=== PATIENT | female | born 1950 | race Caucasian/White ===

== ENCOUNTER 2019-06-10 20:40 | Observation (INO) | payer MEDICARE, OTHER, SELFPAY ==
[2019-06-10 20:42] VITALS: BP 157/86; PULSE 87; RESP 18; TEMP 36.2; O2SAT 100; BMI 25.0
--- NOTE | 2019-06-10 20:50 | EKG12_ITS ---
Test Reason : CP Blood Pressure : / mmHG Vent. Rate : 081 BPM Atrial Rate : 081 BPM P-R Int : 106 ms QRS Dur : 086 ms QT Int : 394 ms P-R-T Axes : -06 017 035 degrees QTc Int : 457 ms Sinus rhythm with short TN Otherwise normal ECG Confirmed by JOHNATHAN WILLIS, FARHANA ([id number]), it risk and assurance manager RYNE BLAS ([id number]) on 06/12/2019 11:45:28 AM Referred By: SHAINA Confirmed By:DERIK MANN MD
--- NOTE | 2019-06-10 21:45 | RAD_ITS ---
STUDY: X-RAY CHEST REASON FOR EXAM: Female, 68 years old. Chest pain TECHNIQUE: Portable chest COMPARISON: None. FINDINGS: There is scattered mild pulmonary scarring. There are scattered bulla.. There is no demonstrated pleural abnormality. Normal size heart. Normal mediastinum and ryan. Normal visualized pulmonary arteries. Normal visualized aortic arch and descending thoracic aorta. Normal visualized thoracic spine. Normal visualized ribs, clavicles, and shoulders. There is no demonstrated abnormality of the visualized soft tissue structures of the upper abdomen. RAD/Chest 1 View (Portable) IMPRESSION: Likely COPD changes Scattered pulmonary scarring. Electronically Signed: Hayden Moser, at 5:46 EDT Tel , Service support ,
[2019-06-10 21:59] VITALS: PULSE 76; RESP 18; O2SAT 96; O2SAT 97
[2019-06-10 22:25] LABS: Absolute Lymphocyte Count 1.09 X10^3/uL (0.83-4.51); Absolute Neutrophil Count 2.9 X10^3/uL (2.0-7.7); Basophil# 0.04 X10^3/uL; Basophil% 0.9 % (0-1); Eosinophils% 2.3 % (0-5); Hemoglobin 10.5 g/dL (12.0-15.0); Lymphocyte # 1.09 X10^3/ul (4.0); Lymphocyte % 24.5 % (19-41); Mean Corp Hgb Conc 32.8 g/dL (32-36); Mean Corpuscular Hgb 29.3 pg (27.0-32.0); Mean Corpuscular Volume 89.4 fL (81-99); Mean Platelet Vol. 10.1 fl (6.2-12.0); Monocyte# 0.31 X10^3/uL; NRBC Flagged by Analyzer 0 % (0-5); Neutrophil # 2.89 X10^3/uL (2.7-7.7); Neutrophil % 65.1 % (47-70); POSITIVE MORPHOLOGY YES; Platelet Count 205 K/mm3 (150-450); RBC Distribution Width SD 39.1 fl (35.1-43.9); Red Blood Count 3.58 M/mm3 (4.2-5.4); White Blood Count 4.4 K/mm3 (4.4-11.0)
[2019-06-10 22:29] LABS: Differential Indicated SCAN CRITERIA MET
[2019-06-10 22:36] LABS: International Normalized Ratio 1.1; Prothrombin Time (Protime)PT. 13.7 SECONDS (11.7-14.9)
[2019-06-10 22:38] LABS: Anion Gap 8 (5-15); BUN 22 mg/dL (7-18); BUN/Creat Ratio 23.8 RATIO (10-20); Calcium,Total 8.5 mg/dL (8.5-10.1); Chloride 108 mmol/L (98-107); Creatinine, Serum 0.92 mg/dL (0.55-1.02); EST Glomerular Filtration Rate 64 mL/min (>60); Est Glom Filt Rate - Afr Amer 78 mL/min (>60); Estimated Creatinine Clearance 52.66 ml/min; Glucose 112 mg/dL (74-106); Potassium 3.5 mmol/L (3.5-5.1); Sodium Level 144 mmol/L (136-145)
[2019-06-10 22:51] LABS: Differential Comment SCANNED; Platelet Estimate ADEQUATE (ADEQ); Red Cell Morphology NORM C+C NORMAL (NORM C&C)
[2019-06-10 23:00] VITALS: BP 129/65; PULSE 75; RESP 16; O2SAT 96
--- NOTE | 2019-06-10 23:48 | ED.VISSUMM ---
- ER Visit Summary Date of Service: 06/10/19 Chief Complaint: Chest pain History of Present Illness: The patient is a 68 F with chest pain for weeks. It feels like a burning pain. It starts in her mid chest and radiates down her arms. Worse with exertion and eating. No history of coronary disease. She thought it might be related to acid reflux and has been taking both a PPI and an H2 shaye with no improvement. Physical Examination: Afebrile and vital signs unremarkable. Alert and oriented. No acute distress. Heart regular. Lungs clear. Skin appears normal. Extremities unremarkable. Test Results: EKG shows sinus rhythm at a rate of 81 with no sign of acute ischemia or infarction pattern. Chest x-ray is pending official read, but there appears to be chronic changes but nothing acute. Hemoglobin 10.5. Metabolic panel unremarkable. Troponin indeterminate at 0.082. Emergency Department Course and Treatment: Patient treated with aspirin and placed on a monitor. Troponin was indeterminate. Patient has no risk factors for PE besides age. No risk factors for aortic disease. No physical exam findings noted consistent with PE or aortic disease. Hospitalist was contacted for observation. Treatment Plan: As above Disposition: Admission Impression: 1. Chest pain This note was generated with [employer] dictation software. It may contain incorrect words, spelling, and punctuation that were not noted in review of the chart prior to signing ED Disposition - Plan for ED Patient: Referrals: Clement Rivas MD [Primary Care Provider] -
--- NOTE | 2019-06-10 23:49 | PCM.HP.STD ---
Problem List (1) Chest pain Status: Acute Qualifiers: Chest pain type: unspecified Qualified Code(s): R07.9 - Chest pain, unspecified (2) Chronic anemia Status: Chronic (3) Sjogren's disease Status: Chronic Qualifiers: Sjogren's organ involvement: unspecified organ involvement Qualified Code(s): M35.00 - Sicca syndrome, unspecified (4) Anxiety and depression Status: Chronic (5) GERD (gastroesophageal reflux disease) Status: Chronic Qualifiers: Esophagitis presence: esophagitis presence not specified Qualified Code(s): K21.9 - Gastro-esophageal reflux disease without esophagitis (6) Hypothyroidism Status: Chronic Qualifiers: Hypothyroidism type: unspecified Qualified Code(s): E03.9 - Hypothyroidism, unspecified History of Present Illness Date of Admission: 06/10/19 Chief Complaint: Chest pain The patient is a 68 y/o F w/ PMHx: Anxiety and Depression, Hypothyroidism, Sjogren's disease, GERD, Chronic anemia who presents to the [facility] ED on 06/10/19 with history of atypical ongoing several month history of L chest, specifically beneath the breast discomfort, described as a burning sensation, previously more mild, 2-3 in severity/10, onset with activity; however, over the last 2 weeks she notes it has been more intense, rated 6-7/10 in severity with now associated BL UE pain when occurring with no specific dyspnea, nausea, emesis or diaphoresis associated; however, she concurrently notes that the same burning discomfort can also be elicited with certain movements and with increased respiratory effort. Upon ED presentation evaluation, she notes no current chest discomfort. Patient has been following with her primary care physician for the symptoms and being treated for reflux without market improvement on H2B and PPI. Work-up in the ED included T 97.2, heart rate 87, BP 157/86 with repeat 129/65, respiratory rate 18, 100% on room air, CBC with WC 4.4, hemoglobin 10.5, platelet 205 without shift, unremarkable coags, BMP with chloride 108, BUN/creatinine 22/0.92, glucose 112, chest x-ray with no acute cardiopulmonary findings, EKG with sinus rhythm with no acute evidence of ischemia, troponin 0.082. In the ED patient ministered aspirin therapy. Past Medical History Past Medical History (Chronic Problems): Chronic Problems Chronic anemia (Chronic) Sjogren's disease (Chronic) Anxiety and depression (Chronic) GERD (gastroesophageal reflux disease) (Chronic) Hypothyroidism (Chronic) Allergies doxycycline Adverse Reaction (Verified 06/10/19 20:44) Other Home Medications: Ambulatory Orders Medication Instructions Recorded Cholecalciferol (Vitamin D3) 1,000 unit PO DAILY 12/17/13 [Vitamin D3] Hydroxychloroquine [Plaquenil] 200 mg PO BIDCM 12/17/13 Meloxicam [Mobic] 15 mg PO DAILY 12/17/13 Sertraline HCl [Zoloft] 25 mg PO DAILY 12/17/13 Levothyroxine Sodium [Synthroid] 25 mcg PO 06/10/19 Omeprazole 20 mg PO DAILY 06/10/19 Ranitidine HCl [Zantac] 150 mg PO 06/10/19 Surgical History: - - Bilateral tubal ligation. 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 Paternal History Items: - - Patient notes a paternal family history of heart disease, CHF. Review of Systems Constitutional: Reports: Fatigue. Denies: Chills, Fever, Weight Change HEENT: Denies: Head Aches, Sinus Congestion, Sinus Drainage Cardiovascular: Reports: Chest Pain. Denies: Palpitations Respiratory: Denies: Cough, Shortness of Breath, Shortness of breath at rest, Shortness of breath upon exertion, Sputum production Gastrointestinal: Denies: Abdominal Pain, Nausea, Vomiting Genitourinary: Denies: Dysuria Musculoskeletal: Reports: Arm Pain, Joint Pain. Denies: Joint Tenderness Skin: Denies: Rash, Wounds Neurological: Denies: Numbness, Tingling, Focal weakness Psychiatric: Reports: Anxiety, Depression. Denies: Homicidal Ideations, Suicidal Ideations Hematologic/ Lymphatic: Reports: Anemia. Denies: Easy Bruising, Easy Bleeding VTE Information - Inpt Only VTE Present on Admission: No VTE Mechan Device Prophylaxis: SCD's VTE Pharm Prophylaxis ordered?: Yes Patient Problems: Active and Suspected Problems Chest pain (Acute) Subjective: Patient seated upright in ED bed, mildly fatigued, no current chest discomfort. Objective: Physical Examination: General: awake, alert, oriented x 3 and cooperative, seated upright in ED bed in no apparent distress. Skin: normal color, turgor, no icterus, cyanosis. HEENT: AT/NC, EOMI, PERRLA, MMM, no carotid bruits or JVD noted. Lungs: CTA bilaterally, moderate effort, mild decrease BL bases, no rales, ronchi or wheezing. Heart: Regular rate and rhythm; no gallop, rub audible, no reproducible discomfort with palpation but with movement in the bed does note onset. Abdomen: soft, NTTP, ND, normal BS, no HSM. Extremities: no cyanosis, clubbing, or edema. Neurological: patient awake, alert, oriented x 3; cognitive function intact; pupils equally reactive to light and accomodation; cranial nerves II-XII grossly normal, moving all 4 extremities, no focal deficits, strength mildly global decrease secondary to acute presentation. Psychiatric: affect appears normal, no acute evidence of depressive or anxiety feelings. - Physical Exam Vital Signs Temp Pulse Resp BP Pulse Ox 97.2 F L 75 16 129/65 H 96 06/10/19 20:42 06/10/19 23:00 06/10/19 23:00 06/10/19 23:00 06/10/19 23:00 Oxygen Delivery Method Room Air Weight: 150 lb Body Mass Index (BMI) 25.0 Laboratory Tests Past 24 Hrs 06/10/19 06/10/19 06/10/19 22:09 22:09 22:09 WBC 4.4 RBC 3.58 L Hgb 10.5 L Hct 32.0 L MCV 89.4 MCH 29.3 MCHC 32.8 RDW Std Deviation 39.1 RDW Coeff of Joseph 12.0 Plt Count 205 MPV 10.1 Immature Gran % (Auto) 0.200 Neut % (Auto) 65.1 Lymph % (Auto) 24.5 [place] % (Auto) 7.0 Eos % (Auto) 2.3 Baso % (Auto) 0.9 Absolute Neuts (auto) 2.9 Absolute Lymphs (auto) 1.09 Nucleated RBC % 0 Differential Comment SCANNED Platelet Estimate ADEQUATE RBC Morphology NORM C+C PT 13.7 INR 1.1 Sodium 144 Potassium 3.5 Chloride 108 H Carbon Dioxide 28.0 Anion Gap 8 BUN 22 H Creatinine 0.92 Estim Creat Clear Calc 52.66 Est GFR (MDRD) Af Amer 78 Est GFR (MDRD) Non-Af 64 BUN/Creatinine Ratio 23.8 H Glucose 112 H Calcium 8.5 Troponin I 0.082 H Assessment/Plan All Active Problems Chest pain (Acute) The patient is a 68 y/o F w/ PMHx: Anxiety and Depression, Hypothyroidism, Sjogren's disease, GERD, Chronic anemia who presents to the [facility] ED on 06/10/19 with history of atypical ongoing several month history of L chest, specifically beneath the breast discomfort, described as a burning sensation, previously more mild, 2-3 in severity/10, onset with activity; however, over the last 2 weeks she notes it has been more intense, rated 6-7/10 in severity with now associated BL UE pain. 1. Atypical Chest Pain with indeterminate cardiac enzyme: Do suspect some component of musculoskeletal but atypical. EKG in ED sinus rhythm with no acute evidence of ischemia, CXR w/ no acute cardiopulmonary findings, initial trop mildly elevated 0.082. Will admit to the PCU, place on a monitored bed to assure no acute myocardial infarction with serial cardiac enzymes and EKGs. If cardiac enzymes remain similar, EKG with no changes will pursue cardiac stress testing in a.m. ASA, NG, morphine. FLP in AM, mag pending. 2. Sjogren's disease: We will continue home Plaquenil regimen. Holding Mobic regimen given acute presentation #1 pending evaluation. 3. Hypothyroidism: Continue home synthroid regimen. 4. Anxiety and depression: We will continue home sertraline regimen 5. Chronic normocytic anemia, unclear specific etiology: Admission hemoglobin 10.5, similar prior, iron panel, ferritin, vitamin B12 and folic acid pending. 6. GERD: Continue home PPI. 7. DVT prophylaxis: SCDs, Lovenox. Code Visit OBSV E&M: 07661 Initial observation care L3
[2019-06-11] VITALS (21 sets, daily range): BP systolic 124–162; BP diastolic 66–83; PULSE 71–86; RESP 16–18; TEMP 36.6–36.8; O2SAT 94–100; BMI 25.2; BMI 25.3
[2019-06-11] MEDS: Aspirin 81 MG TAB.CHEW 324 MG PO (00:08)
--- NOTE | 2019-06-11 00:54 | EKG12_ITS ---
Test Reason : CP ADMIT Blood Pressure : / mmHG Vent. Rate : 077 BPM Atrial Rate : 077 BPM P-R Int : 128 ms QRS Dur : 086 ms QT Int : 406 ms P-R-T Axes : 059 019 044 degrees QTc Int : 459 ms Normal sinus rhythm Normal ECG When compared with ECG of 17-DEC-2013 15:07, No significant change was found Confirmed by JOHNATHAN WILLIS, FARHANA ([id number]), manager editorial RICARDO VIVAS ([id number]) on 06/15/2019 4:08:42 PM Referred By: DR LOPEZ Confirmed By:DERIK MANN MD
[2019-06-11] MEDS: 0.9% Normal Saline 1,000 ML 100 ML IV ×2 (01:13→15:08)
[2019-06-11 04:48] LABS: Absolute Lymphocyte Count 1.14 X10^3/uL (0.83-4.51); Absolute Neutrophil Count 2.4 X10^3/uL (2.0-7.7); Basophil# 0.04 X10^3/uL; Eosinophil# 0.09 X10^3/uL; Eosinophils% 2.3 % (0-5); Hematocrit 31.3 % (37-47); Hemoglobin 10.2 g/dL (12.0-15.0); Lymphocyte # 1.14 X10^3/ul (4.0); Lymphocyte % 29.1 % (19-41); Mean Corp Hgb Conc 32.6 g/dL (32-36); Mean Corpuscular Hgb 28.9 pg (27.0-32.0); Mean Corpuscular Volume 88.7 fL (81-99); Mean Platelet Vol. 9.8 fl (6.2-12.0); Monocyte# 0.24 X10^3/uL; Monocyte% 6.1 % (0-10); NRBC Flagged by Analyzer 0 % (0-5); Neutrophil % 61.2 % (47-70); POSITIVE MORPHOLOGY YES; Platelet Count 203 K/mm3 (150-450); RBC Distribution Width CV 12.1 % (11.6-14.6); RBC Distribution Width SD 39.2 fl (35.1-43.9); Red Blood Count 3.53 M/mm3 (4.2-5.4); White Blood Count 3.9 K/mm3 (4.4-11.0)
[2019-06-11 04:49] LABS: Differential Indicated SCAN CRITERIA MET
[2019-06-11 04:54] LABS: International Normalized Ratio 1.1; Partial Thromboplast Time 31.5 Seconds (24.1-36.2)
[2019-06-11 05:16] LABS: Anion Gap 5 (5-15); BUN 17 mg/dL (7-18); BUN/Creat Ratio 21.2 RATIO (10-20); Calcium,Total 8.4 mg/dL (8.5-10.1); Chloride 111 mmol/L (98-107); Cholesterol 128 mg/dL (200); EST Glomerular Filtration Rate 75 mL/min (>60); Est Glom Filt Rate - Afr Amer 91 mL/min (>60); Estimated Creatinine Clearance 60.56 ml/min; Ferritin 152 ng/mL (8-252); Glucose 95 mg/dL (74-106); High Density Lipoprotein 44 mg/dL; Iron 90 ug/dL (50-170); Iron Binding Capacity,Total 187 ug/dL (250-450); PERCENT IRON SATURATION 48.1 % (15.0-55.0); Potassium 3.6 mmol/L (3.5-5.1); Sodium Level 144 mmol/L (136-145); Triglycerides 57 mg/dL; Very Low Density Lipoprotein 11 mg/dL (5-40)
[2019-06-11] MEDS: Aspirin E.C. 81 MG Tablet PO (05:19)
[2019-06-11] MEDS: Levothyroxine 25 MCG TABLET PO (05:19)
[2019-06-11 05:21] LABS: Vitamin B12 238 pg/mL (211-911)
[2019-06-11 05:28] LABS: Differential Comment SCANNED; Platelet Estimate ADEQUATE (ADEQ); Platelet Morphology LARGE; Reactive Lymphocyte RARE
[2019-06-11] MEDS: Acetaminophen 325 MG Tablet 650 MG PO (08:42)
--- NOTE | 2019-06-11 12:12 | CON.PCM_ITS ---
Problem List (1) Chest pain Status: Acute Qualifiers: Chest pain type: unspecified Qualified Code(s): R07.9 - Chest pain, unspecified Reason for Consult Date of Consultation: 06/11/19 History of Present Illness: The patient is a 68 y/o F w/ PMHx: Anxiety and Depression, Hypothyroidism, Sjogren's disease, GERD, Chronic anemia who presents to the [facility] ED on 06/10/19 with history of atypical ongoing several month history of L chest, specifically beneath the breast discomfort, described as a burning sensation, previously more mild, 2-3 in severity/10, onset with activity; however, over the last 2 weeks sh ana notes it has been more intense, rated 6-7/10 in severity with now associated BL UE pain when occurring with no specific dyspnea, nausea, emesis or diaphoresis associated; however, she concurrently notes that the same burning discomfort can also be elicited with certain movements and with increased respiratory effort. Upon ED presentation evaluation, she notes no current chest discomfort. Patient has been following with her primary care physician for the symptoms and being treated for reflux without market improvement on H2B and PPI. Work-up in the ED included T 97.2, heart rate 87, BP 157/86 with repeat 129/65, respiratory rate 18, 100% on room air, CBC with WC 4.4, hemoglobin 10.5, platelet 205 without shift, unremarkable coags, BMP with chloride 108, BUN/creatinine 22/0.92, glucose 112, chest x-ray with no acute cardiopulmonary findings, EKG with sinus rhythm with no acute evidence of ischemia, troponin 0.082. In the ED patient ministered aspirin therapy. Initially the plan was to get a stress echo. On the resting images there was minimal inferolateral hypokinesis. Due to this finding and also because of borderline troponin that does not have a clear alternate explanation and the somewhat concerning nature of the chest pain due to exertional onset I discussed treatment options including coronary angiography with the patient. Review of systems: All systems reviewed. All else is negative except that in the HPI [] Past Medical History Allergies/Adverse Reactions: Allergies doxycycline Adverse Reaction (Verified 06/11/19 00:40) Other Home Medications: Ambulatory Orders Medication Instructions Recorded Cholecalciferol (Vitamin D3) 1,000 unit PO DAILY 12/17/13 [Vitamin D3] Hydroxychloroquine [Plaquenil] 200 mg PO BIDCM 12/17/13 Meloxicam [Mobic] 15 mg PO DAILY 12/17/13 Sertraline HCl [Zoloft] 25 mg PO DAILY 12/17/13 Levothyroxine Sodium [Synthroid] 25 mcg PO DAILY 06/10/19 Omeprazole 20 mg PO DAILY 06/10/19 Ranitidine HCl [Zantac] 150 mg PO BID 06/10/19 Past Medical History (Chronic Problems): Chronic Problems Chronic anemia (Chronic) Sjogren's disease (Chronic) Anxiety and depression (Chronic) GERD (gastroesophageal reflux disease) (Chronic) Hypothyroidism (Chronic) Surgical History: - - Bilateral tubal ligation. 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 Paternal History Items: - - Patient notes a paternal family history of heart disease, CHF. Lives: Spouse/ Significant Other Smoking Status: Never smoker Tobacco Use: Non-smoker Alcohol: None Drugs: None Objective: Vital Signs Temp Pulse Resp BP Pulse Ox 98.2 F 75 17 124/68 H 100 06/11/19 05:13 06/11/19 06:46 06/11/19 05:13 06/11/19 05:13 06/11/19 05:13 Oxygen Delivery Method Room Air Weight: 151 lb 14.376 oz Body Mass Index (BMI) 25.2 Intake and Output for Last 24 Hours 06/09/19 06/10/19 06/11/19 23:59 23:59 23:59 Intake Total 841.67 / 841.67 Balance 841.67 / 841.67 General: Awake, Alert, Oriented x 3 HEENT: Atraumatic Oral: Moist Mucosa Neck: Supple Lungs: Clear to auscultation Cardiovascular: Normal S1, Normal S2 Abdomen: Soft Extremities: No edema Skin: No Rashes Psych/Mental Status: Appropriate 06/10/19 22:09: WBC 4.4, RBC 3.58 L, Hgb 10.5 L, Hct 32.0 L, MCV 89.4, MCH 29.3, MCHC 32.8, Plt Count 205, MPV 10.1, Immature Gran % (Auto) 0.200, Neut % (Auto) 65.1, Lymph % (Auto) 24.5, [place] % (Auto) 7.0, Eos % (Auto) 2.3, Baso % (Auto) 0.9, Absolute Neuts (auto) 2.9, Nucleated RBC % 0 06/10/19 22:09: PT 13.7, INR 1.1 06/10/19 22:09: Sodium 144, Potassium 3.5, Chloride 108 H, Carbon Dioxide 28.0, Anion Gap 8, BUN 22 H, Creatinine 0.92, Est GFR (MDRD) Af Amer 78, Est GFR (MDRD) Non-Af 64, BUN/Creatinine Ratio 23.8 H, Glucose 112 H, Calcium 8.5, Troponin I 0.082 H 06/11/19 01:18: Magnesium 2.0 06/11/19 01:18: Troponin I 0.084 H 06/11/19 04:36: WBC 3.9 L, RBC 3.53 L, Hgb 10.2 L, Hct 31.3 L, MCV 88.7, MCH 28.9, MCHC 32.6, Plt Count 203, MPV 9.8, Immature Gran % (Auto) 0.300, Neut % (Auto) 61.2, Lymph % (Auto) 29.1, [place] % (Auto) 6.1, Eos % (Auto) 2.3, Baso % (Auto) 1.0, Absolute Neuts (auto) 2.4, Nucleated RBC % 0 06/11/19 04:36: PT 14.0, INR 1.1, APTT 31.5 06/11/19 04:36: Sodium 144, Potassium 3.6, Chloride 111 H, Carbon Dioxide 28.0, Anion Gap 5, BUN 17, Creatinine 0.80, Est GFR (MDRD) Af Amer 91, Est GFR (MDRD) Non-Af 75, BUN/Creatinine Ratio 21.2 H, Glucose 95, Calcium 8.4 L, Iron 90, TIBC 187 L, Iron Saturation 48.1, Ferritin 152, Troponin I 0.070 H, Triglycerides 57, Cholesterol 128, LDL Cholesterol 73, VLDL Cholesterol 11, HDL Cholesterol 44 Rhythm: EKG: ECHO: Stress Test: Cardiac Cath: PCI: CT Surgery: Holter monitor: EPS: PPM: CXR: Chest CT Scan: Assessment/Plan Chest pain: Patient's troponin is borderline abnormal. Echo shows possible mild inferolateral hypokinesis. Discussed treatment options with the patient in detail. We will proceed with coronary angiography. Risks and benefits and alternate approaches discussed. Patient is willing to proceed. Rest of the management will be based on angiographic findings.
[2019-06-11] MEDS: Sertraline 50 MG Tablet 25 MG PO (13:18)
[2019-06-11] MEDS: Hydroxychloroquine 200 MG Tablet PO ×2 (13:19→18:20)
[2019-06-11] MEDS: Pantoprazole Sodium 20 MG Tablet PO (13:19)
--- NOTE | 2019-06-11 14:04 | PN_ITS ---
<Lisa Granados - Last Filed: 06/11/19 14:19> Subjective: Patient seen and examined. Patient had abnormal stress echo followed by cardiac catheterization in which surgical evaluation for coronary revascularization was recommended. Patient would like transferred to [facility]. Transfer initiated per cardiology. She denies current chest pain. - Physical Exam General: Alert, Oriented x3, Cooperative HEENT: Atraumatic, PERRLA, EOMI, Normocephalic Neck: Supple, No JVD, Negative Carotid Bruits Lungs: Clear to auscultation, Normal air movement Cardiovascular: Regular rate, Regular Rhythm, Normal S1, Normal S2, No murmurs Abdomen: Bowel Sounds Present, Soft, Non Tender, Non-Distended Extremities: No clubbing, No cyanosis, No edema, Capillary Refill Less than 3 Seconds Skin: No rashes, No breakdown Musculoskeletal: No Tenderness to Palpation of Joints or Extremities Neurological: Cranial nerves II-XII grossly intact, Neuro grossly intact Psych/Mental Status: Normal Affect, Appropriate Vital Signs Temp Pulse Resp BP Pulse Ox 98.1 F 71 16 150/77 H 98 06/11/19 14:00 06/11/19 14:00 06/11/19 14:00 06/11/19 14:00 06/11/19 14:00 Oxygen Delivery Method Room Air Weight: 151 lb 14.376 oz Body Mass Index (BMI) 25.2 Intake and Output for Last 24 Hours 06/09/19 06/10/19 06/11/19 23:59 23:59 23:59 Intake Total 841.67 / 841.67 Balance 841.67 / 841.67 Laboratory Tests Past 24 Hrs 06/10/19 06/10/19 06/10/19 22:09 22:09 22:09 WBC 4.4 RBC 3.58 L Hgb 10.5 L Hct 32.0 L MCV 89.4 MCH 29.3 MCHC 32.8 RDW Std Deviation 39.1 RDW Coeff of Joseph 12.0 Plt Count 205 MPV 10.1 Immature Gran % (Auto) 0.200 Neut % (Auto) 65.1 Lymph % (Auto) 24.5 [place] % (Auto) 7.0 Eos % (Auto) 2.3 Baso % (Auto) 0.9 Absolute Neuts (auto) 2.9 Absolute Lymphs (auto) 1.09 Nucleated RBC % 0 Differential Comment SCANNED Reactive Lymphocytes Platelet Estimate ADEQUATE Plt Morphology Comment RBC Morphology NORM C+C PT 13.7 INR 1.1 APTT Sodium 144 Potassium 3.5 Chloride 108 H Carbon Dioxide 28.0 Anion Gap 8 BUN 22 H Creatinine 0.92 Estim Creat Clear Calc 52.66 Est GFR (MDRD) Af Amer 78 Est GFR (MDRD) Non-Af 64 BUN/Creatinine Ratio 23.8 H Glucose 112 H Calcium 8.5 Magnesium Iron TIBC Iron Saturation Ferritin Troponin I 0.082 H Triglycerides Cholesterol LDL Cholesterol VLDL Cholesterol HDL Cholesterol Vitamin B12 Folate 06/11/19 06/11/19 06/11/19 01:18 01:18 04:36 WBC RBC Hgb Hct MCV MCH MCHC RDW Std Deviation RDW Coeff of Joseph Plt Count MPV Immature Gran % (Auto) Neut % (Auto) Lymph % (Auto) [place] % (Auto) Eos % (Auto) Baso % (Auto) Absolute Neuts (auto) Absolute Lymphs (auto) Nucleated RBC % Differential Comment Reactive Lymphocytes Platelet Estimate Plt Morphology Comment RBC Morphology PT INR APTT Sodium Potassium Chloride Carbon Dioxide Anion Gap BUN Creatinine Estim Creat Clear Calc Est GFR (MDRD) Af Amer Est GFR (MDRD) Non-Af BUN/Creatinine Ratio Glucose Calcium Magnesium 2.0 Iron TIBC Iron Saturation Ferritin Troponin I 0.084 H Triglycerides Cholesterol LDL Cholesterol VLDL Cholesterol HDL Cholesterol Vitamin B12 238 Folate 06/11/19 06/11/19 06/11/19 04:36 04:36 04:36 WBC 3.9 L RBC 3.53 L Hgb 10.2 L Hct 31.3 L MCV 88.7 MCH 28.9 MCHC 32.6 RDW Std Deviation 39.2 RDW Coeff of Joseph 12.1 Plt Count 203 MPV 9.8 Immature Gran % (Auto) 0.300 Neut % (Auto) 61.2 Lymph % (Auto) 29.1 [place] % (Auto) 6.1 Eos % (Auto) 2.3 Baso % (Auto) 1.0 Absolute Neuts (auto) 2.4 Absolute Lymphs (auto) 1.14 Nucleated RBC % 0 Differential Comment SCANNED Reactive Lymphocytes RARE Platelet Estimate ADEQUATE Plt Morphology Comment LARGE RBC Morphology PT 14.0 INR 1.1 APTT 31.5 Sodium 144 Potassium 3.6 Chloride 111 H Carbon Dioxide 28.0 Anion Gap 5 BUN 17 Creatinine 0.80 Estim Creat Clear Calc 60.56 Est GFR (MDRD) Af Amer 91 Est GFR (MDRD) Non-Af 75 BUN/Creatinine Ratio 21.2 H Glucose 95 Calcium 8.4 L Magnesium Iron 90 TIBC 187 L Iron Saturation 48.1 Ferritin 152 Troponin I 0.070 H Triglycerides 57 Cholesterol 128 LDL Cholesterol 73 VLDL Cholesterol 11 HDL Cholesterol 44 Vitamin B12 Folate 18.80 Medical Necessity - Tobacco Use Smoking Status: Never smoker Tobacco Use: Non-smoker Assessment/Plan All Active Problems Chest pain (Acute) 1. Chest pain/abnormal troponin/CAD-transfer to [facility] for coronary revascularization. Abnormal stress echo. Patient underwent cardiac catheterization 06/11/2019 where patient was shown to have multivessel CAD and cardiology recommended transfer to tertiary facility for coronary revascularization. 2. Sjogren's disease-continue home Plaquenil regimen. Mobic on hold. 3. Hypothyroidism-continue Synthroid regimen. 4. Anxiety/depression-continue home sertraline regimen. 5. Chronic normocytic anemia-stable, trend CBC. 6. GERD-continue PPI. DVT prophylaxis-Lovenox Discharge planning: Transfer pending to [facility]. This patient was seen by QUINTIN Cardona under the supervision of Dr. Vallejo. <Jay Vallejo - Last Filed: 06/11/19 15:35> Subjective: Patient is admitted with chest pain mainly burning pain over left inframammary region exacerbated by exertion walking climbing relief with chest pain for about 1 to 2 months. Initially she ignored it thinking of GERD/heartburn. Stress echo was done and reported abnormal. Patient went for heart cath. - Physical Exam General: Alert, Oriented x3, Cooperative HEENT: Atraumatic, PERRLA, EOMI, Normocephalic Neck: Supple, No JVD, Negative Carotid Bruits Lungs: Clear to auscultation, Normal air movement, No rhonchi, No wheeze, No rales Cardiovascular: Regular rate, Regular Rhythm, Normal S1, Normal S2, No murmurs Abdomen: Bowel Sounds Present, Soft, Non Tender, Non-Distended Extremities: No edema, Capillary Refill Less than 3 Seconds Skin: No rashes, No breakdown Musculoskeletal: No Tenderness to Palpation of Joints or Extremities, Arthritic Changes Neurological: Cranial nerves II-XII grossly intact, Deep Tendon Reflexes 2+/4 and Symmetrical, Neuro grossly intact Psych/Mental Status: Normal Affect, Appropriate Vital Signs Temp Pulse Resp BP Pulse Ox 98.1 F 78 16 155/79 H 99 06/11/19 15:00 06/11/19 15:00 06/11/19 15:00 06/11/19 15:00 06/11/19 15:00 Oxygen Delivery Method Room Air Weight: 151 lb 14.376 oz Body Mass Index (BMI) 25.2 Intake and Output for Last 24 Hours 06/09/19 06/10/19 06/11/19 23:59 23:59 23:59 Intake Total 1030.00 / 1030.00 Balance 1030.00 / 1030.00 Laboratory Tests Past 24 Hrs 06/10/19 06/10/19 06/10/19 22:09 22:09 22:09 WBC 4.4 RBC 3.58 L Hgb 10.5 L Hct 32.0 L MCV 89.4 MCH 29.3 MCHC 32.8 RDW Std Deviation 39.1 RDW Coeff of Joseph 12.0 Plt Count 205 MPV 10.1 Immature Gran % (Auto) 0.200 Neut % (Auto) 65.1 Lymph % (Auto) 24.5 Hardeman % (Auto) 7.0 Eos % (Auto) 2.3 Baso % (Auto) 0.9 Absolute Neuts (auto) 2.9 Absolute Lymphs (auto) 1.09 Nucleated RBC % 0 Differential Comment SCANNED Reactive Lymphocytes Platelet Estimate ADEQUATE Plt Morphology Comment RBC Morphology NORM C+C PT 13.7 INR 1.1 APTT Sodium 144 Potassium 3.5 Chloride 108 H Carbon Dioxide 28.0 Anion Gap 8 BUN 22 H Creatinine 0.92 Estim Creat Clear Calc 52.66 Est GFR (MDRD) Af Amer 78 Est GFR (MDRD) Non-Af 64 BUN/Creatinine Ratio 23.8 H Glucose 112 H Calcium 8.5 Magnesium Iron TIBC Iron Saturation Ferritin Troponin I 0.082 H Triglycerides Cholesterol LDL Cholesterol VLDL Cholesterol HDL Cholesterol Vitamin B12 Folate 06/11/19 06/11/19 06/11/19 01:18 01:18 04:36 WBC RBC Hgb Hct MCV MCH MCHC RDW Std Deviation RDW Coeff of Joseph Plt Count MPV Immature Gran % (Auto) Neut % (Auto) Lymph % (Auto) Hardeman % (Auto) Eos % (Auto) Baso % (Auto) Absolute Neuts (auto) Absolute Lymphs (auto) Nucleated RBC % Differential Comment Reactive Lymphocytes Platelet Estimate Plt Morphology Comment RBC Morphology PT INR APTT Sodium Potassium Chloride Carbon Dioxide Anion Gap BUN Creatinine Estim Creat Clear Calc Est GFR (MDRD) Af Amer Est GFR (MDRD) Non-Af BUN/Creatinine Ratio Glucose Calcium Magnesium 2.0 Iron TIBC Iron Saturation Ferritin Troponin I 0.084 H Triglycerides Cholesterol LDL Cholesterol VLDL Cholesterol HDL Cholesterol Vitamin B12 238 Folate 06/11/19 06/11/19 06/11/19 04:36 04:36 04:36 WBC 3.9 L RBC 3.53 L Hgb 10.2 L Hct 31.3 L MCV 88.7 MCH 28.9 MCHC 32.6 RDW Std Deviation 39.2 RDW Coeff of Joseph 12.1 Plt Count 203 MPV 9.8 Immature Gran % (Auto) 0.300 Neut % (Auto) 61.2 Lymph % (Auto) 29.1 Hardeman % (Auto) 6.1 Eos % (Auto) 2.3 Baso % (Auto) 1.0 Absolute Neuts (auto) 2.4 Absolute Lymphs (auto) 1.14 Nucleated RBC % 0 Differential Comment SCANNED Reactive Lymphocytes RARE Platelet Estimate ADEQUATE Plt Morphology Comment LARGE RBC Morphology PT 14.0 INR 1.1 APTT 31.5 Sodium 144 Potassium 3.6 Chloride 111 H Carbon Dioxide 28.0 Anion Gap 5 BUN 17 Creatinine 0.80 Estim Creat Clear Calc 60.56 Est GFR (MDRD) Af Amer 91 Est GFR (MDRD) Non-Af 75 BUN/Creatinine Ratio 21.2 H Glucose 95 Calcium 8.4 L Magnesium Iron 90 TIBC 187 L Iron Saturation 48.1 Ferritin 152 Troponin I 0.070 H Triglycerides 57 Cholesterol 128 LDL Cholesterol 73 VLDL Cholesterol 11 HDL Cholesterol 44 Vitamin B12 Folate 18.80 Assessment/Plan This 60-year-old female with no prior history of coronary artery/[place] came to ER with chest pain, burning type left inframammary region for about 1 to 2 months. EKG shows normal sinus rhythm with no dynamic ST-T changes. Chest x- ray no acute cardiopulmonary finding. Patient was admitted in PCU. Serial troponins were done and shows mildly elevated 0.082 [id number]. Patient was further taken for stress echo which was read as abnormal with minimal inferolateral hypokinesis. Patient was taken for heart cath, [facility] for borderline elevated troponin and abnormal stress echo. Cardiac cath shows 3 vessel coronary artery disease, 100% RCA, 100% OM1, and 100% circumflex. 60 to 70% LAD. Patient is recommended transferred to acute care for CABG. Dr. Blanton from [facility] accepted the patient. Transfer is being arranged. I discussed with the patient and updated about the plan. I think she is good operative candidate with good functional capacity. Fasting lipid profile triglyceride 57, LDL 73, HDL 44. Other comorbidities as mentioned above are stable. The patient is being transferred to [facility] for coronary revascularization.
--- NOTE | 2019-06-11 14:27 | PCM.DC.SUM ---
<Lisa Granados - Last Filed: 06/11/19 14:31> Discharge Date and Diagnosis Date of Admission: 06/10/19 Date of Discharge: 06/11/19 - Primary Discharge Diagnosis Active and Suspected Problems 1. Chest pain/abnormal troponin/CAD-transfer to [facility] for coronary revascularization. 2. Sjogren's disease 3. Hypothyroidism 4. Anxiety/depression 5. Chronic normocytic anemia 6. GERD - Secondary Discharge Diagnosis Chronic Problems Chronic anemia (Chronic) Sjogren's disease (Chronic) Anxiety and depression (Chronic) GERD (gastroesophageal reflux disease) (Chronic) Hypothyroidism (Chronic) Hospital Course and Treatment Imaging Results: Diagnostic Data Chest X-Ray 06/10/19 21:45 IMPRESSION: Likely COPD changes Scattered pulmonary scarring. Electronically Signed: Hayden Moser, at 5:46 EDT Tel , Service support , Dr. Baez- Cardiology Operations: None Procedures: Cardiac catheterization, Stress test Summary of Care Provided: The patient is a 68 year old F admitted 06/10/2019 due to chest pain. 1. Chest pain/abnormal troponin/CAD-transfer to [facility] for coronary revascularization. Abnormal stress echo. Patient underwent cardiac catheterization 06/11/2019 where patient was shown to have multivessel CAD and cardiology recommended transfer to tertiary facility for coronary revascularization. 2. Sjogren's disease-continue home Plaquenil regimen. Mobic on hold. 3. Hypothyroidism-continue Synthroid regimen. 4. Anxiety/depression-continue home sertraline regimen. 5. Chronic normocytic anemia-stable, trend CBC. 6. GERD-continue PPI. General: Alert, Oriented x3, Cooperative HEENT: Atraumatic, PERRLA, EOMI, Normocephalic Neck: Supple, No JVD, Negative Carotid Bruits Lungs: Clear to auscultation, Normal air movement Cardiovascular: Regular rate, Regular Rhythm, Normal S1, Normal S2, No murmurs Abdomen: Bowel Sounds Present, Soft, Non Tender, Non-Distended Extremities: No clubbing, No cyanosis, No edema, Capillary Refill Less than 3 Seconds Skin: No rashes, No breakdown Musculoskeletal: No Tenderness to Palpation of Joints or Extremities Neurological: Cranial nerves II-XII grossly intact, Neuro grossly intact Psych/Mental Status: Normal Affect, Appropriate Patient seen and examined prior to discharge. Physical assessment as noted above. Stable at time of transfer to [facility]. This patient was seen by QUINTIN Cardona under the supervision of Dr. Vallejo. - Physical Exam Vital Signs Temp Pulse Resp BP Pulse Ox 98.1 F 71 16 150/77 H 98 06/11/19 14:00 06/11/19 14:00 06/11/19 14:00 06/11/19 14:00 06/11/19 14:00 Oxygen Delivery Method Room Air Weight: 151 lb 14.376 oz Body Mass Index (BMI) 25.2 Intake and Output for Last 24 Hours 06/09/19 06/10/19 06/11/19 23:59 23:59 23:59 Intake Total 841.67 / 841.67 Balance 841.67 / 841.67 Laboratory Tests Past 24 Hrs 06/10/19 06/10/19 06/10/19 22:09 22:09 22:09 WBC 4.4 RBC 3.58 L Hgb 10.5 L Hct 32.0 L MCV 89.4 MCH 29.3 MCHC 32.8 RDW Std Deviation 39.1 RDW Coeff of Joseph 12.0 Plt Count 205 MPV 10.1 Immature Gran % (Auto) 0.200 Neut % (Auto) 65.1 Lymph % (Auto) 24.5 [place] % (Auto) 7.0 Eos % (Auto) 2.3 Baso % (Auto) 0.9 Absolute Neuts (auto) 2.9 Absolute Lymphs (auto) 1.09 Nucleated RBC % 0 Differential Comment SCANNED Reactive Lymphocytes Platelet Estimate ADEQUATE Plt Morphology Comment RBC Morphology NORM C+C PT 13.7 INR 1.1 APTT Sodium 144 Potassium 3.5 Chloride 108 H Carbon Dioxide 28.0 Anion Gap 8 BUN 22 H Creatinine 0.92 Estim Creat Clear Calc 52.66 Est GFR (MDRD) Af Amer 78 Est GFR (MDRD) Non-Af 64 BUN/Creatinine Ratio 23.8 H Glucose 112 H Calcium 8.5 Magnesium Iron TIBC Iron Saturation Ferritin Troponin I 0.082 H Triglycerides Cholesterol LDL Cholesterol VLDL Cholesterol HDL Cholesterol Vitamin B12 Folate 06/11/19 06/11/19 06/11/19 01:18 01:18 04:36 WBC RBC Hgb Hct MCV MCH MCHC RDW Std Deviation RDW Coeff of Joseph Plt Count MPV Immature Gran % (Auto) Neut % (Auto) Lymph % (Auto) [place] % (Auto) Eos % (Auto) Baso % (Auto) Absolute Neuts (auto) Absolute Lymphs (auto) Nucleated RBC % Differential Comment Reactive Lymphocytes Platelet Estimate Plt Morphology Comment RBC Morphology PT INR APTT Sodium Potassium Chloride Carbon Dioxide Anion Gap BUN Creatinine Estim Creat Clear Calc Est GFR (MDRD) Af Amer Est GFR (MDRD) Non-Af BUN/Creatinine Ratio Glucose Calcium Magnesium 2.0 Iron TIBC Iron Saturation Ferritin Troponin I 0.084 H Triglycerides Cholesterol LDL Cholesterol VLDL Cholesterol HDL Cholesterol Vitamin B12 238 Folate 06/11/19 06/11/19 06/11/19 04:36 04:36 04:36 WBC 3.9 L RBC 3.53 L Hgb 10.2 L Hct 31.3 L MCV 88.7 MCH 28.9 MCHC 32.6 RDW Std Deviation 39.2 RDW Coeff of Joseph 12.1 Plt Count 203 MPV 9.8 Immature Gran % (Auto) 0.300 Neut % (Auto) 61.2 Lymph % (Auto) 29.1 [place] % (Auto) 6.1 Eos % (Auto) 2.3 Baso % (Auto) 1.0 Absolute Neuts (auto) 2.4 Absolute Lymphs (auto) 1.14 Nucleated RBC % 0 Differential Comment SCANNED Reactive Lymphocytes RARE Platelet Estimate ADEQUATE Plt Morphology Comment LARGE RBC Morphology PT 14.0 INR 1.1 APTT 31.5 Sodium 144 Potassium 3.6 Chloride 111 H Carbon Dioxide 28.0 Anion Gap 5 BUN 17 Creatinine 0.80 Estim Creat Clear Calc 60.56 Est GFR (MDRD) Af Amer 91 Est GFR (MDRD) Non-Af 75 BUN/Creatinine Ratio 21.2 H Glucose 95 Calcium 8.4 L Magnesium Iron 90 TIBC 187 L Iron Saturation 48.1 Ferritin 152 Troponin I 0.070 H Triglycerides 57 Cholesterol 128 LDL Cholesterol 73 VLDL Cholesterol 11 HDL Cholesterol 44 Vitamin B12 Folate 18.80 Home Medications: Medications to take at Discharge Cholecalciferol (Vitamin D3) [Vitamin D3] 1,000 unit PO DAILY 12/17/13 Hydroxychloroquine [Plaquenil] 200 mg PO BIDCM 12/17/13 Meloxicam [Mobic] 15 mg PO DAILY 12/17/13 Sertraline HCl [Zoloft] 25 mg PO DAILY 12/17/13 Levothyroxine Sodium [Synthroid] 25 mcg PO DAILY 06/10/19 Omeprazole 20 mg PO DAILY 06/10/19 Ranitidine HCl [Zantac] 150 mg PO BID 06/10/19 Primary Care Physician: Clement Rivas MD [Primary Care Provider] - Disposition: Acute care Hospital Minutes spent on discharge:: 35 Patient Condition:: Stable Medical Necessity - Tobacco Use Smoking Status: Never smoker Tobacco Use: Non-smoker Meaningful Use Info Meaningful Use Diagnoses (Choose all that apply): None applicable <Jay Vallejo - Last Filed: 06/11/19 15:36> Discharge Date and Diagnosis - Secondary Discharge Diagnosis Chronic Problems Chronic anemia (Chronic) Sjogren's disease (Chronic) Anxiety and depression (Chronic) GERD (gastroesophageal reflux disease) (Chronic) Hypothyroidism (Chronic) Hospital Course and Treatment Summary of Care Provided: [] This 68-year-old female with no prior history of coronary artery/[place] came to ER with chest pain, burning type left inframammary region for about 1 to 2 months. EKG shows normal sinus rhythm with no dynamic ST-T changes. Chest x-ray no acute cardiopulmonary finding. Patient was admitted in PCU. Serial troponins were done and shows mildly elevated 0.082 [id number]. Patient was further taken for stress echo which was read as abnormal with minimal inferolateral hypokinesis. Patient was taken for heart cath, [facility] for borderline elevated troponin and abnormal stress echo. Cardiac cath shows 3 vessel coronary artery disease, 100% RCA, 100% OM1, and 100% circumflex. 60 to 70% LAD. Patient is recommended transferred to acute care for CABG. Dr. Blanton from [facility] accepted the patient. Transfer is being arranged. I discussed with the patient and updated about the plan. I think she is good operative candidate with good functional capacity. Fasting lipid profile triglyceride 57, LDL 73, HDL 44. Other comorbidities as mentioned above are stable. The patient is being transferred to [facility] for coronary revascularization. Total time spent, exact 35 minutes on discharge meds reconciliation, examination, review of imaging and blood test and discussion with the patient on follow-up instructions. Subjective: Please see progress note of today. No change change in physical exam since morning. - Physical Exam Vital Signs Temp Pulse Resp BP Pulse Ox 98.1 F 78 16 155/79 H 99 06/11/19 15:00 06/11/19 15:00 06/11/19 15:00 06/11/19 15:00 06/11/19 15:00 Oxygen Delivery Method Room Air Weight: 151 lb 14.376 oz Body Mass Index (BMI) 25.2 Intake and Output for Last 24 Hours 06/09/19 06/10/19 06/11/19 23:59 23:59 23:59 Intake Total 1030.00 / 1030.00 Balance 1030.00 / 1030.00 Laboratory Tests Past 24 Hrs 06/10/19 06/10/19 06/10/19 22:09 22:09 22:09 WBC 4.4 RBC 3.58 L Hgb 10.5 L Hct 32.0 L MCV 89.4 MCH 29.3 MCHC 32.8 RDW Std Deviation 39.1 RDW Coeff of Joseph 12.0 Plt Count 205 MPV 10.1 Immature Gran % (Auto) 0.200 Neut % (Auto) 65.1 Lymph % (Auto) 24.5 [place] % (Auto) 7.0 Eos % (Auto) 2.3 Baso % (Auto) 0.9 Absolute Neuts (auto) 2.9 Absolute Lymphs (auto) 1.09 Nucleated RBC % 0 Differential Comment SCANNED Reactive Lymphocytes Platelet Estimate ADEQUATE Plt Morphology Comment RBC Morphology NORM C+C PT 13.7 INR 1.1 APTT Sodium 144 Potassium 3.5 Chloride 108 H Carbon Dioxide 28.0 Anion Gap 8 BUN 22 H Creatinine 0.92 Estim Creat Clear Calc 52.66 Est GFR (MDRD) Af Amer 78 Est GFR (MDRD) Non-Af 64 BUN/Creatinine Ratio 23.8 H Glucose 112 H Calcium 8.5 Magnesium Iron TIBC Iron Saturation Ferritin Troponin I 0.082 H Triglycerides Cholesterol LDL Cholesterol VLDL Cholesterol HDL Cholesterol Vitamin B12 Folate 06/11/19 06/11/19 06/11/19 01:18 01:18 04:36 WBC RBC Hgb Hct MCV MCH MCHC RDW Std Deviation RDW Coeff of Joseph Plt Count MPV Immature Gran % (Auto) Neut % (Auto) Lymph % (Auto) [place] % (Auto) Eos % (Auto) Baso % (Auto) Absolute Neuts (auto) Absolute Lymphs (auto) Nucleated RBC % Differential Comment Reactive Lymphocytes Platelet Estimate Plt Morphology Comment RBC Morphology PT INR APTT Sodium Potassium Chloride Carbon Dioxide Anion Gap BUN Creatinine Estim Creat Clear Calc Est GFR (MDRD) Af Amer Est GFR (MDRD) Non-Af BUN/Creatinine Ratio Glucose Calcium Magnesium 2.0 Iron TIBC Iron Saturation Ferritin Troponin I 0.084 H Triglycerides Cholesterol LDL Cholesterol VLDL Cholesterol HDL Cholesterol Vitamin B12 238 Folate 06/11/19 06/11/19 06/11/19 04:36 04:36 04:36 WBC 3.9 L RBC 3.53 L Hgb 10.2 L Hct 31.3 L MCV 88.7 MCH 28.9 MCHC 32.6 RDW Std Deviation 39.2 RDW Coeff of Joseph 12.1 Plt Count 203 MPV 9.8 Immature Gran % (Auto) 0.300 Neut % (Auto) 61.2 Lymph % (Auto) 29.1 [place] % (Auto) 6.1 Eos % (Auto) 2.3 Baso % (Auto) 1.0 Absolute Neuts (auto) 2.4 Absolute Lymphs (auto) 1.14 Nucleated RBC % 0 Differential Comment SCANNED Reactive Lymphocytes RARE Platelet Estimate ADEQUATE Plt Morphology Comment LARGE RBC Morphology PT 14.0 INR 1.1 APTT 31.5 Sodium 144 Potassium 3.6 Chloride 111 H Carbon Dioxide 28.0 Anion Gap 5 BUN 17 Creatinine 0.80 Estim Creat Clear Calc 60.56 Est GFR (MDRD) Af Amer 91 Est GFR (MDRD) Non-Af 75 BUN/Creatinine Ratio 21.2 H Glucose 95 Calcium 8.4 L Magnesium Iron 90 TIBC 187 L Iron Saturation 48.1 Ferritin 152 Troponin I 0.070 H Triglycerides 57 Cholesterol 128 LDL Cholesterol 73 VLDL Cholesterol 11 HDL Cholesterol 44 Vitamin B12 Folate 18.80
--- NOTE | 2019-06-11 16:09 | CHAPLAIN ---
Type of Pastoral Visit _x__ Initial Visit ___ Follow-up Visit ___ On-call Visit ___ General Patient Visit ___ Spiritual Assessment ___ Family Conference ___ Bereavement ___ Rapid Response ___ Code Blue ___ Other (describe below) Pastoral Care Referral From _x__ Patient ___ Family ___ Nurse ___ Physician ___ Display Mechanic ___ Straightedge Man ___ Other (describe below) Sacrament/Intervention _x__ Active listening ___ Anointing ___ Anabaptist ___ Bereavement ___ Communion _x__ Sharon exploration ___ ___ Life review _x__ Prayer ___ Reconciliation ___ Sacrament of Sick _x__ Supportive presence ___ Wedding ___ Other (describe below) Pastoral Comments patient just learned that she needs heart surgery and will be transferred out; pt seeks support spiritually and emotionally; pt states that she is a believer but not formally connected to a episcopal
--- NOTE | 2019-06-11 16:59 | CL.D_ITS ---
Patient Name: YANNI BURROUGHS Study Date: 06/11/2019 Performing: Hattie Baez MD Ht: 65 inches 165 cm : 1950 Wt: 152.3 lbs 69 kg Age: 68 Gender: female BSA: 1.76 PROCEDURE(S) PERFORMED SY40-XGM/COR/LV CLINICAL PROFILE AND INDICATIONS Indications: ACS <= 24 hrs Heart Failure: None Stress/Imaging Stress/Image Study Performed: No CAD Presentations: Unstable angina. CONCLUSIONS Multivessel CAD as decribed. Preserved EF. No significant or MR RECOMMENDATIONS Surgery consult for coronary revascularization DESCRIPTION OF PROCEDURE The patient arrived to the procedure lab. The risks and benefits of the procedure as well as a full d escription of our services here and current unavailability of surgical backup were fully explained to the patient and/or their significant other prior to the catheterization. The Timeout was completed, verifying the correct patient and procedure. The patient's procedural site was prepped and draped in the usual fashion. Local anesthetic was given subcutaneously to right radial region with Lidocaine 2% . Using a modified Seldinger technique, arterial access was obtained via the right radial artery, a 6 Fr sheath was inserted. Left Coronary Artery selective angiography was performed in multiple views u sing a 5 Fr. JL3.5 catheter. Left Ventriculography was performed in HARVEY projection using a 5 Fr. JR 4 . LV to AO pullback pressures were then recorded. Right Coronary Artery selective angiography was the n performed in multiple views using a 5 Fr. JR 4 catheter.The arterial sheath was pulled and a TR Band was applied for hemostasis w/ 16ml air CORONARY ANGIOGRAPHY DOMINANCE: Right Dominant LEFT HEART ASSESSMENT Left Ventricular Ejection Fraction: by LV Gram 60 % Inferior Basal Hypokinesis - Moderate LEFT MAIN: Mild luminal irregularities LEFT ANTERIOR DESCENDING ARTERY: MID LAD: 60-70 % Stenosis, 60 % Stenosis CIRCUMFLEX ARTERY: PROX CIRC: is occluded. There is collateral filling of a medium sized OM1 and AV groove Circ. RIGHT CORONARY ARTERY: is occluded. L to R collaterals fill the RPL system. VALVE FINDINGS: No Aortic Valve Stenosis No Mitral Insufficency COMPLICATIONS No Complications PROCEDURE MEDICATIONS Versed 1 mg IV Fentanyl 50 mcg IV Oxygen: 2 L/min via nasal cannula Heparin given IA 06/11/2019 12:23:07 Verapamil 2.5mg, Ntg 100mcgs, 3000 units of Heparin given IA 06/11/2019 12:23:07 SUMMARY OF HEMODYNAMIC DATA Time AIR REST ECG 10:46:05 AO 167/78 (114) SA 12:24:35 LV 182/0, 23 12:32:46 LV 180/-3, 21 12:32:52 LV 176/3, 22 12:34:20 LVp 166/11, 23 12:34:28 AOp 188/87 (129) 12:34:33 Signed By Hattie Baez MD On 06/11/2019 4:58:47 PM Hattie Baez MD
--- NOTE | 2019-06-11 19:03 | NURSING ---
This RN called report to EVER Latham at [facility].
== END 2019-06-11 19:48 | disposition short-term general hospital (02) ==
LOC: ED 21:40 → PCU 06-11
PROVIDERS: Admitting Provider Family Medicine; Emergency Provider Emergency Medicine; Family Provider Family Medicine; PCP Family Medicine; Visit Provider Internal Medicine
DX: R07.89 Other chest pain (principal); M35.00 Sjogren syndrome, unspecified; F41.9 Anxiety disorder, unspecified; F32.9 Major depressive disorder, single episode, unspecified; K21.9 Gastro-esophageal reflux disease without esophagitis; E03.9 Hypothyroidism, unspecified; D64.9 Anemia, unspecified; Z79.899 Other long term (current) drug therapy
CPT/HCPCS: 36415; 71045; 80048; 80061; 82607; 82728; 82746; 83540; 83550; 83735; 84484; 85025; 85610; 85730; 93005; 93458; 96360; 96361; 99152; 99153; 99218; 99285; J7030; J7040; Q9967; C1769; C1894; G0378

== ENCOUNTER → 2019-08-04 08:52 | Outpatient (CLI) | payer MEDICARE, OTHER, SELFPAY ==
[2019-07-27 14:42] VITALS: BMI 23.9
--- NOTE | 2019-08-04 09:12 | PCM.CR.HP2 ---
CR - History & Physical - General Arrival date:: 08/04/19 Arrival time:: 08:45 Date of Referral:: 06/15/19 Date of CR Evaluation:: 08/04/19 Referring Physician: DR. BAEZ Primary Diagnosis: S/P CABG - History of Present Cardiac Event Onset Date: Enter Onset Date of cardiac illnesses in Comment field below Current stable Angina Pectoris:: No Acute Myocardial Infarction within 12 months:: No Coronary Artery Bypass Graft:: Yes Heart valve replacement or repair:: No PTCA or coronary stenting:: No Heart or Heart-Lung Transplant:: No Heart Failure EF <35%:: No Type of Symptoms:: INDIGESTION, ARM PAIN BOTH ARMS Were there any complications?: NONE - Medications Home Medications: Ambulatory Orders Medication Instructions Recorded Cholecalciferol (Vitamin D3) 1,000 unit PO DAILY 12/17/13 [Vitamin D3] Hydroxychloroquine [Plaquenil] 200 mg PO BIDCM 12/17/13 Sertraline HCl [Zoloft] 25 mg PO DAILY 12/17/13 Levothyroxine Sodium [Synthroid] 25 mcg PO DAILY 06/10/19 acetaminophen 325 mg tablet 650 mg PO Q6H PRN tab 07/21/19 aspirin 81 mg chewable tablet 81 mg PO DAILY 07/21/19 omeprazole 40 mg capsule,delayed 40 mg PO DAILY 07/21/19 release ascorbate calcium (vitamin C) 500 500 mg PO DAILY #30 tab 07/27/19 mg tablet atorvastatin 40 mg tablet 40 mg PO QHS #30 tab 07/27/19 metoprolol tartrate 25 mg tablet 25 mg PO BID #60 tab 07/27/19 multivit,tx with iron 27 1 tab PO DAILY #30 tab 07/27/19 fo-[id number]-blvrm acid 0.4 mg-minerals tablet - Allergies Allergies/Adverse Reactions: Allergies doxycycline Adverse Reaction (Verified 07/27/19 14:43) Other - Sleep Disorder Evaluation Hx of Sleep Apnea: No Do you snore loudly (louder than talking or can be heard through closed doors)?: No Do you often feel tired/ fatigued/ sleepy during daytime?: No Has anyone observed you stop breathing during sleep?: No History of Hypertension (for STOP score): No STOP Results: Negative Advanced Directives - Advanced Directives Power of Cans Vacuum Tester: No - PT ENCOURAGED TO OBTAIN ADV DIRECTIVE PAPERS FROM MEDICAL RECORDS. 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 GERD (gastroesophageal reflux disease) K21.9 Hypothyroidism E03.9 IBS (irritable bowel syndrome) K58.9 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 Left click = Reports (Cochran) Review of Present Symptoms: Reports: Operative Discomfort - PT STATES HER INCISION IS STILL SOMEWHAT SORE, Wound Healing - EDGES WELL APPROXIMATED WITHOUT REDNESS OR EDEMA, Fatigue - IM DOING BETTER WITH FATIGUE, I USE TO TAKE A NAP EVERY DAY BUT NOT ANYMORE, Appetite - Normal, Appetite - Special Diet - CARDIAC, Sleep - Normal. Denies: Shortness of Breath at Rest, Shortness of Breath with Exertion, PVD, Angina, Dizziness/Lightheadedness, Heart Arrhythmia/Irregularities - Pain Is Patient Pain Free?: Yes Risk Factor Assessment - Chief Complaint Chief Complaint: CURRENT S/P CABG PATIENT WHO PRESENTS TODAY FOR CR EVALUATION - Vital Signs Temperature: 98.6 F Respiratory Rate: 12 Pulse Ox: 98 Blood Pressure: 110/60 Nailbeds:: PINK - Pulse Pulse Rate: 88 Pulse Rhythm: Regular - Stress Stress: Recent, Long-standing - PT STATES TWO ADULT CHILDREN RECENTLY LIVED WITH HER AND NO LONGER AT HOME. PT/ OWN FAMILY BUSINESS, Home/Family - Blood Cholesterol/Lipids Total Cholesterol (mg/dL) Goal = less than 200 mg/dL: 128 HDL Cholesterol (mg/dL) Goal = less than 40 mg/dL: 44 LDL Cholesterol (mg/dL) Goal = less than 70 mg/dL: 73 Triglycerides (mg/dL) Goal = less than 150 mg/dL: 57 - Diabetes Nutrition Referral for Diabetes: No - Obesity Height: 5 ft 5 in Weight:: 144 lb Weight in Pounds: 144.0 lbs Weight Source: Stated by Patient Body Mass Index (BMI): 23.9 Nutritional Referral for Obesity: No - Physical Inactivity Physical Inactivity: Recreational activity - Risk Stratification Risk Guidelines: Lowest Risk: Risk Factor for Smoking - NEVER SMOKED, Risk Factor for Dyslipidemia, Risk Factor for Diabetes, Risk Factor for Obesity - BMI 23.9, Risk Factor for Hypertension - NO HTN HX, Risk Factor for Sedentary Lifestyle - PT WALKS EVERY DAY, Risk Factor for Depression - PT DENIES DEPRESSION - For Smoking Smoking Risk Guidelines: Smoking Low Risk: None or quit greater than 6 months ago. Smoking Moderate Risk: Smoker or quit 6 months or less ago. Smoking High Risk: Smoker - For Dyslipidemia Dyslipidemia Risk Guidelines: Low Risk: Moderate Risk: High Risk: 15-25% fat 25.1-29% fat >/= 30% fat. <7% sat fat 7-9% sat fat >9% sat fat. <150 mg chol 150-299 mg chol >/= 300 mg chol. LDL <100 LDL 100-129 LDL >/= 130. Chol/HDL ratio <5.0 Chol/HDL ratio 5.0-6.0 Chol/HDL ratio >6.0. Triglycerides <100 Triglycerides 100-149 Triglycerides >/= 150 - For Diabetes Mellitus Diabetes Risk Guidelines: Diabetes Low Risk: HgA1c <6.5% and/or FBG <120. Diabetes Moderate Risk: HgA1c 6.6-7.9% and/or FBG 120-180. Diabetes High Risk: HgA1c >/= 8% and/or FBG >180 - For Obesity/Overweight Obesity/Overweight Risk Guidelines: Obesity Low Risk: BMI <25.0. Obesity Moderate Risk: BMI 25-29.9. Obesity High Risk: BMI >/= 30.0 - For Hypertension Hypertension Risk Guidelines: Hypertension Low Risk: Systolic <120 and Diastolic <80. Hypertension Moderate Risk: Systolic 120-139 and Diastolic 80-89. Hypertension High Risk: Systolic >/= 140 and Diastolic >/= 90 - For Sedentary Lifestyle Sedentary Lifestyle Risk Guidelines: Sedentary Lifestyle Low Risk: >/= 1,500 kcal/week. Sedentary Lifestyle Moderate Risk: 700-1,499 kcal/week. Sedentary Lifestyle High Risk: < 700 kcal/week - For Depression Depression Risk Guidelines: Depression Low Risk: Not clinically depressed. Depression Moderate Risk: Mildly depressed. Depression High Risk: Clinically depressed - Family History Family History: Family History (Last Reviewed 07/27/19 @ 15:19 by Juan Baez MD) Mother CVA (cerebral vascular accident) Heart disease Father Diabetes CHF (congestive heart failure) Sister Sjogren's disease Hypertension Sister Breast cancer Motivation - Motivation to Participate On a scale of 1 to 10, how prepared are you to commit to attending program?: 10 What do you see as barriers to successfully being able to complete the program?: NONE What do you see as the benefits of succesfully completing the program? In other words, what do you hope to get out of participating in the program?: IMPROVED ENEGRY Are there issues you are dealing with that will interfere with completing the program?: NONE Do you have a spouse or signficant other, family or friends who will help support you to complete the program?: SPOUSE
--- NOTE | 2019-08-04 09:12 | PCM.CR.ITP ---
General Information - General Information Admitting Diagnosis: S/P CABG - Education/Goals Barriers to Learning: None Individual Counseling: Initial Assessment: Stress - FAMILY,CHILDREN, FAMILY BUSINESS, Family History of Heart Disease (under 65 years) Cardiac Rehabilitation Goals: 1. Maintain the individual as the primary focus of care. 2. To improve the patient's quality of life. 3. Identification of cardiac risk factors and provide cardiac risk factor management. 4. Enhance the psychosocial status of the patient. 5. Reconditioning enough to allow the patient to resume customary activities. 6. Control symptoms of cardiac disease Scale for measuring improvement of personal goals: Enter appropriate number in Comments. 2 = Unchanged. 3 = Slightly Better. 4 = Moderate Improvement. 5 = Met my Goal Personal Goals: Initial Assessment: Improve management of stress and emotions, Improve energy level, Participate in home exercise program, Get back to work, or to resume activities faster, Improve knowledge of cardiac disease, Improve muscle strength and endurance, Improve diet and eating habits (eat healthier) Exercise - Initial Assessment - Visit Date of Eval: 08/04/19 - Stages of Change Stages of Change:: Action - Physician Prescribed Exercise Modalities: Treadmill, Biodyne, Airdyne, NuStep, SciFit Frequency (days/week): 3x/week for 12 weeks [36 sessions] Intensity: 60-80% age predicted maximum heart rate reserve Target Heart Rate:: 99-129 - Hypertension Do any of the following apply?: No Resting Blood Pressure:: 110/60 - Intervention Home Exercise/Activity Goal:: Sitting Time <3 hrs/day - Education Goals:: Warm-up, RPE GABBI Scale, S/S, Safe Exercise, Self-Monitoring - Exercise Program Goals Exercise Program Goals: Aerobic Activity >30 min Nutrition - Initial Assessment - Program Goals Nutrition Program Goals: LDL <70. Total Cholesterol <200. HDL >45. Triglycerides <150. HgbA1C <7%. BMI <25 - Stages of Change Stages of Change:: Action - Lipids Total Cholesterol (mg/dL) Goal = less than 200 mg/dL: 128 HDL Cholesterol (mg/dL) Goal = less than 45 mg/dL: 44 LDL Cholesterol (mg/dL) Goal = less than 70 mg/dL: 73 Triglycerides (mg/dL) Goal = less than 150 mg/dL: 57 Lipid Medication: ATORVASTATIN - Diabetes Diabetes:: No - Weight Management Height: 5 ft 5 in Weight:: 144 lb - Intervention Referral to dietitian:: No Referral to Diabetic Clinic:: No Will attend diet classes:: Yes - CR CLASSES - Education Gave educational materials for:: Signs & symptoms of hypoglycemia, Signs & symptoms of hyperglycemia, Relate diabetes to coronary artery disease, Healthy eating - INFORMED OF [facility] ON-LINE EDUCATION MATERIAL Tobacco - Initial Assessment - Program Goals Tobacco Program Goals: Complete smoking cessation. Attend education classes. Improve Knowledge Test score - Stage of Change Stages of Change:: Action - Learning Barriers Learning Barriers: Ready to Learn - Family Support Do you have family support?: Yes - SPOUSE AND SISTERS - Tobacco Use Tobacco Use: Non-smoker - Intervention Smoking Cessation Referral:: No Individual Education/Counseling:: No Education Schedule Given:: Yes - INFORMED OF CR CLASSES WELL ON-LINE MATERIAL Psychosocial - Initial Assess - Target Goals Target Goals: Assess presence or absence of depression. Using a valid screening tool, maximizes coping skills. Positive support system - Stages of Change Stages of Change:: Action - Psychosocial Test Tool Used:: HANDS Depression Questionnaire - Intervention PS - Interventions: Yes Attend Stress Management Classes - CR CLASSES, Yes Uses Stress Management Skills - CR CLASSES, No Referral to Mental Health, No Referral to [facility] Case Management, No Referral to Physician - Education Gave educational materials for:: Coping techniques, Signs & symptoms of depression, Stress management, Relaxation techniques - Patient/Program Goal Preventative Medication(s):: Aspirin, Beta shaye, Statin/lipid - Assistive Devices Assistive Devices:: None Fall Risk Assessed:: No Patient Health Questionnaire Initial Assessment 1. Little interest or pleasure in doing things: Not at all 2. Feeling down, depressed, or hopeless: Not at all 3. Trouble falling or staying asleep, or sleeping too much: Not at all 4. Feeling tired or having little energy: Several days 5. Poor appetite or overeating: Several days 6. Feeling bad about yourself -- or that you are a failure or have let yourself or your family down: Not at all 7. Trouble concentrating on things, such as reading the newspaper or watching television: Not at all 8. Moving or speaking so slowly that other people could have noticed. Or the opposite - being so fidgety or restless that you have been moving around a lot more than usual: Not at all 9. Thoughts that you would be better off , or of hurting yourself in some way: Not at all How difficult have these problems made it for you to do your work, take care of things at home, or get along with other people?: Somewhat difficult Total Score: 2 KADEN-Q SV Test - Statements CAD is a disease of the arteries in the heart: False Examples of risk factors for heart disease: True Angina is chest pain or discomfort: True The benefits of resistance training include: True Eating more meat and dairy products: True Anti-platelet medications such as aspirin are important: True The only effective way to manage stress: True An exercise warm-up slowly increases heart rate: True Prepared, processed foods usually have high sodium: True Depression is common after a heart attack: True The statin medications lower cholesterol: True To control blood pressure, lower the amount of sodium: True If someone gets chest discomfort during walking: False Transfats are partially hydrogenated vegetable oils: True Sleep apnea that is not treated increases the risk: True To control cholesterol, one should become a vegetarian: False Someone knows if he/she is exercising at the right level: True Diabetes cannot be prevented with exercise & health eating: True Stress is a large risk for heart attack: True A diet that can help lower blood pressure is rich in: True - Total Score Total Correct Responses: 16 Self-Efficacy Initial Assessment We would like to know how confident you are in doing certain activities. Please select your confidence level for:: Select your confidence level for the following using the scale 1-10 where 1 is not at all confident and 10 is totally confident. Your score is the average of all 6 responses. Fatigue: How confident are you that you can keep the fatigue caused by your disease from interfering with the things you want to do? Select Number: 10 Physical Discomfort or Pain: How confident are you that you can keep the physical discomfort or pain of your disease from interfering with the things you want to do? Select Number: 10 Emotional Distress: How confident are you that you can keep the emotional distress caused by your disease from interfering with the things you want to do? Select Number: 10 Other Symptoms or Health Problems: How confident are you that you can keep other symptoms or health problems from interfering with the things you want to do? Select Number: 10 Different Tasks and Activities: How confident are you that you can do the different tasks and activities needed to manage your health condition so as to reduce your need to see a doctor? Select Number: 9 Medication: How confident are you that you can do things other than just taking medication to reduce how much your illness affects your everyday life? Select Number: 10 Total Score:: 9 Nutrition Survey - Nutrition Survey Instructions Scoring Instructions: Scoring is as follows: Yes = 1 points. No = 0 point. Patient score that is >/=12 is considered to be at potential nutritional risk and could benefit from a referral to a registered dietitian. - Nutrition Survey Initial Have you lost >10 lbs over the past 2 months without trying?: Yes Are you following a special diet at home for diabetes, low fat, or low salt?: Yes Are you interested in meeting with a dietitian for help understanding your diet?: Yes Do you eat less than 3 meals a day?: No Do you eat fatty meats (medellin, sausage, ribs, etc), fried foods, desserts, large amounts of salad dressings, margarine, butter, or cheese most days?: No Do you have food allergies? [Enter types in comment field]: No Do you eat in restaurants more than 3 times a week?: No Do you season food with salt, seasoning salt, or garlic salt?: No Do you used canned, boxed, frozen meals, or soups, seasoning packets?: Yes Total Score:: 4
[2019-08-04 09:41] VITALS: BP 110/60; PULSE 88; RESP 12; TEMP 37; O2SAT 98; BMI 23.9
[2019-08-04 10:02] VITALS: BP 110/60
== END ==
PROVIDERS: Family Provider Family Medicine; PCP Family Medicine; Referring Provider Specialist; Visit Provider Specialist
DX: I25.10 Atherosclerotic heart disease of native coronary artery without angina pectoris (principal); Z95.1 Presence of aortocoronary bypass graft

== ENCOUNTER 2019-08-26 13:00 | Outpatient (RCR) | payer MEDICARE, OTHER, SELFPAY ==
[2019-08-04 09:41] VITALS: BMI 23.9
== END 2019-08-29 23:59 ==
LOC: CR 13:00
PROVIDERS: Family Provider Family Medicine; PCP Family Medicine; Referring Provider Specialist; Visit Provider Specialist
DX: Z95.1 Presence of aortocoronary bypass graft (principal); I25.10 Atherosclerotic heart disease of native coronary artery without angina pectoris
CPT/HCPCS: 93798

== ENCOUNTER 2019-09-28 13:00 | Outpatient (RCR) | payer MEDICARE, OTHER, SELFPAY ==
[2019-08-04 09:41] VITALS: BMI 23.9
--- NOTE | 2019-09-02 06:34 | CR.ITP_ITS ---
Exercise - 30-day Assessment - Visit Date of Eval: 09/02/19 Session #:: 9 - started CR on 08/10/2019 - Stages of Change Stages of Change:: Action - Physician Prescribed Exercise Modalities: Treadmill, Airdyne, NuStep Frequency (days/week): 3 Duration (Minutes):: 30-45 Intensity: 60-80% age predicted maximum heart rate reserve METs - Progression: 0.5-1.0 MET, RPE 11-14 WEEK: 5.1 Target Heart Rate:: 99-129 w/max HR 106 - Hypertension Resting Blood Pressure:: 124/62 Peak Exercise Blood Pressure:: 128/64 Medication Changes:: No - Intervention Home Exercise/Activity Goal:: Moderate Exercise 30 min/day x 5 days/wk - Education Goals:: Warm-up, RPE GABBI Scale, S/S, Safe Exercise, Self-Monitoring - Exercise Program Goals Exercise Program Goals: Aerobic Activity >30 min Nutrition - 30-Day Assessment - Program Goals Nutrition Program Goals: LDL <70. Total Cholesterol <200. HDL >45. Triglycerides <150. HgbA1C <7%. BMI <25 - Visit Date of Eval: 09/02/19 - Stages of Change Stages of Change:: Action - Lipids Has the patient seen the dietitian?: No - Diabetes Diabetes:: No Insulin: No Non-Insulin Dependent?: No - Weight Management Weight:: 145 lb - stable +/- 1# - Intervention Referral to dietitian:: No Referral to Diabetic Clinic:: No Will attend diet classes:: Yes - Education Attended class for:: Healthy eating Tobacco - Initial Assessment - Program Goals Tobacco Program Goals: Complete smoking cessation. Attend education classes. Improve Knowledge Test score - Learning Barriers Learning Barriers: Ready to Learn Tobacco - 30-Day Assessment - Program Goals Tobacco Program Goals: Complete smoking cessation. Attend education classes. Improve Knowledge Test score - Stage of Change Stages of Change:: Action - Learning Barriers Learning Barriers: Participates in education - Family Support Do you have family support?: Yes - Tobacco Use Tobacco Use: Non-smoker Do you use smokeless tobacco?: No - Intervention Smoking Cessation Referral:: No Individual Education/Counseling:: No Education Schedule Given:: Yes - Education Attended class for:: Treating Heart Disease, How The Heart Works, What it means to have Heart Disease, How Coronary Artery Disease is Diagnosed Psychosocial - Initial Assess - Target Goals Target Goals: Assess presence or absence of depression. Using a valid screening tool, maximizes coping skills. Positive support system - Psychosocial Test Tool Used:: HANDS Depression Questionnaire - Assistive Devices Fall Risk Assessed:: No Psychosocial - 30-Day Assess - Target Goals Target Goals: Assess presence or absence of depression. Using a valid screening tool, maximizes coping skills. Positive support system - Stages of Change Stages of Change:: Action - Psychosocial Test Tool Used:: HANDS Depression Questionnaire - Intervention PS - Interventions: Yes Attend Stress Management Classes, No Referral to Mental Health, No Referral to [facility] Case Management, No Referral to Physician, No Uses Stress Management Skills - Education Attended classes for:: Coping techniques, Signs & symptoms of depression, Stress management, Relaxation techniques - Patient/Program Goal Preventative Medication(s):: Aspirin, TOMAS inhibitor, Clopidogrel, Beta shaye, Statin/lipid - Patient reports taking medications as prescribed. - Assistive Devices Assistive Devices:: None Fall Risk Assessed:: Yes Patient Health Questionnaire 30-Day Re-eval Assessment 1. Little interest or pleasure in doing things: Several days 2. Feeling down, depressed, or hopeless: Not at all 3. Trouble falling or staying asleep, or sleeping too much: Not at all 4. Feeling tired or having little energy: Several days 5. Poor appetite or overeating: Not at all 6. Feeling bad about yourself -- or that you are a failure or have let yourself or your family down: Not at all 7. Trouble concentrating on things, such as reading the newspaper or watching television: Not at all 8. Moving or speaking so slowly that other people could have noticed. Or the opposite - being so fidgety or restless that you have been moving around a lot more than usual: Not at all 9. Thoughts that you would be better off , or of hurting yourself in some way: Not at all Total Score: 2 Self-Efficacy 30-Day Re-eval Assessment We would like to know how confident you are in doing certain activities. Please select your confidence level for:: Select your confidence level for the following using the scale 1-10 where 1 is not at all confident and 10 is totally confident. Your score is the average of all 6 responses. Fatigue: How confident are you that you can keep the fatigue caused by your disease from interfering with the things you want to do? Select Number: 8 Physical Discomfort or Pain: How confident are you that you can keep the physical discomfort or pain of your disease from interfering with the things you want to do? Select Number: 9 Emotional Distress: How confident are you that you can keep the emotional distress caused by your disease from interfering with the things you want to do? Select Number: 9 Other Symptoms or Health Problems: How confident are you that you can keep other symptoms or health problems from interfering with the things you want to do? Select Number: 10 Different Tasks and Activities: How confident are you that you can do the different tasks and activities needed to manage your health condition so as to r educe your need to see a doctor? Select Number: 10 Medication: How confident are you that you can do things other than just taking medication to reduce how much your illness affects your everyday life? Select Number: 10 Total Score:: 9
[2019-09-02 06:38] VITALS: BP 124/62; BP 128/64
== END 2019-09-29 23:59 ==
LOC: CR 13:00
PROVIDERS: Family Provider Family Medicine; PCP Family Medicine; Referring Provider Specialist; Visit Provider Specialist
DX: I25.10 Atherosclerotic heart disease of native coronary artery without angina pectoris (principal); Z95.1 Presence of aortocoronary bypass graft
CPT/HCPCS: 93798

== ENCOUNTER 2019-10-30 13:00 | Outpatient (RCR) | payer MEDICARE, OTHER, SELFPAY ==
[2019-08-04 09:41] VITALS: BMI 23.9
[2019-09-30 00:50] VITALS: BP 124/62; BP 128/64
--- NOTE | 2019-10-02 09:03 | CR.ITP_ITS ---
General Information - General Information Admitting Diagnosis: S/P CABG - Education/Goals Barriers to Learning: None Cardiac Rehabilitation Goals: 1. Maintain the individual as the primary focus of care. 2. To improve the patient's quality of life. 3. Identification of cardiac risk factors and provide cardiac risk factor management. 4. Enhance the psychosocial status of the patient. 5. Reconditioning enough to allow the patient to resume customary activities. 6. Control symptoms of cardiac disease Scale for measuring improvement of personal goals: Enter appropriate number in Comments. 2 = Unchanged. 3 = Slightly Better. 4 = Moderate Improvement. 5 = Met my Goal Exercise - 60-Day Assessment - Visit Date of Eval: 10/02/19 Session #:: 20 - Stages of Change Stages of Change:: Action - Physician Prescribed Exercise Modalities: Treadmill, Airdyne, NuStep Frequency (days/week): 3 Duration (Minutes):: 30-45 Intensity: 60-80% age predicted maximum heart rate reserve METs - Progression: 0.5-1.0 MET, RPE 11-14 WEEK: 6.3 Target Heart Rate:: 99-129 Max HR 101 - Hypertension Resting Blood Pressure:: 120/70 Peak Exercise Blood Pressure:: 140/60 - Intervention Home Exercise/Activity Goal:: Moderate Exercise 30 min/day x 5 days/wk - Education Goals:: Warm-up, RPE GABBI Scale, S/S, Safe Exercise, Self-Monitoring - Exercise Program Goals Exercise Program Goals: Aerobic Activity >30 min, B/P <130/80 Nutrition - 60-Day Assessment - Program Goals Nutrition Program Goals: LDL <70. Total Cholesterol <200. HDL >45. Triglycerides <150. HgbA1C <7%. BMI <25 - Visit Date of Eval: 10/02/19 - Stages of Change Stages of Change:: Action - Diabetes Diabetes:: No - Weight Management Weight:: 64.41 kg - Intervention Referral to dietitian:: No Referral to Diabetic Clinic:: No Will attend diet classes:: Yes - Education Attended class for:: Signs & symptoms of hypoglycemia, Signs & symptoms of hyperglycemia, Relate diabetes to coronary artery disease, Healthy eating Tobacco - Initial Assessment - Program Goals Tobacco Program Goals: Complete smoking cessation. Attend education classes. Improve Knowledge Test score - Learning Barriers Learning Barriers: Ready to Learn Tobacco - 60-Day Assessment - Program Goals Tobacco Program Goals: Complete smoking cessation. Attend education classes. Improve Knowledge Test score - Stage of Change Stages of Change:: Action - Learning Barriers Learning Barriers: Participates in education - Family Support Do you have family support?: Yes - Tobacco Use Tobacco Use: Non-smoker Do you use smokeless tobacco?: No - Intervention Smoking Cessation Referral:: No Individual Education/Counseling:: No Education Schedule Given:: Yes - Education Attended class for:: Treating Heart Disease, How The Heart Works, What it means to have Heart Disease, How Coronary Artery Disease is Diagnosed, Heart Procedures, What Heart Medications Do, Risk Factors & Modifications, Living an Active Life, Nutrition, Emotions & Heart Disease, Stress Management & Relaxation, Sleep Disorders & Heart Disease Psychosocial - Initial Assess - Target Goals Target Goals: Assess presence or absence of depression. Using a valid screening tool, maximizes coping skills. Positive support system - Psychosocial Test Tool Used:: HANDS Depression Questionnaire - Assistive Devices Fall Risk Assessed:: No Psychosocial - 60-Day Assess - Target Goals Target Goals: Assess presence or absence of depression. Using a valid screening tool, maximizes coping skills. Positive support system - Stages of Change Stages of Change:: Action - Psychosocial Test Tool Used:: HANDS Depression Questionnaire - Intervention PS - Interventions: Yes Attend Stress Management Classes, Yes Uses Stress Management Skills, No Referral to Mental Health, No Referral to [facility] Case Management, No Referral to Physician - Education Attended classes for:: Coping techniques, Signs & symptoms of depression, Stress management, Relaxation techniques - Assistive Devices Assistive Devices:: None Fall Risk Assessed:: Yes Patient Health Questionnaire 60-Day Re-eval Assessment 1. Little interest or pleasure in doing things: Several days 2. Feeling down, depressed, or hopeless: Not at all 3. Trouble falling or staying asleep, or sleeping too much: Not at all 4. Feeling tired or having little energy: Several days 5. Poor appetite or overeating: Not at all 6. Feeling bad about yourself -- or that you are a failure or have let yourself or your family down: Not at all 7. Trouble concentrating on things, such as reading the newspaper or watching television: Not at all 8. Moving or speaking so slowly that other people could have noticed. Or the opposite - being so fidgety or restless that you have been moving around a lot more than usual: Not at all 9. Thoughts that you would be better off , or of hurting yourself in some way: Not at all How difficult have these problems made it for you to do your work, take care of things at home, or get along with other people?: Not difficult at all Total Score: 2 Self-Efficacy 60-Day Re-eval Assessment We would like to know how confident you are in doing certain activities. Please select your confidence level for:: Select your confidence level for the following using the scale 1-10 where 1 is not at all confident and 10 is totally confident. Your score is the average of all 6 responses. Fatigue: How confident are you that you can keep the fatigue caused by your disease from interfering with the things you want to do? Select Number: 8 Physical Discomfort or Pain: How confident are you that you can keep the physical discomfort or pain of your disease from interfering with the things you want to do? Select Number: 9 Emotional Distress: How confident are you that you can keep the emotional distress caused by your disease from interfering with the things you want to do? Select Number: 9 Other Symptoms or Health Problems: How confident are you that you can keep other symptoms or health problems from interfering with the things you want to do? Select Number: 10 Different Tasks and Activities: How confident are you that you can do the different tasks and activities needed to manage your health condition so as to reduce your need to see a doctor? Select Number: 10 Medication: How confident are you that you can do things other than just taking medication to reduce how much your illness affects your everyday life? Select Number: 10 Total Score:: 9
[2019-10-02 09:09] VITALS: BP 120/70; BP 140/60
== END 2019-10-30 23:59 ==
LOC: CR 13:00
PROVIDERS: Family Provider Family Medicine; PCP Family Medicine; Referring Provider Specialist; Visit Provider Specialist
DX: I25.10 Atherosclerotic heart disease of native coronary artery without angina pectoris (principal); Z95.1 Presence of aortocoronary bypass graft
CPT/HCPCS: 93798

== ENCOUNTER 2019-11-06 13:00 | Outpatient (RCR) | payer MEDICARE, OTHER, SELFPAY ==
[2019-08-04 09:41] VITALS: BMI 23.9
[2019-10-31 00:46] VITALS: BP 120/70; BP 140/60
--- NOTE | 2019-11-04 11:11 | PCM.CR.ITP ---
Diagnosis - General Information Admitting Diagnosis: S/P CABG Personal Learning Style:: Audio/Visual, Written Barriers to Learning: No Barriers Stage of change r/t lifestyle modifications:: Action Gave educational material for:: Treating Heart Disease, Emotions & Heart Disease, Stress Management & Relaxation, Sleep Disorders & Heart Disease, How The Heart Works, What it means to have Heart Disease, How Coronary Artery Disease is Diagnosed, Heart Procedures, What Heart Medications Do, Risk Factors & Modifications, Living an Active Life, Nutrition - Education/Goals Individual Counseling: Initial Assessment: Abnormal Cholesterol Levels, High Blood Pressure Cardiac Rehabilitation Goals: 1. Maintain the individual as the primary focus of care. 2. To improve the patient's quality of life. 3. Identification of cardiac risk factors and provide cardiac risk factor management. 4. Enhance the psychosocial status of the patient. 5. Reconditioning enough to allow the patient to resume customary activities. 6. Control symptoms of cardiac disease Personal Goals: Initial Assessment: Improve management of stress and emotions, Improve energy level, Participate in home exercise program, Get back to work, or to resume activities faster, Improve knowledge of cardiac disease, Improve muscle strength and endurance, Improve diet and eating habits (eat healthier), Control risk factors (learn risk factor modification) Scale for measuring improvement of personal goals: Enter appropriate number in Comments. 2 = Unchanged. 3 = Slightly Better. 4 = Moderate Improvement. 5 = Met my Goal - Diagnosis & Disease Process Outcomes/Goals: Pt IDs own risk factors & lifestyle modifications by Session 10, Verbalizes symptoms of angina & response by session 3., Pt independently manages Plan/Interventions: Assist Pt to ID & engage in lifestyle modification to reduce CVD risk, Instruct on individual risk factors, Review symptoms of angina & emergency actions, Review secondary diagnosis & identify educational needs. 30 day Reassessments:: Progressing 30 day Reassessments:: Progressing 30 day Reassessments:: Met - Safety Referral to Physical Therapy: No Referral to [facility] Case Management: No Fall Risk Assessed:: Yes Assistive Devices:: None Exercise - 90-day Assessment - Visit Date of Eval: 11/04/19 Session #:: 34 - Physician Prescribed Exercise Modalities: Treadmill, Airdyne, NuStep Frequency: 3x/week for 12 weeks [36 sessions] Intensity: 60-80% of age predicted maximum heart rate reserve Current METSs:: 6.3 Target Heart Rate:: 99-129 Current RPE:: 13-14 Maximum Excercise HR:: 102 Resting Blood Pressure: 104/52 Maximum Exercise Blood Pressure: 138/64 EKG Type: NSR WITH RARE PVCs. - Outcomes & Goals Goals:: Verbalizes understanding of THR, RPE & goal METS by session 6, Documents in home exercise log/reports 30 min aerobic 5 day/wk by DC, Demonstrates accurate pulse taking by DC - Intervention & Plan Exercise Program Goals: Instruct on personal THR & RPE, Instruct on MET level & personal MET goal, Show patient to take own pulse /validate performance until accurate, Instruct on home exercise - 30-day Reassessments 30 day Reassessments:: Met - Outcomes & Goals Outcomes/Goals: Demonstrates correct Warm-up/exercise Cool-Down (S3) if = 2.5 METs, Verbalizes symptoms of exercise intolerance by Session 3 (S3), Demonstrate safe equipment use (S3) & follows exercise prescrition (6) - Intervention & Plan Plan/Intervention: Instruct warm-up & cool-down if exercising at > 2 METs, Instruct on symptoms of exercise intolerance & actions to take, Instruct & monitor on saf, Assess intial functional capacity & safety risk - 30-day Reassessments 30 day Reassessments:: Met Nutrition - 90-Day Assessment - Program Goals Nutrition Program Goals: LDL <100 optimal. 100 - 129 Near optimal. 130 - 159 Borderline High. 160 - 189 High. Total Cholesterol <200 desirable. 200 - 239 Borderline High. >/= 240 High. HDL < 40 Low >/=60 High. Triglycerides <150 desirable. <199 optimal. VlDL 5 - 40. HgbA1C <7%. BMI <25 Patient has diagnosis of Hyperlipidemia (ICD E78)?: Yes - Visit Date of Assessment:: 11/04/19 Session #:: 34 - Cholesterol/Lipids Triglycerides (mg/dL): 57 - 06/11/2019 Total Cholesterol (mg/dL): 128 LDL Cholesterol (mg/dL): 73 HDL Cholesterol (mg/dL): 44 Determine presence & major risk factors that modify LDL goal: Hypertension or hypertensive medication, Family history of premature CHD in Male < 55 years: female <65 yearsFa, Age men > 45 years; women >/= 55 years Outcomes/Goals: Pt IDs own risk factors & lifestyle modifications by Session 10, Verbalizes symptoms of angina & response by session 3., Pt independently manages Intervention/Plan: Instruct on personal lipid levels & lipid goals/NCEP guidelines, Instruct on cholesterol Referral to dietitian:: No 30-day Reassessments:: Progressing - Diabetes (Other Core Measures) Diabetes Type: Not Applicable - Weight Mgt (Other Care) Height: 5 ft 5 in Weight:: 141 lb BMI: 23.4 Diagnosis Overweight/Obesity BMI> 30% ICD-10 E66: No Intervention/Plan: Instruct on ideal BMI & set weight loss goal w/patient, Assist pt to ID & incorporate diet changes for weight loss by S9 - Healthy Eating Habits Will attend diet classes:: Yes Outcomes/Goals:: Consume diet rich in vegs,fruits,whole grain/high fiber,fish,lean meat, Limit sat/trans fats,cholesterol & added salts & sugars Intervention/Plan:: Assess current eating habits 30-day Reassessments:: Progressing - Education Gave educational materials for:: Healthy eating Medical- 90-Day Assessment - Visit Date of Eval: 11/04/19 Session #:: 34 - Medication Compliance Preventative Medication(s):: Aspirin, TOMAS inhibitor, Statin/lipid, Beta shaye H/O mental health issues: depression, anxiety, or addiction?: No Doesn?t believe in the benefits of treatment?: No Believes medications are unnecessary or harmful?: No Has a concern about medication side effects?: No Expresses concern over the cost of medications?: No Outcomes/Goals: Verbalizes medications,desired effect & common side effects @ DC, Pt self-reports following medication regimen, Keeps card in wallet w/medications listed by DC Interventions/plans: Instruct on medication effects & side effects, Review medication list w/patient every two weeks, Instruct importance of taking meds as ordered & assist problem solving 30-day Reassessments:: Met - Tobacco Use Tobacco Use: Non-smoker - Hypertension Resting Blood Pressure:: 104/52 [place] [employer] Hypertension Guidelines: [place] [employer] Hypertension Guidelines. Normal BP Less than 120/80. Elevated BP 120/80. Hypertension Stage 1: BP 130-139/80-89. Hypertesnion Stage 2: BP 140 or higher/90 or higher. Hypertension Crisis: BP higher than 180/120 Peak Exercise Blood Pressure:: 138/64 Outcomes/Goals: Able to verbalize/achieve optimal blood pressure <130/80, Incorporates diet changes & exercise for blood pressure control by DC Interventions/plan: Instruct on optimal blood pressure, hypertension & medications, Instruct on effects of sodium, alcohol, stress, exercise &hypertension 30 day Reassessments:: Progressing - Tobacco Cessation Referral Smoking Cessation Referral:: No Individual Education/Counseling:: No Education Schedule Given:: Yes Psychosocial - 90-Day Assess - VIsit Date of Eval: 11/04/19 Session #:: 34 Not Applicable: Yes History of previous Mental disease:: No - Target Goals Target Goals: Assess presence or absence of depression. Using a valid screening tool, maximizes coping skills. Positive support system - Psychosocial Test Tool Used:: [employer] QOL Cardiac, PHQ-9 Questionnaire phq-9 Severity: Severity. 1-4 Minimal Depression. 5-9 Mild Depression. 10-14 Moderate Depression. 15-19 Moderately Sever Depression. 20-27 Severe Depression. Rule: Patient Health Questionnaire 90-Day Re-eval Assessment 1. Little interest or pleasure in doing things: Not at all 2. Feeling down, depressed, or hopeless: Not at all 3. Trouble falling or staying asleep, or sleeping too much: Not at all 4. Feeling tired or having little energy: Not at all 5. Poor appetite or overeating: Not at all 6. Feeling bad about yourself -- or that you are a failure or have let yourself or your family down: Not at all 7. Trouble concentrating on things, such as reading the newspaper or watching television: Not at all 8. Moving or speaking so slowly that other people could have noticed. Or the opposite - being so fidgety or restless that you have been moving around a lot more than usual: Not at all 9. Thoughts that you would be better off , or of hurting yourself in some way: Not at all Total Score: 0 Self-Efficacy 90-Day Re-eval Assessment We would like to know how confident you are in doing certain activities. Please select your confidence level for:: Select your confidence level for the following using the scale 1-10 where 1 is not at all confident and 10 is totally confident. Your score is the average of all 6 responses. Fatigue: How confident are you that you can keep the fatigue caused by your disease from interfering with the things you want to do? Select Number: 9 Physical Discomfort or Pain: How confident are you that you can keep the physical discomfort or pain of your disease from interfering with the things you want to do? Select Number: 10 Emotional Distress: How confident are you that you can keep the emotional distress caused by your disease from interfering with the things you want to do? Select Number: 10 Other Symptoms or Health Problems: How confident are you that you can keep other symptoms or health problems from interfering with the things you want to do? Select Number: 10 Different Tasks and Activities: How confident are you that you can do the different tasks and activities needed to manage your health condition so as to reduce your need to see a doctor? Select Number: 10 Medication: How confident are you that you can do things other than just taking medication to reduce how much your illness affects your everyday life? Select Number: 10 Total Score:: 9 Nutrition Survey - Nutrition Survey Instructions Scoring Instructions: Scoring is as follows: Yes = 1 points. No = 0 point. Patient score that is >/=12 is considered to be at potential nutritional risk and could benefit from a referral to a registered dietitian. - Nutrition Survey Discharge Have you lost >10 lbs over the past 2 months without trying?: No Are you following a special diet at home for diabetes, low fat, or low salt?: No Are you interested in meeting with a dietitian for help understanding your diet?: No Do you eat less than 3 meals a day?: No Do you eat fatty meats (medellin, sausage, ribs, etc), fried foods, desserts, large amounts of salad dressings, margarine, butter, or cheese most days?: No Do you have food allergies? [Enter types in comment field]: No Do you eat in restaurants more than 3 times a week?: No Do you season food with salt, seasoning salt, or garlic salt?: No Do you used canned, boxed, frozen meals, or soups, seasoning packets?: No Total Score:: 0
[2019-11-04 11:19] VITALS: BP 104/52; BP 138/64; BMI 23.4
== END 2019-11-28 23:59 ==
LOC: CR 13:00
PROVIDERS: Family Provider Family Medicine; PCP Family Medicine; Referring Provider Specialist; Visit Provider Specialist
DX: I25.10 Atherosclerotic heart disease of native coronary artery without angina pectoris (principal); Z95.1 Presence of aortocoronary bypass graft
CPT/HCPCS: 93798

== ENCOUNTER → 2020-07-11 08:48 | Outpatient (CLI) | payer MEDICARE, OTHER, SELFPAY ==
[2019-11-04 11:19] VITALS: BMI 23.4
[2020-02-03 09:19] VITALS: BMI 23.9
[2020-07-11 10:43] LABS: ALB/GLOB Ratio 0.9 RATIO (0.9-2.4); AST(SGOT) 26 U/L (15-37); Alanine Aminotransfer ALT/SGPT 39 U/L (13-56); Albumin, Serum 3.9 g/dL (3.2-5.0); Alkaline Phosphatase 107 U/L (45-117); Anion Gap 3 (5-15); BUN 13 mg/dL (7-18); BUN/Creat Ratio 14.8 RATIO (10-20); Calcium,Total 9.2 mg/dL (8.5-10.1); Chloride 104 mmol/L (98-107); Cholesterol 112 mg/dL (200); Creatinine, Serum 0.88 mg/dL (0.55-1.02); EST Glomerular Filtration Rate 68 mL/min (>60); Est Glom Filt Rate - Afr Amer 82 mL/min (>60); Globulin 4.3 g/dL (2.2-4.2); Glucose 83 mg/dL (74-106); High Density Lipoprotein 49 mg/dL; Potassium 4.1 mmol/L (3.5-5.1); Protein, Total 8.2 g/dL (6.4-8.2); Sodium Level 139 mmol/L (136-145); Triglycerides 57 mg/dL; Very Low Density Lipoprotein 11 mg/dL (5-40)
== END ==
PROVIDERS: PCP Family Medicine; Referring Provider Specialist; Visit Provider Specialist
DX: I25.10 Atherosclerotic heart disease of native coronary artery without angina pectoris (principal); Z95.1 Presence of aortocoronary bypass graft
CPT/HCPCS: 36415; 80053; 80061

== ENCOUNTER → 2021-09-08 08:53 | Outpatient (CLI) | payer MEDICARE, OTHER, SELFPAY ==
[2019-11-04 11:19] VITALS: BMI 23.4
[2021-09-08 10:57] LABS: AST(SGOT) 26 U/L (15-37); Alanine Aminotransfer ALT/SGPT 28 U/L (13-56); Albumin, Serum 3.6 g/dL (3.2-5.0); Alkaline Phosphatase 75 U/L (45-117); Bilirubin, Direct 0.09 mg/dL (0.00-0.30); Cholesterol 116 mg/dL (200); Globulin 3.8 g/dL (2.2-4.2); High Density Lipoprotein 54 mg/dL; Protein, Total 7.4 g/dL (6.4-8.2); Triglycerides 43 mg/dL; Very Low Density Lipoprotein 9 mg/dL (5-40)
== END ==
PROVIDERS: PCP Family Medicine; Referring Provider Physician Assistant Medical; Visit Provider Physician Assistant Medical
DX: E78.5 Hyperlipidemia, unspecified (principal); I25.10 Atherosclerotic heart disease of native coronary artery without angina pectoris
CPT/HCPCS: 36415; 80061; 80076

== ENCOUNTER 2022-01-04 08:54 | Outpatient (CLI) | payer MEDICARE, OTHER, SELFPAY ==
[2019-11-04 11:19] VITALS: BMI 23.4
--- NOTE | 2022-01-04 09:06 | CDU_ITS ---
Reason For Study: Carotid bruits Rt. Velocities/BP Lt. Velocities/BP Prox CCA 90.4/17.3 cm/sec. Prox CCA 69.5/13.5 cm/sec. Mid CCA 65.6/13.4 cm/sec. Mid CCA 64/14.6 cm/sec. Dist CCA 53.9/16 cm/sec. Dist CCA 54.1/16.8 cm/sec. Prox ICA 49.8/15.7 cm/sec. Prox ICA 54.4/15.1 cm/sec. Mid ICA 72.8/24.5 cm/sec. Mid ICA 67.9/22.5 cm/sec. Dist ICA 70.1/17.5 cm/sec. Dist ICA 74.1/21.2 cm/sec. Rt. ICA/CCA = 1.11. Lt. ICA/CCA = 1.16. Prox ECA 76/8.2 cm/sec. Prox ECA 102.3/10.2 cm/sec. Rt. Vert. 47.6/13.5 cm/sec. Lt. Vert. 33.3/6 cm/sec. Right Extracranial There is homogeneous, smooth atherosclerotic plaque noted in the right common carotid artery. There is heterogeneous, smooth atherosclerotic plaque noted in the right internal carotid artery. There is intimal thickening but no significant atherosclerotic plaque noted in the right external carotid artery. Antegrade flow is noted in the right vertebral artery. Left Extracranial There is homogeneous, smooth atherosclerotic plaque noted in the left common carotid artery. There is heterogeneous, smooth atherosclerotic plaque noted in the left internal carotid artery. There is intimal thickening but no significant atherosclerotic plaque noted in the left external carotid artery. Antegrade flow is noted in the left vertebral artery. There is heterogeneous, irregular atherosclerotic plaque noted in the left bulb. Procedure Carotid Duplex [id number]. This is a Carotid Duplex examination using B-mode, color flow and specral Doppler. Exam performed in department. VL/Carotid Duplex Ultrasound Interpretation Summary Minimal plaque at the proximal right internal carotid artery with less than 50% stenosis Less than 50% stenosis right external carotid artery Smooth heterogenous plaque at the proximal left internal carotid artery with le ss than 50% stenosis Less than 50% stenosis left external carotid artery Minimal heterogenous irregular plaque at the left carotid bulb Patent and antegrade vertebrals bilaterally Ordering Physician: Carlota Rojas Referring Physician: Eddie Rivas Performed By: Evelyn Pantoja RVT
== END 2022-01-04 23:59 | disposition home or self-care (01) ==
LOC: CVS 08:59
PROVIDERS: PCP Family Medicine; Visit Provider Physician Assistant Medical
DX: R09.89 Other specified symptoms and signs involving the circulatory and respiratory systems (principal)
CPT/HCPCS: 93880

== ENCOUNTER → 2022-04-27 | Outpatient (CLI) | payer MEDICARE, OTHER, SELFPAY ==
[2019-11-04 11:19] VITALS: BMI 23.4
[2022-04-27 09:52] LABS: AST(SGOT) 19 U/L (15-37); Alanine Aminotransfer ALT/SGPT 27 U/L (13-56); Albumin, Serum 3.8 g/dL (3.2-5.0); Alkaline Phosphatase 71 U/L (45-117); Cholesterol 140 mg/dL (200); Globulin 3.6 g/dL (2.2-4.2); High Density Lipoprotein 59 mg/dL; Protein, Total 7.4 g/dL (6.4-8.2); Triglycerides 105 mg/dL; Very Low Density Lipoprotein 21 mg/dL (5-40)
== END | disposition home or self-care (01) ==
PROVIDERS: PCP Family Medicine; Referring Provider Physician Assistant Medical; Visit Provider Physician Assistant Medical
DX: I25.10 Atherosclerotic heart disease of native coronary artery without angina pectoris (principal); E78.5 Hyperlipidemia, unspecified
CPT/HCPCS: 36415; 80061; 80076

== ENCOUNTER → 2023-12-10 | Outpatient (CLI) | payer MEDICARE, SELFPAY ==
[2019-11-04 11:19] VITALS: BMI 23.4
--- NOTE | 2023-12-10 06:49 | ECHOD_ITS ---
Reason For Study: CA/ASHD Procedure This was a 2D Doppler, Color Flow transthoracic echocardiogram. Exam performed in department. Left Ventricle Normal left ventricle. Left ventricular systolic function is normal. Stage 1 diastolic dysfunction. The left ventricular ejection fraction is 65 %. No regional wall motion abnormalities noted. Right Ventricle Normal RV size. Normal systolic function. Atria Normal left atrium. Normal right atrium. Mitral Valve Normal mitral valve. Tricuspid Valve Normal tricuspid valve. Mild tricuspid valve insufficiency. Pulmonary artery systolic pressure is 30 mmHg. Aortic Valve Trisinus/trileaflet aortic valve. Pulmonic Valve Normal pulmonic valve. Great Vessels Normal aortic root. The pulmonary artery is normal size. Normal inferior vena cava. Pericardium/Pleural No pericardial effusion. MMode/2D Measurements & Calculations LVIDd: 4.1 cm IVSd: 0.92 cm Ao root diam: 3.8 cm LVIDs: 2.4 cm LVPWd: 0.88 cm RVDd: 2.4 cm FS: 40.8 % LAV(MOD-bp): 43.7 ml LVAd ap4: 19.9 cm2 LVAd ap2: 19.3 cm2 LAV(MOD-bp) Indexed: 25.3 ml/m2 LVLd ap4: 6.7 cm LVLd ap2: 7.1 cm LAV(MOD-sp2): 42.8 ml EDV(MOD-sp4): 49.5 ml EDV(MOD-sp2): 48.1 ml LAV(MOD-sp4): 42.8 ml EDV(sp4-el): 50.0 ml EDV(sp2-el): 44.2 ml LVAs ap4: 10.3 cm2 LVAs ap2: 11.3 cm2 LVLs ap4: 5.8 cm LVLs ap2: 6.0 cm ESV(MOD-sp4): 17.2 ml ESV(MOD-sp2): 19.5 ml ESV(sp4-el): 15.6 ml ESV(sp2-el): 18.2 ml EF(MOD-sp4): 65.3 % EF(MOD-sp2): 59.5 % EF(sp4-el): 68.8 % SV(MOD-sp4): 32.3 ml SV(MOD-sp2): 28.6 ml SV(sp4-el): 34.4 ml LA dimension(2D): 3.1 cm LA A4 area: 16.0 cm2 RA A4 area: 12.5 cm2 TAPSE: 1.6 cm Time Measurements MV dec time: 0.27 sec Doppler Measurements & Calculations MV E max ric: 62.2 cm/sec Lat Peak E' Ric: 7.5 cm/sec Med Peak E' Ric: 7.2 cm/sec MV A max ric: 65.0 cm/sec E/E' lat: 8.3 E/E' med: 8.7 MV E/A: 0.96 MV V2 max: 73.5 cm/sec MV P1/2t max ric: 69.4 cm/sec Ao V2 max: 123.9 cm/sec MV max P.2 mmHg MV P1/2t: 73.9 msec Ao max P.2 mmHg MV V2 mean: 44.7 cm/sec MV dec slope: 274.8 cm/sec2 Ao V2 mean: 87.2 cm/sec MV mean P.89 mmHg Ao mean P.4 mmHg MV V2 VTI: 18.6 cm MVA(P1/2t): 3.0 cm2 Ao V2 VTI: 26.5 cm AV (velocity ratio): 0.70 LV V1 max: 92.0 cm/sec PA V2 max: 95.3 cm/sec PI dec slope: 180.9 cm/sec2 LV V1 max P.4 mmHg PA V2 mean: 74.2 cm/sec LV V1 mean P.9 mmHg LV V1 mean: 64.0 cm/sec LV V1 VTI: 18.6 cm TR max ric: 254.4 cm/sec TR max P.9 mmHg ECHO/Echo Complete Interpretation Summary Normal left ventricle. Left ventricular systolic function is normal. No regional wall motion abnormalities noted. Stage 1 diastolic dysfunction. The left ventricular ejection fraction is 65 %. Pulmonary artery systolic pressure is 30 mmHg. Ordering Physician: Parris Chao Referring Physician: Eddie Rivas Performed By: Clare Melgar RDCS, RVT
--- OUTSIDE RECORDS SUMMARY | 2023-12-10 06:55 | XMS RPT_ITS | CCD ---
Author Name Unknown Address [address] [place] [address] Organization [facility] Care Team Providers Care Pharmacy Resource Tech Name Role Phone GRACIA SANTOS Attending Unavail able RAY RIVAS Primary Care Unava Ray Haynes MD Primary Care Provider Benson Blanton MD Unavailable Most RN, Yara Unavailable Ray Rivas MD Primary Care Provider Benson Blanton MD Unavailable Most RN, Yara Unavailable Ray Rivas MD Primary Care Provider Benson Blanton MD Unavailable Most RN, Yara Unavailable Most RN, Yara Unavailable RAY RIVAS Primary Care Unavailab RAY Hernandez Referring Unavailab RAY Hernandez Referring Unavailab RAY Hernandez Primary Care Unavailab RAY Hernandez Primary Care Unavailab le PODCAROLIN AGGARWAL Attending Unavailable MICHAEL AMBROCIO Referring Unavailable RAY RIVAS Primary Care Unavailab RAY Hernandez Primary Care Unavailab le CAROLIN BLANCA Attending Unavailable ALEKSANDRA GHOTRA Attending Unavailable RAY RIVAS Primary Care Unavailab ALEKSANDRA Myers Attending Unavailable RAY RIVAS Primary Care Unavailab le RAY RIVAS Primary Care Unavailab le PODCAROLIN AGGARWAL Attending Unavailable RAY RIVAS Primary Care Unavailab le PODLOGAR, CAROLIN Referring Unavailable O'BRIAN, ROMINA Attending Unavailable RAY RIVAS Primary Care Unavailab le PODLOGAR, CAROLIN Referring Unavailable RAY RIVAS Primary Care Unavailab le PODLOGAR, CAROLIN Referring Unavailable O'BRIAN, ROMINA Attending Unavailable RAY RIVAS Primary Care Unavailab le PODLOGAR, CAROLIN Referring Unavailable O'BRIAN, ROMINA Attending Unavailable RAY RIVAS Primary Care Unavailab le PODLOGAR, CAROLIN Referring Unavailable O'BRIAN, ROMINA Attending Unavailable RAY RIVAS Primary Care Unavailab le PODLOGAR, CAROLIN Referring Unavailable O'BRIAN, ROMINA Attending Unavailable RAY RIVAS Primary Care Unavailab le PODLOGAR, CAROLIN Referring Unavailable O'BRIAN, ROMINA Attending Unavailable RAY RIVAS Primary Care Unavailab le PODLOGAR, CAROLIN Referring Unavailable Allergies Allergy Classification Reported Allergen(s) Allergy Type Date of Onset Reaction(s) Facility (20 sources) Doxycycline; Translations: [DOXYCYCLINE] Drug Allergy 04-11-2005 GI Upset [facility] Repository Medications Current Medications Medication Drug Class(es) Dates Sig (Normalized) Sig (Original) atorvastatin 40 mg oral tablet (20 sources) HMG-CoA Reductase Inhibitor Start: 09-08-2021 End: 09-05-2024 take 1 tablet by mouth once daily at bedtime atorvastatin (LIPITOR) 40 mg tablet Take 1 tablet by mouth daily at bedtime. 90 tablet 3 09/06/2023 09/05/2024 Active Completed/Discontinued Medications Medication Drug Class(es) Dates Sig (Normalized) Sig (Original) acetaminophen 325 mg oral tablet (11 sources) Start: 06-19-2019 End: 10-10-2022 take 2 tablets by mouth every six hours as needed acetaminophen (TYLENOL) 325 mg tablet Take 2 tablets by mouth every 6 hours as needed. 0 06/19/2019 10/10/2022 Discontinued Problems Active Problems Problem Classification Problem Date Documented Da te Episodic/Chronic Asthma (20 sources) Mild intermittent asthma; Translations: [Mild intermittent asthma with (acute) exacerbation] Onset: 07-17-2017 07-17-2017 Chronic Coronary atherosclerosis and other heart disease (20 sources) Coronary arteriosclerosis; Translations: [Atherosclerotic heart disease of stebbins coronary artery without angina pectoris] Onset: 07-16-2019 07-16-2019 Chronic Esophageal disorders (20 sources) Esophageal dysmotility; Translations: [Dyskinesia of esophagus] Onset: 03-28-2012 03-28-2012 Chronic Hemorrhoids (20 sources) Internal hemorrhoids; Translations: [Other hemorrhoids] 07-24-2005 Episodic Menopausal disorders (20 sources) Atrophic vaginitis; Translations: [Postmenopausal atrophic vaginitis] Onset: 10-03-2009 10-03-2009 Chronic Mood disorders (20 sources) Depressive disorder; Translations: [Depression] Onset: 01-01-2013 01-01-2013 Chronic Mood disorders (1 source) Mood disorders; Translations: [Depression, unspecified depression type] Onset: 01-01-2013 Osteoarthritis (1 source) Osteoarthritis of left knee joint; Translations: [Unilateral primary osteoarthritis, left knee] Chronic Other gastrointestinal disorders (20 sources) Irritable bowel syndrome; Translations: [Irritable bowel syndrome without diarrhea] 07-24-2005 Chronic Other inflammatory condition of skin (3 sources) Itching of skin; Translations: [Pruritus, unspecified] Episodic Other inflammatory condition of skin (2 sources) Pruritus, unspecified; Translations: [Unspecified pruritic disorder] Onset: 09-06-2023 09-06-2023 Episodic Other nervous system disorders (1 source) Other chronic pain; Translations: [Chronic midline low back pain without sciatica] Onset: 04-19-2023 Chronic Other nervous system disorders (1 source) Burning sensation; Translations: [Other disturbances of skin sensation] Episodic Other screening for suspected conditions (not mental disorders or infectious disease) (4 sources) Patient encounter status; Translations: [Encounter for screening mammogram for malignant neoplasm of breast] Onset: 08-26-2023 07-31-2023 Episodic Otitis media and related conditions (1 source) Dysfunction of left eustachian tube; Translations: [Other specified disorders of Eustachian tube, left ear] Episodic Rheumatoid arthritis and related disease (20 sources) Rheumatoid arthritis; Translations: [Rheumatoid arthritis, unspecified] Onset: 07-19-2019 07-19-2019 Chronic Superficial injury; contusion (1 source) Abrasion of ear region; Translations: [Abrasion of left ear, initial encounter] Episodic Systemic lupus erythematosus and connective tissue disorders (20 sources) Mucous membrane dryness; Translations: [Sicca syndrome, unspecified] Onset: 07-25-2005 07-19-2019 Chronic Thyroid disorders (20 sources) Acquired hypothyroidism; Translations: [Hypothyroidism, unspecified] Onset: 08-25-2016 08-25-2016 Chronic Unclassified (1 source) Chronic midline low back pain without sciatica; Translations: [Chronic midline low back pain without sciatica] Onset: 04-19-2023 Past or Other Problems Problem Classification Problem Date Documented Da te Episodic/Chronic Conditions associated with dizziness or vertigo (20 sources) Benign paroxysmal positional vertigo; Translations: [Benign paroxysmal vertigo, unspecified ear] Onset: 11-25-2014 11-25-2014 Episodic Coronary atherosclerosis and other heart disease (1 source) Presence of aortocoronary bypass graft; Translations: [S/P CABG (coronary artery bypass graft)] Onset: 07-13-2019 Episodic Immunizations and screening for infectious disease (2 sources) Vaccination needed; Translations: [Encounter for immunization] Onset: 11-21-2022 Episodic Other aftercare (20 sources) Drug therapy finding; Translations: [Other chcf (current) drug therapy] Onset: 08-05-2020 11-30-2020 Episodic Other aftercare (1 source) Other intermediate manager (current) drug therapy; Translations: [Long-term use of Plaquenil] Onset: 11-30-2020 Episodic Other and unspecified benign neoplasm (20 sources) Neuroma; Translations: [Benign neoplasm of peripheral nerves and autonomic nervous system, unspecified] Onset: 05-28-2014 05-28-2014 Episodic Other connective tissue disease (20 sources) Digital mucous cyst; Translations: [Ganglion, unspecified hand] Onset: 12-05-2015 12-05-2015 Episodic Other non-traumatic joint disorders (20 sources) Pain in left knee; Translations: [Pain in joint, lower leg] Onset: 05-18-2019 Episodic Pleurisy; pneumothorax; pulmonary collapse (20 sources) Pleural effusion; Translations: [Pleural effusion, not elsewhere classified] Onset: 08-05-2020 08-05-2020 Episodic Spondylosis; intervertebral disc disorders; other back problems (20 sources) Backache; Translations: [Dorsalgia, unspecified] Onset: 03-06-2023 Episodic Viral infection (20 sources) Postherpetic neuralgia; Translations: [Other postherpetic nervous system involvement] Onset: 06-02-2015 06-02-2015 Episodic Results Test Name Value Interpretation Reference Range Facil ity Vital Signs Date Time Vital Sign Value Performing Clinician Facility 09-06-2023 13:08-0500 Body weight 66.86 kg Carolin Podlogar 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.RECORDER HELPER SEISMOGRAPH Work Phone: [facility] 09-06-2023 13:08-0500 Diastolic blood pressure 76 mm[Hg] Carolin Podlogar 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.RECORDER HELPER SEISMOGRAPH Work Phone: [facility] 09-06-2023 13:08-0500 Heart rate 79 /min Carolin Podlogar 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.RECORDER HELPER SEISMOGRAPH Work Phone: [facility] 09-06-2023 13:08-0500 Respiratory rate 18 /min Carolin Podlogar 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.RECORDER HELPER SEISMOGRAPH Work Phone: [facility] 09-06-2023 13:08-0500 SaO2% (BldA) [Mass fraction] 97 % Carolin Podlogar 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.RECORDER HELPER SEISMOGRAPH Work Phone: [facility] 09-06-2023 13:08-0500 Systolic blood pressure 118 mm[Hg] Carolin Podlogar 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.RECORDER HELPER SEISMOGRAPH Work Phone: [facility] 03-06-2023 12:51-0400 Body weight 66.5 kg Carolin Podlogar 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.RECORDER HELPER SEISMOGRAPH Work Phone: [facility] 03-06-2023 12:51-0400 Diastolic blood pressure 72 mm[Hg] Carolin Podlogar 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.RECORDER HELPER SEISMOGRAPH Work Phone: [facility] 03-06-2023 12:51-0400 Heart rate 84 /min Carolin Podlogar 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.RECORDER HELPER SEISMOGRAPH Work Phone: [facility] 03-06-2023 12:51-0400 Respiratory rate 18 /min Carolin Podlogar 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.RECORDER HELPER SEISMOGRAPH Work Phone: [facility] 03-06-2023 12:51-0400 SaO2% (BldA) [Mass fraction] 100 % Carolin Podlogar 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.RECORDER HELPER SEISMOGRAPH Work Phone: [facility] 03-06-2023 12:51-0400 Systolic blood pressure 130 mm[Hg] Carolin Podlogar 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.RECORDER HELPER SEISMOGRAPH Work Phone: [facility] 10-10-2022 15:54-0500 Body temperature 98.1 [degF] Emiliano Curtis 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.RECORDER HELPER SEISMOGRAPH Work Phone: [facility] 10-10-2022 15:54-0500 Body weight 65.32 kg Emiliano Curtis 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.RECORDER HELPER SEISMOGRAPH Work Phone: [facility] 10-10-2022 15:54-0500 Diastolic blood pressure 72 mm[Hg] Emiliano Curtis 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.RECORDER HELPER SEISMOGRAPH Work Phone: [facility] 10-10-2022 15:54-0500 Heart rate 94 /min Emiliano Curtis 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.RECORDER HELPER SEISMOGRAPH Work Phone: [facility] 10-10-2022 15:54-0500 Respiratory rate 16 /min Emiliano Curtis 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.RECORDER HELPER SEISMOGRAPH Work Phone: [facility] 10-10-2022 15:54-0500 SaO2% (BldA) [Mass fraction] 98 % Emiliano Curtis 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.RECORDER HELPER SEISMOGRAPH Work Phone: [facility] 10-10-2022 15:54-0500 Systolic blood pressure 134 mm[Hg] Emiliano Curtis 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.RECORDER HELPER SEISMOGRAPH Work Phone: [facility] 09-05-2022 13:27-0500 Body weight 65.32 kg Carolin Podlogar 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.RECORDER HELPER SEISMOGRAPH Work Phone: [facility] 09-05-2022 13:27-0500 Diastolic blood pressure 72 mm[Hg] Carolin Podlogar 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.RECORDER HELPER SEISMOGRAPH Work Phone: [facility] 09-05-2022 13:27-0500 Heart rate 83 /min Carolin Podlogar 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.RECORDER HELPER SEISMOGRAPH Work Phone: [facility] 09-05-2022 13:27-0500 Respiratory rate 16 /min Carolin Podlogar 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.RECORDER HELPER SEISMOGRAPH Work Phone: [facility] 09-05-2022 13:27-0500 SaO2% (BldA) [Mass fraction] 98 % Carolin Podlogar 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.RECORDER HELPER SEISMOGRAPH Work Phone: [facility] 09-05-2022 13:27-0500 Systolic blood pressure 136 mm[Hg] Carolin Podlogar 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.RECORDER HELPER SEISMOGRAPH Work Phone: [facility] 04-27-2022 09:09-0400 Body temperature 97.7 [degF] Carolin Podlogar 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.RECORDER HELPER SEISMOGRAPH Work Phone: [facility] 04-27-2022 09:09-0400 Body weight 62.96 kg Carolin Podlogar 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.RECORDER HELPER SEISMOGRAPH Work Phone: [facility] 04-27-2022 09:09-0400 Diastolic blood pressure 86 mm[Hg] Carolin Podlogar 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.RECORDER HELPER SEISMOGRAPH Work Phone: [facility] 04-27-2022 09:09-0400 Heart rate 71 /min Carolin Podlogar 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.RECORDER HELPER SEISMOGRAPH Work Phone: [facility] 04-27-2022 09:09-0400 Respiratory rate 16 /min Carolin Podlogar 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.RECORDER HELPER SEISMOGRAPH Work Phone: [facility] 04-27-2022 09:09-0400 SaO2% (BldA) [Mass fraction] 99 % Carolin Podlogar 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.RECORDER HELPER SEISMOGRAPH Work Phone: [facility] 04-27-2022 09:09-0400 Systolic blood pressure 132 mm[Hg] Carolin Podlogar 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.RECORDER HELPER SEISMOGRAPH Work Phone: [facility] 02-07-2022 11:56-0400 Body temperature 98.4 [degF] Elsa Negron MD Work Phone: [facility] 02-07-2022 11:56-0400 Body weight 62.14 kg Elsa Negron MD Work Phone: [facility] 02-07-2022 11:56-0400 Diastolic blood pressure 84 mm[Hg] Elsa Negron MD Work Phone: [facility] 02-07-2022 11:56-0400 Systolic blood pressure 143 mm[Hg] Elsa Negron MD Work Phone: [facility] 06-15-2019 15:29-0400 Body temperature 36.0 Deg Niharika [facility] Encounters Encounter Date Encounter Type Care Provider Facility Start: 11-06-2023 Aylin carvalho 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.RECORDER HELPER SEISMOGRAPH Work Phone: Rheumatology Procedures Date Procedure Procedure Detail Performing Clinician Start: 09-06-2023 INFLUENZA VACCINE, PRSV FREE, AGE 65+ YR, HIGH DOSE, QUADRIVALENT (FLUZONE HIGH-DOSE) Carolin Johnsonlogmanoj 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.RECORDER HELPER SEISMOGRAPH Work Phone: Start: 05-21-2023 Lipid 1996 panel - Serum or Plasma Screen Wstr Start: 11-21-2022 INFLUENZA SEASONAL QUADRIVALENT HIGH DOSE AGE 65+ Carolin Podlogar 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.RECORDER HELPER SEISMOGRAPH Work Phone: Start: 08-20-2022 End: 08-20-2022 Mammography Ray dumont MD Work Phone: Start: 11-20-2021 Arthrocentesis aspir&/inj major jt/bursa w/o us Blane Rabago MD Work Phone: Start: 08-17-2021 Mammography Blane Rabago MD Work Phone: Start: 07-13-2019 History of coronary artery bypass grafting S/P CABG (coronary artery bypass graft) Blane Rabago MD Work Phone: Start: 06-16-2019 Electrocardiogram Start: 06-15-2019 Electrocardiogram Start: 06-14-2019 Antibody screen Plan of Treatment Date Care Activity Detail Author Start: 05-21-2028 Lipid 1996 panel - Serum or Plasma Lipid Screening [facility] Start: 05-21-2028 Lipid panel Lipid Screening [facility] Start: 05-21-2028 LIPID SCREEN LIPID SCREEN [facility] Start: 09-08-2026 LIPID SCREEN LIPID SCREEN [facility] Start: 05-21-2026 DIABETES SCREEN DIABETES SCREEN [facility] Start: 05-21-2026 Diabetes Screening Diabetes Screening [facility] Start: 11-16-2025 DIABETES SCREEN DIABETES SCREEN [facility] Start: 02-07-2025 DIABETES SCREEN DIABETES SCREEN [facility] Start: 09-08-2024 DIABETES SCREEN DIABETES SCREEN [facility] Start: 09-06-2024 Annual PCP Team Chronic Disease Visit Annual PCP Team Chronic Disease Visit [facility] Start: 08-26-2024 Mammography Mammogram Screening [facility] Start: 08-26-2024 Screening for malignant neoplasm of breast Mammogram Screening [facility] Start: 05-21-2024 Hepatitis B surface antibody level LDL CHOLESTEROL [facility] Start: 03-07-2024 End: 06-06-2024 Comprehensive metabolic 2000 panel - Serum or Plasma COMP METABOLIC PANEL Lab Routine Coronary artery disease involving stebbins heart without angina pectoris, unspecified vessel or lesion type Expected: 03/07/2024, Expires: 06/06/2024 [facility] Work Phone: Immunizations Immunization Date Immunization Notes Care Provider Zaria alexander 09-06-2023 influenza (HD-IIV4) vaccine, age 65+ yr, high dose, quadrivalent, PF (FLUZONE HIGH-DOSE) Carolin Podlogar 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.ZUHAIR Work Phone: [facility] 11-21-2022 influenza, high-dose , quadrivalent vaccine (FLUZONE HIGH DOSE QUADRIVALENT) Carolin Podlogar 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.ZUHAIR Work Phone: [facility] 11-21-2022 influenza virus vacc ine, unspecified formulation Screen Wstr [facility] 09-08-2021 influenza, high-dose , quadrivalent vaccine (FLUZONE HIGH DOSE QUADRIVALENT) Blane Rabago MD Work Phone: [facility] 07-05-2020 influenza, high-dose , quadrivalent vaccine (FLUZONE HIGH DOSE QUADRIVALENT) Blane Rabago MD Work Phone: [facility] Work Phone: 07-21-2019 influenza, high dose seasonal, preservative-free Blane Rabago MD Work Phone: [facility] 06-20-2018 influenza, high dose seasonal, preservative-free Blane Rabago MD Work Phone: [facility] 05-29-2017 influenza, high dose seasonal, preservative-free Balne Rabago MD Work Phone: [facility] 08-15-2016 influenza, high dose seasonal, preservative-free Blane Rabago MD Work Phone: [facility] 08-15-2016 pneumococcal polysaccharide vaccine, 23 valent Blane Rabago MD Work Phone: [facility] 10-28-2015 pneumococcal conjuga te vaccine, 13 valent Blane Rabago MD Work Phone: [facility] 10-03-2015 influenza, injectabl e, quadrivalent, preservative free Blane Rabago MD Work Phone: [facility] 07-08-2014 influenza, seasonal, injectable Blane Rabago MD Work Phone: [facility] Work Phone: 09-07-2013 zoster vaccine, live Blane Rabago MD Work Phone: [facility] 03-16-2013 tetanus toxoid, redu criselda diphtheria toxoid, and acellular pertussis vaccine, adsorbed Blane Rabago MD Work Phone: [facility] 07-11-2012 influenza virus vacc ine, unspecified formulation Blane Rabago MD Work Phone: [facility] 08-20-2011 influenza virus vacc ine, unspecified formulation Blane Rabago MD Work Phone: [facility] 07-13-2010 influenza virus vacc ine, unspecified formulation Blane Rabago MD Work Phone: [facility] 07-13-2010 pneumococcal polysaccharide vaccine, 23 valent Blane Rabago MD Work Phone: [facility] 07-14-2009 influenza virus vacc ine, unspecified formulation Blane Rabago MD Work Phone: [facility] 08-06-2008 influenza virus vacc ine, unspecified formulation Blane Rabago MD Work Phone: [facility] Work Phone: 08-04-2007 influenza virus vacc ine, unspecified formulation Blane Rabago MD Work Phone: [facility] Work Phone: 07-25-2005 influenza virus vacc ine, unspecified formulation Blane Rabago MD Work Phone: [facility] Payers Date Payer Category Payer Medicare [id number] 2022 Unknown [id number] 2019 Unknown [email or web address] LIFE AND CASUALTY SUPPLEMENT [id number] 2019-Present [phone] [address] [place] [address] Indemnity [id number] 2015 Medicare [id number] 2015 Medicare MEDICARE MEDICAR E A AND B [id number] 2015-Present [phone] [place] [address] Medicare [id number] 2015 Medicare [id number] 1950 Unknown [id number] Unknown [id number] Social History Date Type Detail Facility Start: 09-18-2012 End: 09-05-2022 Tobacco smoking status NHIS Never smoked tobacco [facility] Work Phone: Start: 11-20-2021 End: 10-10-2023 Alcohol intake Current non-drinker of alcohol (finding) [facility] Start: 07-13-2009 History SDOH Alcohol Comment occaisional maybe one a year [facility] Start: 07-05-2020 History SDOH Social Connections Phone 5 [facility] Start: 07-05-2020 History SDOH Social Connections Get Together 2 [facility] Start: 07-05-2020 History SDOH Social Connections Meetings 1 [facility] Start: 07-05-2020 History SDOH Social Connections Living 3 [facility] Start: 07-05-2020 History SDOH Physical Activity DPW 7 [facility] Start: 07-05-2020 History SDOH Physical Activity MPS 4 [facility] Start: 07-05-2020 Education 13 [facility] Start: 1950 Sex Assigned At Female [facility] Start: 10-21-2021 End: 08-20-2022 Exposure to SARS-CoV-2 (event) Not sure [facility] Start: 09-18-2012 End: 09-05-2022 Tobacco use and exposure Smokeless tobacco non-user [facility] Start: 07-05-2020 End: 03-06-2023 History of Social function [facility] Work Phone: Start: 07-05-2020 End: 03-06-2023 Social connection and isolation panel [facility] Work Phone: Do you belong to any clubs or organizations such as methodist groups, unions, fraternal or athletic groups, or school groups? No [facility] Work Phone: Are you now , , , , never or living with a partner? [facility] Work Phone: How hard is it for y ou to pay for the very basics like food, housing, medical care, and heating Not hard at all [facility] Work Phone: Do you feel stress - tense, restless, nervous, or anxious, or unable to sleep at night because your mind is troubled all the time - these days [OSQ] Only a little [facility] Work Phone: (I/We) worried wheth er (my/our) food would run out before (I/we) got money to buy more. Never true [facility] Work Phone: Start: 10-12-2020 Gender identity Identifies as female gender (finding) [facility] Medical Equipment Procedure Code Equipment Code Equipment Original Text Equipment Identifier Dates [place] Thk1.65mm Rectangle Ptfe 4.5x6mm Cardiovascular [place] - [id number] Start: 06-15-2019 Clinical Notes 06-11-2019 to 11-07-2023 Telephone Encounter - Clara Valdez Ma - 11/07/2023 7:09 AM ESTPatient Carolin Lewis 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 SEISMOGRAPH - 09/06/2023 12:42 PM ESTLetter - [facility] - 08/27/2023 2:22 PM EST Note Date & Type Note Facility 11-07-2023 Miscellaneous Notes Most recent Rheumatology visit: 10/10/2023 (with Aleksandra Ghotra) Rheumatology Care Team: None on file Recent Office Visits - This Specialty 10/10/2023 Sjogren syndrome (HCC) Rheumatology Aleksandra Ghotra 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 SEISMOGRAPH 04/04/2023 Sjogren syndrome (HCC) Rheumatology Aleksandra Ghotra 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 SEISMOGRAPH 02/07/2022 Long-term use of Plaquenil Rheumatology Elsa Negron MD Upcoming Rheumatology Appointments - Next 365 Days Visit Type Date Time Department [facility] 09/17/2024 11:00 AM [facility] Last Ophthalmology Check for Plaquenil (Hydroxychloroquine) Last OCT Macula Exam No resulted procedures found. Last Visual Field Exam No resulted procedures found. CBC: None on file in the last 6 months Vitamin D: None on file in the last 6 months LFT: CMP Latest Ref Rng & Units 11/16/2022 05/21/2023 SODIUM 136 - 144 mmol/L 142 140 SODIUM, MARLEEN 132 - 148 mmol/L - - SODIUM, MARLEEN 132 - 148 mmol/L - - POTASSIUM 3.7 - 5.1 mmol/L 4.9 4.4 POTASSIUM, MARLEEN 3.5 - 5.0 mmol/L - - CHLORIDE 97 - 105 mmol/L 105 102 CHLORIDE, MARLEEN 98 - 110 mmol/L - - CO2 22 - 30 mmol/L 27 28 CO2, MARLEEN 23.0 - 32.0 mmol/L - - GLUCOSE 74 - 99 mg/dL 80 85 GLUCOSE (U), MARLEEN NEGAT mg/dL - - GLUCOSE, MARLEEN 65 - 100 mg/dL - - BUN 7 - 21 mg/dL 11 10 BUN, MARLEEN 10 - 25 mg/dL - - CREATININE 0.58 - 0.96 mg/dL 0.84 0.85 CREATININE, MARLEEN 0.7 - 1.4 mg/dL - - CALCIUM, MARLEEN 8.5 - 10.5 mg/dL - - CALCIUM, TOTAL 8.5 - 10.2 mg/dL 10.0 10.3(H) AST 13 - 35 U/L 27 29 AST, MARLEEN 7 - 40 U/L - - ALT 7 - 38 U/L 21 18 ALT, MARLEEN 0 - 45 U/L - - ALKALINE PHOSPHATASE 34 - 123 U/L 86 85 Hepatic Function: Creatinine: Creatinine Latest Ref Rng & Units 11/16/2022 05/21/2023 CREAT 0.58 - 0.96 mg/dL 0.84 0.85 ESR/CRP: None on file in the last 6 months Uric Acid: None on file in the last 6 months Open Standing (Multiple Instance) Lab Orders None Open Future (Single Instance) Lab Orders Expected Expires Ordered COMP METABOLIC PANEL [SQCMP] 03/07/24 06/06/24 09/06/23 Auth. provider: Carolin Blanca APRN.ZUHAIR Assoc. diagnoses: Coronary artery disease involving stebbins heart without angina pectoris, unspecified vessel or lesion type LIPID PANEL BASIC [SQLIPB] 03/07/24 06/06/24 09/06/23 Auth. provider: Carolin Blanca APRN.CNP Assoc. diagnoses: Coronary artery disease involving stebbins heart without angina pectoris, unspecified vessel or lesion type TSH BLD [SQTSH] 03/07/24 06/06/24 09/06/23 Auth. provider: Carolin Blanca APRN.CNP documented in this encounter [facility] 10-10-2023 Note HNO ID: [id number] Author: ALEKSANDRA GHOTRA APRN.CNP Service: ? Author Type: Nurse Practitioner Type: Progress Notes Filed: 10/10/2023 11:04 Note Text: Rheumatology FOLLOW UP VISIT Referring Provider: Date of Service: 10/10/2023 Gender: female Ethnicity: White Age: [age] year old Chief Complaint: Follow Up Last Rheumatology visit: 04/04/2023 (with Aleksandra Ghotra) Yanni Burroughs is a 72 year old White female who presents on 10/10/2023 for in person visit for evaluation of Follow Up. She is currently taking hydroxychloroquine sulfate. Yanni is both RF - 17 (06/22/2009) and CCP - 13.5 (09/11/2007) negative. Her most recent CHRISTINA was positive (09/11/2007). INTERVAL HISTORY Current treatment is Plaquenil 200 mg BID - and then 200 mg every day on weekend, + eye drops. Has dentures. Uses biotine rinses, drinks lot of water. eyes still so dry, does the eye drops has eye exam set. Sjogrens has been stable. Feels plaquenil is helpful more for jtn stiffness Patient-Entered Data RAPID 3 Dunbar Activities of Daily Living No Data Dress self? - Get in and out of bed? - Walk outdoors? - Wash and dry body? - Get in and out of car? - RAPID 3 Disease Activity Weighed Score Levels: 0 - 1: Near Remission 1.3 - 2.0: Low Severity 2.3 - 4.0: Moderate Severity 4.3 - 10.0: High Severity RAPID-3 Weighed Score 12/24/2017 07/15/2019 RAPID 3 Weighed Score 2.3 0.7 PROMIS Assessments PROMIS Global Health - (T-Scores - the mean of general population = 50. Five points is a clinically meaningful difference.) 12/24/2017 07/15/2019 04/19/2023 Physical T-Score 50.8 50.8 47.7 Mental T-Score 50.8 56 48.3 PROMIS CAT Pain Interference 04/19/2023 PROMIS Pain Interference T-Score (range: 10 - 90) 59 (mild) PROMIS Pain Interference Percentile 18% No flowsheet data found. PROMIS PHYSICAL FUNCTION T-SCORE 04/19/2023 PROMIS Physical Function T-Score 43 (mild dysfunction) Physical Function Percentile 24% Impression Diagnoses: (M35.00) Sjogren syndrome (HCC) (primary encounter diagnosis) Hepatitis B Antibody test: Negative (12/30/2017) At today's visit, the patient's disease appears to be: in remission Stable Sjogren's Plan (M35.00) Sjogren syndrome (HCC) (primary encounter diagnosis) Comment: Long standing Sjogrens, controlled on Plauqenil - continue same dosing Ok for refill Eye exam as set Discussed eye drops and oral lubrication Labs once per year Plan: Plaquenil monitoring Protocol: - CBC at baseline and periodically; liver function; muscle strength (especially proximal, as a symptom of neuromyopathy) during long-term therapy -Ophthalmologic exam at baseline (fundus examination within the first year plus visual mg and spectral-domain optical coherence tomography [SD OCT] if maculopathy is present) to screen for retinal toxicity, followed by annual screening beginning after 5 years of use (or sooner if major risk factors are present) (Nathalia [AAO 2016]). -Due to the risk of retinal toxicity, do not exceed a daily dose of 5 mg/kg/day using actual body weight or 400 mg (AAO [Evelinor 2016]; Plaquenil PI). Return in about 1 year (around 10/10/2024). I spent a total of 15 minutes on the date of the service which included preparing to see the patient, [id number] patient care, completing clinical documentation, obtaining and/or reviewing separately obtained history, performing a medically appropriate examination, and counseling and educating the patient/family/caregiver. Aleksandra Ghotra 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 SEISMOGRAPH cc: PCP: Ray Rivas [address] [place] [id number] Subjective HISTORY OF PRESENT ILLNESS Sjogrens- dry eyes , dry mouth CHRISTINA Positive: Yes Comments: + SSA, +SSB Treatment is Plaquenil INTERVAL HISTORY Current treatment is Plaquenil 200 mg BID - and then 200 mg every day on weekend, + eye drops. Has dentures. Uses biotine rinses, drinks lot of water. eyes still so dry, does the eye drops has eye exam set. Sjogrens has been stable. Feels plaquenil is helpful more for jtn stiffness Disease History PAIN EVALUATION No data found in the last 1 encounters. Objective Treatment History Relevant Previous Investigations CBC Latest Ref Rng AND Units 09/02/2019 09/08/2021 02/07/2022 11/16/2022 WBC 3.70 - 11.00 k/uL 4.89 4.38 3.54(L) 4.63 HGB 11.2 - 15.7 g/dL - - - - HEMOGLOBIN 11.5 - 15.5 g/dL 12.1 11.9 12.2 12.9 HEMOGLOBIN, MARLEEN 11.5 - 15.5 g/dL - - - - HEMATOCRIT 36.0 - 46.0 % 39.2 36.3 38.1 41.1 PLATELETS 150 - 400 k/uL 223 186 156 184 ABS NEUT (ANC) 1.45 - 7.50 k/uL - - 2.14 3.01 ABS NEUT, MARLEEN 1.45 - 7.50 k/uL - - - - ABS LYMP, MARLEEN 1.00 - 4.00 k/uL - - - - ABS LYMPH 1.00 - 4.00 k/uL - - 0.97(L) 1.17 CMP Latest Ref Rng AND Units 09/08/2021 02/07/2022 11/16/2022 05/21/2023 SODIUM 136 - 144 mmol/L 141 143 142 140 SODIUM, HERNANDEZ (more content not included)... [facility] 09-06-2023 Note HNO ID: [id number] Author: Carolin Blanca 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 SEISMOGRAPH Service: ? Author Type: Nurse Practitioner Type: Progress Notes Filed: 09/09/2023 7:09 AM Note Text: 09/06/2023 Patient presents with: F/U 6 months SUBJECTIVE: This is a 72 year old that is here today for Above Complaints. Since last office visit has been in good health without ER visits or hospitalizations. CABG: follows with [facility] with last visit in September. Has upcoming appointment in September scheduled. Denies SOB,dyspnea, chest pain, palpitations, or leg edema HYPOTHYROIDISM: taking synthroid as prescribed without side effects RA/Sjogren syndrome: following with rheumatology and eye doctor with last appointment on 04/04/2023. No medication changes at that time. Next follow-up scheduled for 10/10/2023. Taking plaquenil as prescribed. HYPERLIPIDEMIA: Patient is taking medications: Yes. Patient is watching diet: Yes. Patient denies myalgias: Yes. Patient denies gi upset: Yes She reports dermatology put her gabapentin for her chronic pruritus PAST MEDICAL HISTORY Diagnosis Date Anxiety Asthma cough variant BPPV (benign paroxysmal positional vertigo) CAD (coronary artery disease) 06/2019 s/p cabg x4. Dr. 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 Jose Hernandes Sjogren syndrome ([facility]) 07/25/2005 + SSA, + SSB, low + RF Sjogren's syndrome ([facility]) Vaginal dryness, menopausal Seeing Anju Dearborn ALLERGIES Doxycycline MEDICATIONS Current Outpatient Medications Medication Sig levothyroxine (SYNTHROID) 25 mcg tablet Take 1 tablet by mouth daily before breakfast. hydrOXYchloroQUINE (PLAQUENIL) 200 mg tablet Take one tablet twice daily - , the one daily once daily on Saturday and Saturday. sertraline (ZOLOFT) 25 mg tablet Take 1 tablet by mouth once daily. fluticasone (FLONASE) 50 mcg/actuation nasal spray Use 2 Sprays in each nostril once daily. Rinse mouth after use. atorvastatin (LIPITOR) 40 mg tablet Take 1 tablet by mouth daily at bedtime. hydrOXYzine pamoate (VISTARIL) 25 mg capsule May take 1-2 tablets three times a day as needed for itching amLODIPine (NORVASC) 2.5 mg tablet Take by mouth. Take one(1) tablet daily. therapeutic multivitamin w/ iron (THERAGRAN-M) 27-0.4 mg tablet Take 1 tablet by mouth once daily. fluticasone (FLONASE) 50 mcg/actuation nasal spray Use 2 Sprays in each nostril once daily. Rinse mouth after use. loratadine (CLARITIN) 10 mg tablet Take 1 tablet by mouth once daily. aspirin 81 mg chewable tablet Take 1 tablet by mouth once daily. Take 2 tabs of 81 mg for 1 month, then 1 tab there after, thanks. No current facility-administered medications for this visit. Medications and allergies reviewed by this provider. SOCIAL HISTORY Social History Tobacco Use Smoking status: Never Smokeless tobacco: Never Vaping Use Vaping Use: Never used Substance Use Topics Alcohol use: No Comment: occaisional maybe one a year Drug use: No Comment: no tattoos, no transfusions REVIEW OF SYSTEMS All other reviewed and negative other than HPI. OBJECTIVE: BP 118/76 Pulse 79 Resp 18 Wt 66.9 kg (147 lb 6.4 oz) SpO2 97% BMI 24.91 kg/m? . Vital signs reviewed by this provider. APPEARANCE Well appearing, alert, in no acute distress, well-hydrated, well nourished. EYES conjunctiva and sclera normal. EARS External ears normal, canals clear HEART RRR with normal S1 and S2, no murmurs, no gallops, no JVD appreciated LUNG clear to auscultation. No wheezes, rhonchi or rales EXTREMITIES Extremities normal, No deformities, No skin discoloration, and No edema SKIN Skin color, texture, turgor normal, no suspicious rashes or lesions Component Latest Ref Rng AND Units 05/21/2023 Protein, Total 6.3 - 8.0 g/dL 8.3 (H) Albumin 3.9 - 4.9 g/dL 4.8 Calcium 8.5 - 10.2 mg/dL 10.3 (H) Bilirubin, Total 0.2 - 1.3 mg/dL 0.4 Alkaline Phosphatase 34 - 123 U/L 85 AST 13 - 35 U/L 29 ALT 7 - 38 U/L 18 Glucose 74 - 99 mg/dL 85 BUN 7 - 21 mg/dL 10 Creatinine 0.58 - 0.96 mg/dL 0.85 Sodium 136 - 144 mmol/L 140 Potassium 3.7 - 5.1 mmol/L 4.4 Chloride 97 - 105 mmol/L 102 CO2 22 - 30 mmol/L 28 Anion Gap 9 - 18 mmol/L 10 eGFR >=60 mL/min/1.73mA? 73 Total Cholesterol, Nonfasting <200 mg/dL 136 Triglycerides, Nonfasting <150 mg/dL 69 HDL Cholesterol, Nonfasting >39 mg/dL 52 LDL Cholesterol, Nonfasting <100 mg/dL 70 Non HDL Cholesterol, Nonfasting <130 mg/dL 84 VLDL Cholesterol, Nonfasting <30 mg/dL 14 Total Chol/HDL Ratio, Nonfasting <5.10 mg/dL 2.62 LDL/HDL Ratio, Nonfasting <2.54 mg/dL 1.35 TSH 0.270 - 4.200 mIU/L 3.640 Covid-19 Vaccine(1) Never done Spirometry Never done RSV Vaccine(1 - 1-dose 60+ series) Never done Shingrix Vaccine(2 of 3) due on (more content not included)... [facility] 09-06-2023 Instructions Carolin Blanca 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 SEISMOGRAPH - 09/06/2023 1:41 PM EST Images from the original note were not included. Bowel Preparation Instructions for: Miralax-Gatorade Preparations IF YOU DO NOT FOLLOW THESE DIRECTIONS, YOUR COLONOSCOPY WILL BE CANCELLED. Dunbar Instructions: Your bowel must be empty so that your doctor can clearly view your colon. Follow all of the instructions in this handout EXACTLY as they are written. Do NOT eat any solid food the ENTIRE day before your colonoscopy. Buy your bowel preparation at least 5 days before your colonoscopy. Four (4) Dulcolax laxative tablets containing 5mg of bisacodyl each (NOT Dulcolax stool softener) One (1) 8.3oz. bottle Miralax (238 grams) or generic equivalent 2 x 32oz. Bottles of Gatorade (NOT RED) Diabetic Patients: Use G2 (Gatorade 2) TRANSPORTATION on the Day of Your Exam A responsible adult MUST be present with you at Check In prior to your colonoscopy and REMAIN in the endoscopy area until you are discharged. You are NOT ALLOWED to drive, take a taxi or bus, or leave the Endoscopy Center ALONE. If you do not have a responsible customer service driver (family member or friend) with you to take you home, your exam cannot be done with sedation and will be cancelled. Please bring a list of all of your current medications, including any Dszl-gno-Fkjheny medications with you. Medications If you take insulin, diabetic medications or blood thinners such as Coumadin (warfarin), Plavix (clopidogrel), Ticlid (ticlopidine hydrochloride), Agrylin (anagrelide), Xarelto (Rivaroxaban), Pradaxa (Dabigatran), Eliquis (Apixaban), and Effient (Prasugrel). You MUST call the doctors who orders those medicines for instructions on altering the dosage before your colonoscopy. All other medications should be taken the day of the exam with a sip of water including ASPIRIN. Five (5) Days Before Your Colonoscopy Do NOT take medicines that stop diarrhea - such as Imodium, Kaopectate, or Pepto Bismol. Do NOT take fiber supplements - such as Metamucil, Citrucel, or Perdiem. Do NOT take products that contain iron - such as multi-vitamins (the label lists what is in the products). Three (3) Days Before Your Colonoscopy Do NOT eat high-fiber foods - such as popcorn, beans, seeds (flax, sunflower, quinoa), multigrain bread, nuts, salad/vegetables, or fresh and dried fruit. 1 Bowel Preparation Instructions for: Miralax-Gatorade Preparations One (1) Day Before Your Colonoscopy Only drink clear liquids the ENTIRE DAY before your colonoscopy. Do NOT eat any solid foods. Drink at least 8 ounces of clear liquids every hour after waking up. The clear liquids you can drink include: Clear Liquid (NO RED LIQUIDS) DO NOT DRINK Gatorade, Pedialyte or Powerade Clear broth or bouillon Coffee or tea (no milk or non-dairy creamer) Carbonated and non-carbonated soft drinks Elliot-Aid or other fruit flavored drinks Strained fruit juices (no pulp) Jell-O, popsicles, hard candy Water Alcohol Milk or non-dairy creamers Noodles or vegetables in soup Juice with pulp Liquid you cannot see through Do not use tobacco/vaping products Mix 1/2 of Miralax bottle (119 grams) in each 32 ounces of Gatorade bottle until dissolved. Keep cool in the refrigerator. DO NOT ADD ICE. The bowel preparation solution will be consumed in two parts. Part 1 5:00 PM - Evening before your colonoscopy Take 4 Dulcolax tablets. 6 PM - Evening before your colonoscopy Drink 32 oz. of the mixed solution. Drink an 8 oz. glass of bowel preparation every 15 minutes for a total of 4 glasses. Fifteen (15) minutes later, drink an 8 oz. glass of of clear liquids every 15 minutes for a total of 2 glasses. You may continue to drink clear liquids till midnight. Part 2 On the day of your colonoscopy you may drink clear liquids up to (three) 3 hours prior to procedure. 4 1/2 hours before your colonoscopy Take another 32 oz. bottle of mixed solution. Drink an 8 oz. glass of bowel prep every 15 minutes for a total of 4 glasses. Fifteen (15) minutes later, drink an 8 oz. glass of clear liquids every 15 minutes for a total of 2 glasses. You may continue to drink clear liquids up to (three) 3 hours before your exam. 2 08/2019 documented in this encounter [facility] 09-06-2023 History of Present illness Narrative 09/06/2023 Patient presents with: F/U 6 months SUBJECTIVE: This is a 72 year old that is here today for Above Complaints. Since last office visit has been in good health without ER visits or hospitalizations. CABG: follows with [facility] with last visit in September. Has upcoming appointment in September scheduled. Denies SOB,dyspnea, chest pain, palpitations, or leg edema HYPOTHYROIDISM: taking synthroid as prescribed without side effects RA/Sjogren syndrome: following with rheumatology and eye doctor with last appointment on 04/04/2023. No medication changes at that time. Next follow-up scheduled for 10/10/2023. Taking plaquenil as prescribed. HYPERLIPIDEMIA: Patient is taking medications: Yes. Patient is watching diet: Yes. Patient denies myalgias: Yes. Patient denies gi upset: Yes She reports dermatology put her gabapentin for her chronic pruritus PAST MEDICAL HISTORY Diagnosis Date Anxiety Asthma cough variant BPPV (benign paroxysmal positional vertigo) CAD (coronary artery disease) 06/2019 s/p cabg x4. Dr. 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 Jose Hernandes Sjogren syndrome ([facility]) 07/25/2005 + SSA, + SSB, low + RF Sjogren's syndrome ([facility]) Vaginal dryness, menopausal Seeing Anju Nell ALLERGIES Doxycycline MEDICATIONS Current Outpatient Medications Medication Sig levothyroxine (SYNTHROID) 25 mcg tablet Take 1 tablet by mouth daily before breakfast. hydrOXYchloroQUINE (PLAQUENIL) 200 mg tablet Take one tablet twice daily - , the one daily once daily on Saturday and Saturday. sertraline (ZOLOFT) 25 mg tablet Take 1 tablet by mouth once daily. fluticasone (FLONASE) 50 mcg/actuation nasal spray Use 2 Sprays in each nostril once daily. Rinse mouth after use. atorvastatin (LIPITOR) 40 mg tablet Take 1 tablet by mouth daily at bedtime. hydrOXYzine pamoate (VISTARIL) 25 mg capsule May take 1-2 tablets three times a day as needed for itching amLODIPine (NORVASC) 2.5 mg tablet Take by mouth. Take one(1) tablet daily. therapeutic multivitamin w/ iron (THERAGRAN-M) 27-0.4 mg tablet Take 1 tablet by mouth once daily. fluticasone (FLONASE) 50 mcg/actuation nasal spray Use 2 Sprays in each nostril once daily. Rinse mouth after use. loratadine (CLARITIN) 10 mg tablet Take 1 tablet by mouth once daily. aspirin 81 mg chewable tablet Take 1 tablet by mouth once daily. Take 2 tabs of 81 mg for 1 month, then 1 tab there after, thanks. No current facility-administered medications for this visit. Medications and allergies reviewed by this provider. SOCIAL HISTORY Social History Tobacco Use Smoking status: Never Smokeless tobacco: Never Vaping Use Vaping Use: Never used Substance Use Topics Alcohol use: No Comment: occaisional maybe one a year Drug use: No Comment: no tattoos, no transfusions REVIEW OF SYSTEMS All other reviewed and negative other than HPI. OBJECTIVE: BP 118/76 Pulse 79 Resp 18 Wt 66.9 kg (147 lb 6.4 oz) SpO2 97% BMI 24.91 kg/m . Vital signs reviewed by this provider. APPEARANCE Well appearing, alert, in no acute distress, well-hydrated, well nourished. EYES conjunctiva and sclera normal. EARS External ears normal, canals clear HEART RRR with normal S1 and S2, no murmurs, no gallops, no JVD appreciated LUNG clear to auscultation. No wheezes, rhonchi or rales EXTREMITIES Extremities normal, No deformities, No skin discoloration, and No edema SKIN Skin color, texture, turgor normal, no suspicious rashes or lesions Component Latest Ref Rng & Units 05/21/2023 Protein, Total 6.3 - 8.0 g/dL 8.3 (H) Albumin 3.9 - 4.9 g/dL 4.8 Calcium 8.5 - 10.2 mg/dL 10.3 (H) Bilirubin, Total 0.2 - 1.3 mg/dL 0.4 Alkaline Phosphatase 34 - 123 U/L 85 AST 13 - 35 U/L 29 ALT 7 - 38 U/L 18 Glucose 74 - 99 mg/dL 85 BUN 7 - 21 mg/dL 10 Creatinine 0.58 - 0.96 mg/dL 0.85 Sodium 136 - 144 mmol/L 140 Potassium 3.7 - 5.1 mmol/L 4.4 Chloride 97 - 105 mmol/L 102 CO2 22 - 30 mmol/L 28 Anion Gap 9 - 18 mmol/L 10 eGFR >=60 mL/min/1.73m 73 Total Cholesterol, Nonfasting <200 mg/dL 136 Triglycerides, Nonfasting <150 mg/dL 69 HDL Cholesterol, Nonfasting >39 mg/dL 52 LDL Cholesterol, Nonfasting <100 mg/dL 70 Non HDL Cholesterol, Nonfasting <130 mg/dL 84 VLDL Cholesterol, Nonfasting <30 mg/dL 14 Total Chol/HDL Ratio, Nonfasting <5.10 mg/dL 2.62 LDL/HDL Ratio, Nonfasting <2.54 mg/dL 1.35 TSH 0.270 - 4.200 mIU/L 3.640 Covid-19 Vaccine(1) Never done Spirometry Never done RSV Vaccine(1 - 1-dose 60+ series) Never done Shingrix Vaccine(2 of 3) due on 11/02/2013 Advance Directive Discussion Never done DTaP,Tdap,Td Vaccine(2 - Td or Tdap) due on 03/16/2023 Influenza Vaccine(1) due on 05/31/2023 Colorectal Cancer Screening due on 06/22/2023 LDL Cholesterol due on 05/21/2024 Mammogram Screening due on 08/26/2024 Annual PCP Team Chronic Disease Visit due on 09/06/2024 Diabetes Screening due on 05/21/2026 Lipid Screening due on 05/21/2028 Bone Density Screening Completed Hepatitis C Screening Completed Pneumococcal Vaccine: 65+ Completed ASSESSMENT/PLAN: 1. Hypothyroidism, acquired - ICD9: 244.9, ICD10: E03.9 (primary diagnosis) - Instructed patient on importance of taking on an empty stomach either first thing in the morning or at bedtime. - continue current dose of Synthroid 0.025 mg - TSH BLD - Follow up in 6 months 2. Screening for colon cancer - ICD9: V76.51, ICD10: Z12.11 - COLONOSCOPY SCREENING 3. Coronary artery disease involving stebbins heart without angina pectoris, unspecified vessel or lesion type - ICD9: 414.01, ICD10: I25.10 - stable - continue current medications - COMP METABOLIC PANEL - LIPID PANEL BASIC - follow-up with cardiology as scheduled 4. Rheumatoid arthritis, involving unspecified site, unspecified whether rheumatoid factor present (HCC) - ICD9: 714.0, ICD10: M06.9 - follow-up with rheumatology as scheduled 5. Major depressive disorder, recurrent, in partial remission (HCC) - ICD9: 296.35, ICD10: F33.41 - stable - continue Zoloft as prescribed 6. S/P CABG (coronary artery bypass graft) - ICD9: V45.81, ICD10: Z95.1 - plan as in #3 7. Pruritus - ICD9: 698.9, ICD10: L29.9 - follow-up with dermatology as recommended Carolin Blanca 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 SEISMOGRAPH Prescription instructions reviewed with patient as applicable. Patient advised if symptoms do not improve or if symptoms worsen sooner, to contact their primary care physician. Potential red flag symptoms discussed with the patient. Reviewed appropriate action plan to take if red flag symptoms occur. Patient agreeable to treatment plan. I spent a total of 25 minutes on the date of the service which included preparing to see the patient, [id number] patient care, completing clinical documentation, obtaining and/or reviewing separately obtained history, performing a medically appropriate examination, counseling and educating the patient/family/caregiver, and ordering medications, tests, or procedures. documented in this encounter [facility] 09-05-2023 Note HNO ID: [id number] Author: Reuben Population Health NavigTrena wilson Service: ? Author Type: ? Type: Progress Notes Filed: 09/05/2023 3:01 PM Note Text: POPULATION HEALTH NAVIGATION OUTREACH Action/ [place] med adherence 2nd callback outcome- atorvastatin medication- lvm medication is due for refill on 09-06-23 per [facility]. Patient Identified by Name and : NO Outreach Outcome/Action Unable to reach patient: Left message Did you use a PCP flex slot to schedule this appointment? N/A Navigation Signature: Trena Rowley Population Health Navigator September 05, 2023 12:11 PM [facility] 09-03-2023 Note Patient Outreach (NE TNAV) YANNI BURROUGHS ([id number]) 1950 F Date Time Provider Department 09/03/23 TRENA ROWLEY During your visit today, we recorded the following information about you: Reuben [facility] Trena Abraham 09/03/2023 10:40 AM Signed POPULATION HEALTH NAVIGATION OUTREACH Action/ [place] med adherence Outcome- medication Atorvastatin due for refill 09-06-23 per [facility] portal Lvm/sent [employer] regarding reminder to refill Patient Identified by Name and : NO Outreach Outcome/Action Unable to reach patient: Left message [employer] message sent Did you use a PCP flex slot to schedule this appointment? N/A Reason for Outreach Med Adherence Payer: Payor: MELISSA [employer] [facility] [place] / Plan: [employer] HMO / Product Type: HMO / Care Gap Reviewed:: N/A Reminder: Reminder note to check Health Maintenance for items below Health Maintenance items due: Covid-19 Vaccine(1) Never done Spirometry Never done RSV Vaccine(1 - 1-dose 60+ series) Never done Shingrix Vaccine(2 of 3) due on 11/02/2013 Advance Directive Discussion Never done DTaP,Tdap,Td Vaccine(2 - Td or Tdap) due on 03/16/2023 Influenza Vaccine(1) due on 05/31/2023 Colorectal Cancer Screening due on 06/22/2023 Navigation Signature: Trena Rowley Population Health Navigkatie September 03, 2023 10:31 AM [facility] Trena Abraham 09/05/2023 3:01 PM Signed POPULATION HEALTH NAVIGATION OUTREACH Action/FYI [place] med adherence 2nd callback outcome- atorvastatin medication- lvm medication is due for refill on 09-06-23 per [facility]. Patient Identified by Name and : NO Outreach Outcome/Action Unable to reach patient: Left message Did you use a PCP flex slot to schedule this appointment? N/A Navigation Signature: Trena Rowley Population Health Navigator September 05, 2023 12:11 PM Allergies As of Date: 09/03/2023 Noted Allergy Reaction DOXYCYCLINE 04/11/2005 8 - GI Upset Comments: esophagitis Date Reviewed: 03/06/2023 Reviewed by: Carlota Jimenez LPN - Fully Assessed Reason for Visit: Population Health Navigation Outreach [3910] Cmt: [facility] med adherence Prescriptions as of 09/05/2023 - levothyroxine (SYNTHROID) 25 mcg tablet Take 1 tablet by mouth daily before breakfast. - hydrOXYchloroQUINE (PLAQUENIL) 200 mg tablet Take one tablet twice daily - , the one daily once daily on Saturday and Saturday. - sertraline (ZOLOFT) 25 mg tablet Take 1 tablet by mouth once daily. - fluticasone (FLONASE) 50 mcg/actuation nasal spray Use 2 Sprays in each nostril once daily. Rinse mouth after use. - atorvastatin (LIPITOR) 40 mg tablet Take 1 tablet by mouth daily at bedtime. - hydrOXYzine pamoate (VISTARIL) 25 mg capsule May take 1-2 tablets three times a day as needed for itching - amLODIPine (NORVASC) 2.5 mg tablet Take by mouth. Take one(1) tablet daily. - therapeutic multivitamin w/ iron (THERAGRAN-M) 27-0.4 mg tablet Take 1 tablet by mouth once daily. - fluticasone (FLONASE) 50 mcg/actuation nasal spray Use 2 Sprays in each nostril once daily. Rinse mouth after use. - loratadine (CLARITIN) 10 mg tablet Take 1 tablet by mouth once daily. - aspirin 81 mg chewable tablet Take 1 tablet by mouth once daily. Take 2 tabs of 81 mg for 1 month, then 1 tab there after, thanks. 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] 03/28/2012 Depression [F32.A] 01/01/2013 Sjogren's syndrome with keratoconjunctivitis si*10/09/2013 Neuroma [D36.10] 05/28/2014 Vertigo [R42] 11/01/2014 12/13/2016 BPPV (benign paroxysmal positional vertigo) [H8*11/25/2014 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*06/02/2015 Digital mucous cyst [M67.449] 12/05/2015 Other specified rheumatoid arthritis, multiple *12/15/2015 01/02/2018 GERD (gastroesophageal reflux disease) [K21.9] 12/15/2015 Acquired hypothyroidism [E03.9] 08/25/2016 RA (rheumatoid arthritis) ([facility]) [M06.9] Mild intermittent asthma with acute exacerbatio*07/17/2017 Chronic pain of right knee [M25.561, G89.29] 05/18/2019 Chest pain [R07.9] 06/11/2019 06/19/2019 S/P CABG (coronary artery bypass graft) [Z95.1] 07/13/2019 Hx of CABG [Z95.1] CAD (coronary artery disease) [I25.10] Long-term use of Plaquenil [Z79.899] 08/05/2020 Pleural effusion [J90] 08/05/2020 Major depressive disorder, recurrent, in partia*03/06/2023 Chronic midline low back p (more content not included)... [facility] 09-03-2023 Note HNO ID: [id number] Author: Reuben Population Health NavigatorTrena Service: ? Author Type: ? Type: Progress Notes Filed: 09/03/2023 10:40 AM Note Text: POPULATION HEALTH NAVIGATION OUTREACH Action/ [place] med adherence Outcome- medication Atorvastatin due for refill 09-06-23 per [employer] [facility] Lvm/sent mychart regarding reminder to refill Patient Identified by Name and : NO Outreach Outcome/Action Unable to reach patient: Left message MyChart message sent Did you use a PCP flex slot to schedule this appointment? N/A Reason for Outreach Med Adherence Payer: Payor: C[employer] Route / Plan: [employer] HMO / Product Type: HMO / Care Gap Reviewed:: N/A Reminder: Reminder note to check Health Maintenance for items below Health Maintenance items due: Covid-19 Vaccine(1) Never done Spirometry Never done RSV Vaccine(1 - 1-dose 60+ series) Never done Shingrix Vaccine(2 of 3) due on 11/02/2013 Advance Directive Discussion Never done DTaP,Tdap,Td Vaccine(2 - Td or Tdap) due on 03/16/2023 Influenza Vaccine(1) due on 05/31/2023 Colorectal Cancer Screening due on 06/22/2023 Navigation Signature: Trena Rowley Population Health Navigator September 03, 2023 10:31 AM [facility] 09-03-2023 History of Present illness Narrative POPULATION HEALTH NAVIGATION OUTREACH Action/ [place] med adherence Outcome- medication Atorvastatin due for refill 09-06-23 per [employer] Lvm/sent mychart regarding reminder to refill Patient Identified by Name and : NO Outreach Outcome/Action Unable to reach patient: Left message MyChart message sent Did you use a PCP flex slot to schedule this appointment? N/A Reason for Outreach Med Adherence Payer: Payor: Cube Route / Plan: [employer] HMO / Product Type: HMO / Care Gap Reviewed:: N/A Reminder: Reminder note to check Health Maintenance for items below Health Maintenance items due: Covid-19 Vaccine(1) Never done Spirometry Never done RSV Vaccine(1 - 1-dose 60+ series) Never done Shingrix Vaccine(2 of 3) due on 11/02/2013 Advance Directive Discussion Never done DTaP,Tdap,Td Vaccine(2 - Td or Tdap) due on 03/16/2023 Influenza Vaccine(1) due on 05/31/2023 Colorectal Cancer Screening due on 06/22/2023 Navigation Signature: Trena Rowley [facility] Navigator September 03, 2023 10:31 AM Electronically signed [facility] Trena Dickerson at 09/03/2023 10:40 AM EST documented in this encounter [facility] 08-27-2023 Miscellaneous Notes August 28, 2023 PID: [id number] Yanni Monsivais Arturo [address] [place] [address] Dear Amelia Arturo, We are pleased to inform you that the results of your recent breast imaging exam on 08/26/2023 are normal. Early detection of cancer is very important. We also understand recommendations regarding breast cancer screening are controversial. Please discuss with your primary care provider which strategy is best for you and whether a mammogram is right for you. Your imaging studies and report will be kept on file at [facility] as part of your permanent medical record and are available for your continuing care. Thank you for allowing us to help in meeting your health care needs. Sincerely, Dr. Tse Interpreting Radiologist [facility] (Normal over 40) documented in this encounter [facility] 07-31-2023 Miscellaneous Notes PSS, please contact patient to schedule. Thank you! Hui Richardson MA Order approved. Patient requesting mammogram order be placed, for yearly screening. Please call patient once order placed to assist pt with scheduling. Thank you. documented in this encounter [facility] 05-27-2023 Note HNO ID: [id number] Author: Romina Santos PT Service: ? Author Type: Physical Therapist Type: Progress Notes Filed: 07/03/2023 8:55 AM Note Text: 07/03/2023 [facility] REHABILITATION AND SPORTS THERAPY PHYSICAL THERAPY DISCONTINUANCE OF CARE Plan of Care Period: Start of Care Date: 04/19/23 Last Visit Date: 05/27/2023 Therapy Program: The following is a summary of the interventions provided for this episode of care; Therapeutic exercise, Neuromuscular re-education, and Self-shelter management Assessment: The following is the goal status: Goals for Episode of Care: created on 04/19/23 through 05/31/23 Goals updated on 05/27/2023 through 07/01/23 Independent in home exercises. -- MET Patient will decrease pain rating by 2 points to meet minimal clinical important difference for numeric pain rating scale. -- MET Restore pain-free lumbar ROM to minimal to no limitation extension and side flexion each direction to allow for transitional movements. -- MET Stand / Walk 45-60 min without pain/symptoms. -- MET Sit 1-2 hours without pain/symptoms to allow for seated activities without increased symptoms -- MET Maintain proper sitting posture throughout session -- MET Patient will be able to tolerate functional activities for 1 to 1.5 hours without increased symptoms. -- MET Patient Goals: reduce low back pain with bending, cleaning, and prolonged sitting/standing activities -- MET Based on the most recent progress report, patient was progressing as expected toward functional goals based on documented subjective information on progress. Reason for Discontinuation of Care: Patient has not returned to therapy or scheduled additional follow-up appointments. Romina Santos, PT Episode Visit Count: 7 Therapist That Will Accept/Oversee The Plan Of Care: Romina Santos Start of Care Date: 04/19/23 Onset Date: 10/20/22 Plan of Care Certification Date: 05/27/23 Next Certification Due Date: 07/01/23 REHABILITATION AND SPORTS THERAPY PHYSICAL THERAPY PROGRESS REPORT PLAN OF CARE UPDATE: Assessment: Yanni Burroughs demonstrates significant improvement in sitting, standing, walking, bending, physical activities, and recreational activities . She has met all goals. Patient continues to present with impairments in strength that interfere with anti ortation on the right side . Current prognosis is Good due to: current objective clinical presentation, good overall health status, positive past response to therapy, good support system/ coping skills good She will benefit from continued skilled therapy services to meet the updated goals for this plan of care as noted below. Goals for Episode of Care: created on 04/19/23 through 05/31/23 Goals updated on 05/27/2023 through 07/01/23 Independent in home exercises. -- MET Patient will decrease pain rating by 2 points to meet minimal clinical important difference for numeric pain rating scale. -- MET Restore pain-free lumbar ROM to minimal to no limitation extension and side flexion each direction to allow for transitional movements. -- MET Stand / Walk 45-60 min without pain/symptoms. -- MET Sit 1-2 hours without pain/symptoms to allow for seated activities without increased symptoms -- MET Maintain proper sitting posture throughout session -- MET Patient will be able to tolerate functional activities for 1 to 1.5 hours without increased symptoms. -- MET Patient Goals: reduce low back pain with bending, cleaning, and prolonged sitting/standing activities -- MET Planned Interventions, Frequency, and Duration: 1x/week, 5 weeks Total Number of Visits Planned: 5 Patient to be seen for Therapeutic exercise (45657), Neuromuscular re-education (58200), Manual therapy (22163), Therapeutic activities (55267), Self-shelter management (19356), Gait Training (91713), Patient/Family/Caregiver Education PLAN FOR NEXT VISIT: Follow up in 5 weeks if needed. SUBJECTIVE: Pt. reports no change in pain over weekend. Pt. shoveled outside without any increase in pain. Pain: Pain Pain Level: 0 Pain Location: Low Back/Lumbar Spine- Midline Post Treatment Pain Post Treatment Pain Level: 0 Post Treatment Pain Location: Low Back/Lumbar Spine- Midline PROMIS Scales Higher is Better 04/19/2023 Phys Func - Score 43 (mild dysfunction) Phys Func - Percentile 24 % Self-Eff Symptom - Score 45 (Average) Self-Eff Symptom - Percentile 31 % T-scores: mean of general population = 50. 5 points is clinically meaningfully difference Percentiles provide an indication of how the patient's score ranks in relation to the general population. Higher percentile rankings indicate better function/quality of life. 50th percentile is the average of the general population and indicates half of respondents had a worse score. OBJECTIVE MEASURES WITH LEVEL OF FUNCTION: Lumbar Spine AROM Lumbar Flexion: Normal Lumbar Extension: Minimal limit (more content not included)... [facility] 05-27-2023 Miscellaneous Notes Patient phones requesting refills as follows: Requested Prescriptions Pending Prescriptions Disp Refills levothyroxine (SYNTHROID) 25 mcg tablet 90 tablet 3 Sig: Take 1 tablet by mouth daily before breakfast. FIONA-03/06/23 Labs-05/21/23 NOV-09/06/23 Please review and advise. Rosa Maria Leonardo LPN documented in this encounter [facility] 05-27-2023 History of Present illness Narrative Episode Visit Count: 7 Therapist That Will Accept/Oversee The Plan Of Care: Romina Santos Start of Care Date: 04/19/23 Onset Date: 10/20/22 Plan of Care Certification Date: 05/27/23 Next Certification Due Date: 07/01/23 REHABILITATION AND SPORTS THERAPY PHYSICAL THERAPY PROGRESS REPORT PLAN OF CARE UPDATE: Assessment: Yanni Burroughs demonstrates significant improvement in sitting, standing, walking, bending, physical activities, and recreational activities . She has met all goals. Patient continues to present with impairments in strength that interfere with anti ortation on the right side . Current prognosis is Good due to: current objective clinical presentation, good overall health status, positive past response to therapy, good support system/ coping skills good She will benefit from continued skilled therapy services to meet the updated goals for this plan of care as noted below. Goals for Episode of Care: created on 04/19/23 through 05/31/23 Goals updated on 05/27/2023 through 07/01/23 Independent in home exercises. -- MET Patient will decrease pain rating by 2 points to meet minimal clinical important difference for numeric pain rating scale. -- MET Restore pain-free lumbar ROM to minimal to no limitation extension and side flexion each direction to allow for transitional movements. -- MET Stand / Walk 45-60 min without pain/symptoms. -- MET Sit 1-2 hours without pain/symptoms to allow for seated activities without increased symptoms -- MET Maintain proper sitting posture throughout session -- MET Patient will be able to tolerate functional activities for 1 to 1.5 hours without increased symptoms. -- MET Patient Goals: reduce low back pain with bending, cleaning, and prolonged sitting/standing activities -- MET Planned Interventions, Frequency, and Duration: 1x/week, 5 weeks Total Number of Visits Planned: 5 Patient to be seen for Therapeutic exercise (33321), Neuromuscular re-education (03288), Manual therapy (34599), Therapeutic activities (93970), Self-shelter management (47164), Gait Training (67831), Patient/Family/Caregiver Education PLAN FOR NEXT VISIT: Follow up in 5 weeks if needed. SUBJECTIVE: Pt. reports no change in pain over weekend. Pt. shoveled outside without any increase in pain. Pain: Pain Pain Level: 0 Pain Location: Low Back/Lumbar Spine- Midline Post Treatment Pain Post Treatment Pain Level: 0 Post Treatment Pain Location: Low Back/Lumbar Spine- Midline PROMIS Scales Higher is Better 04/19/2023 Phys Func - Score 43 (mild dysfunction) Phys Func - Percentile 24 % Self-Eff Symptom - Score 45 (Average) Self-Eff Symptom - Percentile 31 % T-scores: mean of general population = 50. 5 points is clinically meaningfully difference Percentiles provide an indication of how the patient's score ranks in relation to the general population. Higher percentile rankings indicate better function/quality of life. 50th percentile is the average of the general population and indicates half of respondents had a worse score. OBJECTIVE MEASURES WITH LEVEL OF FUNCTION: Lumbar Spine AROM Lumbar Flexion: Normal Lumbar Extension: Minimal limitation Lumbar R Side-Bend: Normal Lumbar L Side-Bend: Normal Lumbar R Rotation: Normal Lumbar L Rotation: Normal TREATMENT: Therapeutic Exercise: 1: SciFit level 2.0, 5 minutes, seat 12, 1:1 throughout, subjective collected (discussed HEP compliance) 2: hoist backwards walk out 2x5 3: hoist side step walk outs 1x4 DC due to difficulty 4: Hoist stir the pot plate 1 3x10 both directions both CCW & CW 5: TA activation on 65 cm yoga ball 2x15 6: pallov press on 65 cm yoga ball with green band 2x10 each side Skilled Intervention: Patient was educated in proper exercise technique and purpose for exercises. Reviewed and educated patient on additions/changes for home exercise program as above (*). Skilled judgment was provided in selection of appropriate interventions. Correct performance of therapeutic exercises was facilitated with verbal, visual, and tactile cuing. Patient education as noted. Billing Therapeutic Exercise Treatment Minutes: 40 Total Treatment Time Minutes (timed/untimed): 40 Session Start Time : 1230 Session Stop Time : 1310 Romina Santos PT documented in this encounter [facility] 05-20-2023 Note HNO ID: [id number] Author: Romina Santos PT Service: ? Author Type: Physical Therapist Type: Progress Notes Filed: 05/20/2023 1:06 PM Note Text: Episode Visit Count: 6 Therapist That Will Accept/Oversee The Plan Of Care: Romina Santos Start of Care Date: 04/19/23 Onset Date: 10/20/22 Plan of Care Certification Date: 04/19/23 Next Certification Due Date: 05/24/23 REHABILITATION AND SPORTS THERAPY PHYSICAL THERAPY TREATMENT NOTE ASSESSMENT: Yanni Burroughs tolerated the session with no issues. She demonstrated difficulty with stir the pot exercise, more weakness on the right side as compared to the left side of the trunk with anti-rotational resistance. The patient will continue to benefit from ongoing skilled physical therapy to progress toward set goals. PLAN FOR NEXT VISIT: PN -- discuss possible continued visits 1x/wk SUBJECTIVE: No question with exercises. No increase in pain. Pain: Pain Pain Level: 0 Pain Location: Low Back/Lumbar Spine- Midline Post Treatment Pain Post Treatment Pain Level: 0 Post Treatment Pain Location: Low Back/Lumbar Spine- Midline OBJECTIVE MEASURES WITH LEVEL OF FUNCTION: TREATMENT: Therapeutic Exercise: 1: SciFit level 2.0, 5 minutes, seat 12, 1:1 throughout, subjective collected (discussed HEP compliance) 2: hoist SLS with toe touch supportTA pull down, plate 2, 2 sets of 15 each LE 3: hoist stir the pot plate 1 3 sets of 10x CW + 10x CCW each side (tactile cues at shoulder to avoid trunk rotation) 4: hook lying TA activation with LE marches 2x10 7: single leg stance with toe touch support paloff press pink elastic band 3x15 each side Skilled Intervention: Patient was educated in proper exercise technique and purpose for exercises. Skilled judgment was provided in selection of appropriate interventions. Correct performance of therapeutic exercises was facilitated with verbal, visual, and tactile cuing. Patient education as noted. Billing Therapeutic Exercise Treatment Minutes: 40 Total Treatment Time Minutes (timed/untimed): 40 Session Start Time : 1225 Session Stop Time : 1305 Romina Santos, PT [facility] 05-20-2023 History of Present illness Narrative Episode Visit Count: 6 Therapist That Will Accept/Oversee The Plan Of Care: Romina Santos Start of Care Date: 04/19/23 Onset Date: 10/20/22 Plan of Care Certification Date: 04/19/23 Next Certification Due Date: 05/24/23 REHABILITATION AND SPORTS THERAPY PHYSICAL THERAPY TREATMENT NOTE ASSESSMENT: Yanni Burroughs tolerated the session with no issues. She demonstrated difficulty with stir the pot exercise, more weakness on the right side as compared to the left side of the trunk with anti-rotational resistance. The patient will continue to benefit from ongoing skilled physical therapy to progress toward set goals. PLAN FOR NEXT VISIT: PN -- discuss possible continued visits 1x/wk SUBJECTIVE: No question with exercises. No increase in pain. Pain: Pain Pain Level: 0 Pain Location: Low Back/Lumbar Spine- Midline Post Treatment Pain Post Treatment Pain Level: 0 Post Treatment Pain Location: Low Back/Lumbar Spine- Midline OBJECTIVE MEASURES WITH LEVEL OF FUNCTION: TREATMENT: Therapeutic Exercise: 1: SciFit level 2.0, 5 minutes, seat 12, 1:1 throughout, subjective collected (discussed HEP compliance) 2: hoist SLS with toe touch supportTA pull down, plate 2, 2 sets of 15 each LE 3: hoist stir the pot plate 1 3 sets of 10x CW + 10x CCW each side (tactile cues at shoulder to avoid trunk rotation) 4: hook lying TA activation with LE marches 2x10 7: single leg stance with toe touch support paloff press pink elastic band 3x15 each side Skilled Intervention: Patient was educated in proper exercise technique and purpose for exercises. Skilled judgment was provided in selection of appropriate interventions. Correct performance of therapeutic exercises was facilitated with verbal, visual, and tactile cuing. Patient education as noted. Billing Therapeutic Exercise Treatment Minutes: 40 Total Treatment Time Minutes (timed/untimed): 40 Session Start Time : 1225 Session Stop Time : 1305 Romina Santos PT documented in this encounter [facility] 05-15-2023 Note HNO ID: [id number] Author: Romina Santos PT Service: ? Author Type: Physical Therapist Type: Progress Notes Filed: 05/15/2023 12:38 PM Note Text: Episode Visit Count: 5 Therapist That Will Accept/Oversee The Plan Of Care: Romina Santos Start of Care Date: 04/19/23 Onset Date: 10/20/22 Plan of Care Certification Date: 04/19/23 Next Certification Due Date: 05/24/23 REHABILITATION AND SPORTS THERAPY PHYSICAL THERAPY TREATMENT NOTE ASSESSMENT: Yanni Burroughs tolerated the session with no issues. She demonstrated difficulty with avoiding trunk rotation with stir the pot and paloff press exercises, improved with tactile cues and repeated reps. The patient will continue to benefit from ongoing skilled physical therapy to progress toward set goals. PLAN FOR NEXT VISIT: BLE NBOS TA pull down with bands. Consider reducing frequency of visits if pt. continues to report self management of symptoms with HEP SUBJECTIVE: She no longer has pain with turning. Denies pain today. Pain: Pain Pain Level: 0 Pain Location: Low Back/Lumbar Spine- Midline Post Treatment Pain Post Treatment Pain Level: No Change Post Treatment Pain Location: Low Back/Lumbar Spine- Midline OBJECTIVE MEASURES WITH LEVEL OF FUNCTION: TREATMENT: Therapeutic Exercise: 1: SciFit level 2.0, 5 minutes, seat 12, 1:1 throughout, subjective collected 2: hoist standing TA pull down, plate 2, 4 sets of 12, 1 min rest between each set 3: hoist stir the pot plate 1 3 sets of 10x CW + 10x CCW each side 4: hook lying TA activation 2x10 5: bugs 3x40 sec 6: hooklying B KTC stretch 3x30 sec 7: standing paloff press pink elastic band 3x15 each side Skilled Intervention: Patient was educated in proper exercise technique and purpose for exercises. Skilled judgment was provided in selection of appropriate interventions. Correct performance of therapeutic exercises was facilitated with verbal, visual, and tactile cuing. Educated patient on rationale for performing exercises in regards to decreasing fatigue , increase ease of ADL, and ROM and function . Patient education as noted. Billing Therapeutic Exercise Treatment Minutes: 40 Total Treatment Time Minutes (timed/untimed): 40 Session Start Time : 1200 Session Stop Time : 1240 Romina Santos, PT [facility] 05-15-2023 History of Present illness Narrative Episode Visit Count: 5 Therapist That Will Accept/Oversee The Plan Of Care: Romina Santos Start of Care Date: 04/19/23 Onset Date: 10/20/22 Plan of Care Certification Date: 04/19/23 Next Certification Due Date: 05/24/23 REHABILITATION AND SPORTS THERAPY PHYSICAL THERAPY TREATMENT NOTE ASSESSMENT: Yanni Burroughs tolerated the session with no issues. She demonstrated difficulty with avoiding trunk rotation with stir the pot and paloff press exercises, improved with tactile cues and repeated reps. The patient will continue to benefit from ongoing skilled physical therapy to progress toward set goals. PLAN FOR NEXT VISIT: BLE NBOS TA pull down with bands. Consider reducing frequency of visits if pt. continues to report self management of symptoms with HEP SUBJECTIVE: She no longer has pain with turning. Denies pain today. Pain: Pain Pain Level: 0 Pain Location: Low Back/Lumbar Spine- Midline Post Treatment Pain Post Treatment Pain Level: No Change Post Treatment Pain Location: Low Back/Lumbar Spine- Midline OBJECTIVE MEASURES WITH LEVEL OF FUNCTION: TREATMENT: Therapeutic Exercise: 1: SciFit level 2.0, 5 minutes, seat 12, 1:1 throughout, subjective collected 2: hoist standing TA pull down, plate 2, 4 sets of 12, 1 min rest between each set 3: hoist stir the pot plate 1 3 sets of 10x CW + 10x CCW each side 4: hook lying TA activation 2x10 5: bugs 3x40 sec 6: hooklying B KTC stretch 3x30 sec 7: standing paloff press pink elastic band 3x15 each side Skilled Intervention: Patient was educated in proper exercise technique and purpose for exercises. Skilled judgment was provided in selection of appropriate interventions. Correct performance of therapeutic exercises was facilitated with verbal, visual, and tactile cuing. Educated patient on rationale for performing exercises in regards to decreasing fatigue , increase ease of ADL, and ROM and function . Patient education as noted. Billing Therapeutic Exercise Treatment Minutes: 40 Total Treatment Time Minutes (timed/untimed): 40 Session Start Time : 1200 Session Stop Time : 1240 Romina Santos PT documented in this encounter [facility] 05-13-2023 Note HNO ID: [id number] Author: Romina Santos PT Service: ? Author Type: Physical Therapist Type: Progress Notes Filed: 05/13/2023 1:44 PM Note Text: Episode Visit Count: 4 Therapist That Will Accept/Oversee The Plan Of Care: Romina Santos Start of Care Date: 04/19/23 Onset Date: 10/20/22 Plan of Care Certification Date: 04/19/23 Next Certification Due Date: 05/24/23 REHABILITATION AND SPORTS THERAPY PHYSICAL THERAPY TREATMENT NOTE ASSESSMENT: Yanni Burroughs tolerated the session with decreased symptoms. She demonstrated difficulty with correct technique for stir the pot, but she was able to complete TA pulldowns and paloff press without back pain or need for technique cues. The patient will continue to benefit from ongoing skilled physical therapy to progress toward set goals. PLAN FOR NEXT VISIT: Continue core stabilization strengthening SUBJECTIVE: Pt. reports no back pain today. Pain: Pain Pain Level: 0 Pain Location: Low Back/Lumbar Spine- Midline Post Treatment Pain Post Treatment Pain Location: Low Back/Lumbar Spine- Midline OBJECTIVE MEASURES WITH LEVEL OF FUNCTION: TREATMENT: Therapeutic Exercise: 1: SciFit level 2.0, 5 minutes, seat 12, 1:1 throughout, subjective collected 2: hook lying TA activation 2x10 3: hooklying B KTC stretch 3x30 sec 4: bugs 3x30 sec 5: *standing paloff press pink elastic band 3x15 each side 6: standing stir the pot 10x cw, 10x ccw 2x10 each side (max cues for technique) 7: *pink band issued 8: *TA pull down 2x15 9: *HEP 1xday Skilled Intervention: Patient was educated in proper exercise technique and purpose for exercises. Skilled judgment was provided in selection of appropriate interventions. Provided written instruction for home exercise program to facilitate proper performance and compliance. Correct performance of therapeutic exercises was facilitated with verbal, visual, and tactile cuing. Educated patient on rationale for performing exercises in regards to decreasing fatigue , increase ease of ADL, and ROM and function . Patient education as noted. Billing Therapeutic Exercise Treatment Minutes: 40 Total Treatment Time Minutes (timed/untimed): 40 Session Start Time : 130 Session Stop Time : 1346 Romina Santos PT [facility] 05-13-2023 History of Present illness Narrative Episode Visit Count: 4 Therapist That Will Accept/Oversee The Plan Of Care: Romina Santos Start of Care Date: 04/19/23 Onset Date: 10/20/22 Plan of Care Certification Date: 04/19/23 Next Certification Due Date: 05/24/23 REHABILITATION AND SPORTS THERAPY PHYSICAL THERAPY TREATMENT NOTE ASSESSMENT: Yanni Burroughs tolerated the session with decreased symptoms. She demonstrated difficulty with correct technique for stir the pot, but she was able to complete TA pulldowns and paloff press without back pain or need for technique cues. The patient will continue to benefit from ongoing skilled physical therapy to progress toward set goals. PLAN FOR NEXT VISIT: Continue core stabilization strengthening SUBJECTIVE: Pt. reports no back pain today. Pain: Pain Pain Level: 0 Pain Location: Low Back/Lumbar Spine- Midline Post Treatment Pain Post Treatment Pain Location: Low Back/Lumbar Spine- Midline OBJECTIVE MEASURES WITH LEVEL OF FUNCTION: TREATMENT: Therapeutic Exercise: 1: SciFit level 2.0, 5 minutes, seat 12, 1:1 throughout, subjective collected 2: hook lying TA activation 2x10 3: hooklying B KTC stretch 3x30 sec 4: bugs 3x30 sec 5: *standing paloff press pink elastic band 3x15 each side 6: standing stir the pot 10x cw, 10x ccw 2x10 each side (max cues for technique) 7: *pink band issued 8: *TA pull down 2x15 9: *HEP 1xday Skilled Intervention: Patient was educated in proper exercise technique and purpose for exercises. Skilled judgment was provided in selection of appropriate interventions. Provided written instruction for home exercise program to facilitate proper performance and compliance. Correct performance of therapeutic exercises was facilitated with verbal, visual, and tactile cuing. Educated patient on rationale for performing exercises in regards to decreasing fatigue , increase ease of ADL, and ROM and function . Patient education as noted. Billing Therapeutic Exercise Treatment Minutes: 40 Total Treatment Time Minutes (timed/untimed): 40 Session Start Time : 1306 Session Stop Time : 1346 Romina Santos PT documented in this encounter [facility] 05-03-2023 Note HNO ID: [id number] Author: Romina Santos PT Service: ? Author Type: Physical Therapist Type: Progress Notes Filed: 05/03/2023 1:04 PM Note Text: Episode Visit Count: 3 Therapist That Will Accept/Oversee The Plan Of Care: Romina Santos Start of Care Date: 04/19/23 Onset Date: 10/20/22 Plan of Care Certification Date: 04/19/23 Next Certification Due Date: 05/24/23 Patient Identified by Name and Date of : Yes REHABILITATION AND SPORTS THERAPY PHYSICAL THERAPY TREATMENT NOTE ASSESSMENT: Yanni Burroughs tolerated the session with fatigue and expected muscle soreness. She demonstrated difficulty with longer duration TA activation in sitting with Pallo'f press. The patient will continue to benefit from ongoing skilled physical therapy to progress toward set goals. PLAN FOR NEXT VISIT: Continue with seated, possible standing core strengthenigng. Asses response to new hooklying exercises. SUBJECTIVE: Pt reports that her back is feeling much better today. Pain: Pain Pain Level: 0 Pain Location: Low Back/Lumbar Spine- Midline Post Treatment Pain Post Treatment Pain Level: 0 Post Treatment Pain Location: Low Back/Lumbar Spine- Midline OBJECTIVE MEASURES WITH LEVEL OF FUNCTION: Good TA activation noted in hooklying. TREATMENT: Therapeutic Exercise: 1: hook lying TA activation 2x10 2: hook lying TA activation wiht BKFO 2x10 3: hook lying TA activation with LE slides 2x10 B 4: bugs 2x10 B 5: seated TA activation 55 cm physioball 2x15 6: Seated Pallof's press with [employer] TB 2x10 each side Skilled Intervention: Patient was educated in proper exercise technique and purpose for exercises. Skilled judgment was provided in selection of appropriate interventions. Correct performance of therapeutic exercises was facilitated with verbal and visual cuing. Billing Therapeutic Exercise Treatment Minutes: 40 Total Treatment Time Minutes (timed/untimed): 40 Session Start Time : 1142 Session Stop Time : 1222 ROB Delgado, PT [facility] 05-03-2023 History of Present illness Narrative Episode Visit Count: 3 Therapist That Will Accept/Oversee The Plan Of Care: Romina Santos Start of Care Date: 04/19/23 Onset Date: 10/20/22 Plan of Care Certification Date: 04/19/23 Next Certification Due Date: 05/24/23 Patient Identified by Name and Date of : Yes REHABILITATION AND SPORTS THERAPY PHYSICAL THERAPY TREATMENT NOTE ASSESSMENT: Yanni Burroughs tolerated the session with fatigue and expected muscle soreness. She demonstrated difficulty with longer duration TA activation in sitting with Pallo'f press. The patient will continue to benefit from ongoing skilled physical therapy to progress toward set goals. PLAN FOR NEXT VISIT: Continue with seated, possible standing core strengthenigng. Asses response to new hooklying exercises. SUBJECTIVE: Pt reports that her back is feeling much better today. Pain: Pain Pain Level: 0 Pain Location: Low Back/Lumbar Spine- Midline Post Treatment Pain Post Treatment Pain Level: 0 Post Treatment Pain Location: Low Back/Lumbar Spine- Midline OBJECTIVE MEASURES WITH LEVEL OF FUNCTION: Good TA activation noted in hooklying. TREATMENT: Therapeutic Exercise: 1: hook lying TA activation 2x10 2: hook lying TA activation wiht BKFO 2x10 3: hook lying TA activation with LE slides 2x10 B 4: bugs 2x10 B 5: seated TA activation 55 cm physioball 2x15 6: Seated Pallof's press with [employer] TB 2x10 each side Skilled Intervention: Patient was educated in proper exercise technique and purpose for exercises. Skilled judgment was provided in selection of appropriate interventions. Correct performance of therapeutic exercises was facilitated with verbal and visual cuing. Billing Therapeutic Exercise Treatment Minutes: 40 Total Treatment Time Minutes (timed/untimed): 40 Session Start Time : 1142 Session Stop Time : 1222 ROB Delgado PT documented in this encounter [facility] 04-30-2023 Note HNO ID: [id number] Author: Romina Santos PT Service: ? Author Type: Physical Therapist Type: Progress Notes Filed: 04/30/2023 5:03 PM Note Text: Episode Visit Count: 2 Therapist That Will Accept/Oversee The Plan Of Care: Romina Santos Start of Care Date: 04/19/23 Onset Date: 10/20/22 Plan of Care Certification Date: 04/19/23 Next Certification Due Date: 05/24/23 REHABILITATION AND SPORTS THERAPY PHYSICAL THERAPY TREATMENT NOTE ASSESSMENT: Yanni Burroughs tolerated the session with no issues. She demonstrated difficulty with correct technique with TA activation, requiring cues to breathe and avoid substitution with the B hamstrings. The patient will continue to benefit from ongoing skilled physical therapy to progress toward set goals. PLAN FOR NEXT VISIT: Continue progressing hooklying TA activation, add bent knee fall outs, heel slides, and bugs SUBJECTIVE: Patient Reason for Visit: Back is feeling better with TA activation. She does continue to have pain with turning her body either direction (such as when toileting). Pain: Pain Pain Level: 0 Pain Location: Low Back/Lumbar Spine- Midline Description: Aching Post Treatment Pain Post Treatment Pain Level: 0 Post Treatment Pain Location: Low Back/Lumbar Spine- Midline OBJECTIVE MEASURES WITH LEVEL OF FUNCTION: TREATMENT: Therapeutic Exercise: 1: hook lying TA activation 2x10 2: *hook lying TA activation 2x10, 5 sec hold each 3: *hook lying TA activation with alt UE raises 2x10 4: *hook lying TA activation with alt LE raises 2x10 (max verbal, tactile, and visual cues required for correct technique) 5: seated TA activation 55 cm physioball 2x15 Skilled Intervention: Patient was educated in proper exercise technique and purpose for exercises. Skilled judgment was provided in selection of appropriate interventions. Provided written instruction for home exercise program to facilitate proper performance and compliance. Correct performance of therapeutic exercises was facilitated with verbal, visual, and tactile cuing. Educated patient on rationale for performing exercises in regards to decreasing fatigue , increase ease of ADL, and ROM and function . Patient education as noted. Neuromuscular Re-Education: 1: hook lying TA activation 20 mmHg to 40mmHg 1x10 2: hook lying TA activation 20 mmHg to 40mmHg 2x10 3: hook lying TA activation hold at 40mmHg 2x10 counting aloud to 10 secconds 4: hook lying TA alt LE raises 2x10 holding at 40 mmHg Skilled Intervention: Skilled judgment used to assess appropriate program for balance and coordination activity. Education in proprioceptive/kinesthetic awareness during hook lying TA activation with biofeedback . Patient education as noted. Billing Therapeutic Exercise Treatment Minutes: 25 Neuromuscular Re-Education Treatment Minutes: 15 Total Treatment Time Minutes (timed/untimed): 40 Session Start Time : 1625 Session Stop Time : 1705 Romina O'Brian, PT [facility] 04-30-2023 History of Present illness Narrative Episode Visit Count: 2 Therapist That Will Accept/Oversee The Plan Of Care: Romina Santos Start of Care Date: 04/19/23 Onset Date: 10/20/22 Plan of Care Certification Date: 04/19/23 Next Certification Due Date: 05/24/23 REHABILITATION AND SPORTS THERAPY PHYSICAL THERAPY TREATMENT NOTE ASSESSMENT: Yanni Burroughs tolerated the session with no issues. She demonstrated difficulty with correct technique with TA activation, requiring cues to breathe and avoid substitution with the B hamstrings. The patient will continue to benefit from ongoing skilled physical therapy to progress toward set goals. PLAN FOR NEXT VISIT: Continue progressing hooklying TA activation, add bent knee fall outs, heel slides, and bugs SUBJECTIVE: Patient Reason for Visit: Back is feeling better with TA activation. She does continue to have pain with turning her body either direction (such as when toileting). Pain: Pain Pain Level: 0 Pain Location: Low Back/Lumbar Spine- Midline Description: Aching Post Treatment Pain Post Treatment Pain Level: 0 Post Treatment Pain Location: Low Back/Lumbar Spine- Midline OBJECTIVE MEASURES WITH LEVEL OF FUNCTION: TREATMENT: Therapeutic Exercise: 1: hook lying TA activation 2x10 2: *hook lying TA activation 2x10, 5 sec hold each 3: *hook lying TA activation with alt UE raises 2x10 4: *hook lying TA activation with alt LE raises 2x10 (max verbal, tactile, and visual cues required for correct technique) 5: seated TA activation 55 cm physioball 2x15 Skilled Intervention: Patient was educated in proper exercise technique and purpose for exercises. Skilled judgment was provided in selection of appropriate interventions. Provided written instruction for home exercise program to facilitate proper performance and compliance. Correct performance of therapeutic exercises was facilitated with verbal, visual, and tactile cuing. Educated patient on rationale for performing exercises in regards to decreasing fatigue , increase ease of ADL, and ROM and function . Patient education as noted. Neuromuscular Re-Education: 1: hook lying TA activation 20 mmHg to 40mmHg 1x10 2: hook lying TA activation 20 mmHg to 40mmHg 2x10 3: hook lying TA activation hold at 40mmHg 2x10 counting aloud to 10 secconds 4: hook lying TA alt LE raises 2x10 holding at 40 mmHg Skilled Intervention: Skilled judgment used to assess appropriate program for balance and coordination activity. Education in proprioceptive/kinesthetic awareness during hook lying TA activation with biofeedback . Patient education as noted. Billing Therapeutic Exercise Treatment Minutes: 25 Neuromuscular Re-Education Treatment Minutes: 15 Total Treatment Time Minutes (timed/untimed): 40 Session Start Time : 1625 Session Stop Time : 1705 Romina Santos PT documented in this encounter [facility] 04-19-2023 Note HNO ID: [id number] Author: Romina Santos PT Service: ? Author Type: Physical Therapist Type: Progress Notes Filed: 04/19/2023 2:06 PM Note Text: Episode Visit Count: 1 Therapist That Will Accept/Oversee The Plan Of Care: Romina Santos Start of Care Date: 04/19/23 Onset Date: 10/20/22 Plan of Care Certification Date: 04/19/23 Next Certification Due Date: 05/24/23 Patient Identified by Name and Date of : Yes REHABILITATION AND SPORTS THERAPY PHYSICAL THERAPY EVALUATION PLAN OF CARE: Assessment: Yanni Burroughs presents with diagnosis of chronic midline low back pain without sciatica that interferes with bending, cleaning (prolonged sitting or standing, moving furnature) . She presents with impairments in ADL's, independence in exercise, joint mobility, overall function, patient reported outcome measures, posture, range of motion, strength, and symptom management. PROMIS? (Patient-Reported Outcomes Measurement Information System) scores were reviewed and physical function domain and self efficacy domain identified as a rehabilitation concern. Prognosis for therapy is Good due to: current objective clinical presentation, good overall health status, positive past response to therapy, good support system/ coping skills . She will benefit from skilled therapy services to meet the goals established for this plan of care as noted below. Classification Low Back Pain Subgroup Classification: Core stabilization subgroup: recommended visits 10. Core Stabilization Subgroup Classification based on: history of locking/catching, segmental hinging, aberrant movements, pain with transitional movements Goals for Episode of Care: created on 04/19/23 through 05/31/23 Independent in home exercises. Patient will decrease pain rating by 2 points to meet minimal clinical important difference for numeric pain rating scale. Restore pain-free lumbar ROM to minimal to no limitation extension and side flexion each direction to allow for transitional movements. Stand / Walk 45-60 min without pain/symptoms. Sit 1-2 hours without pain/symptoms to allow for seated activities without increased symptoms Maintain proper sitting posture throughout session Patient will be able to tolerate functional activities for 1 to 1.5 hours without increased symptoms. Patient Goals: reduce low back pain with bending, cleaning, and prolonged sitting/standing activities Planned Interventions, Frequency, and Duration: Current Frequency: 2x/week Duration: 6 weeks Total Number of Visits Planned: 12 Planned Treatment Interventions: Therapeutic exercise (05611), Neuromuscular re-education (66746), Manual therapy (57364), Therapeutic activities (48703), Self-shelter management (71731), Gait Training (27229), Patient/Family/Caregiver Education PLAN FOR NEXT VISIT: Assess symptom response to TA activation in hook lying or seated Patient demonstrates good understanding of plan of care and treatment. The above goals and plan of care were discussed and agreed upon by patient/family. SUBJECTIVE: Yanni Burroughs is a 72 year old female seen today for for chonic LBP that became worse over the past 6 months,feels better with ambulation but prolonged standing or sitting positions make it worse. Pt. attributes her pain to overuse activities including cleaning. Low back pain increases with bending and as the day progresses. She admits she does too much before resting. Laying down at night does not improve her symptoms. Patient Goals: reduce low back pain with bending, cleaning, and prolonged sitting/standing activities Functional Limitations: bending, cleaning (prolonged sitting or standing, moving furnature) Prior Level of Function: Independent with restrictions Relevant History Past Relevant Medical Conditions: Thyroid Disease, Anxiety, Depression, Asthma, Cardiac (4 years ago quadruple bypass surgery) Employment: Student Intake Information: Prescription present Previous Treatment: Ice , Heat (rarely tylenol) Falls Interview: No positive findings with falls interview Red Flags Vertebral Fracture Red Flags: Female, Age >70 Vertebral Fracture Clinical Reasoning: Proceed with caution due to the above (1-2) risk factors Abdominal Aortic Aneurysm Red Flags: Age >60 Abdominal Aortic Aneurysm Clinical Reasoning: Proceed with caution Cancer Red Flags: Age >50 or <20 Cancer Clinical Reasoning: Proceed with caution Infection Clinical Reasoning: No identified risk factors. Cauda Equina Syndrome Clinical Reasoning: No identified risk factors. Red Flags - Cervical Cancer Red Flags: Age >50 or <20 Cancer Clinical Reasoning: Proceed with caution Infection Clinical Reasoning: No identified risk factors. Spine History Symptoms Location at Onset: Back Pain is Worse Always: PM, As the day progresses, Bending, Prolonged positions Pain is Better Always: Walking, Sitting, Rest Sleeping Positi (more content not included)... [facility] 04-04-2023 Note HNO ID: [id number] Author: Aleksandra Ghotra 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 SEISMOGRAPH Service: ? Author Type: Nurse Practitioner Type: Progress Notes Filed: 04/17/2023 9:26 AM Note Text: Rheumatology FOLLOW UP VISIT Referring Provider: Date of Service: 04/04/2023 Gender: female Ethnicity: White Age: [age] year old Chief Complaint: Sjogren's Disease Last Rheumatology visit: 04/04/2023 (with Aleksandra Ghotra) Yanni Burroughs is a 72 year old White female who presents on 04/04/2023 for in person visit for evaluation of Sjogren's Disease. She is currently taking hydroxychloroquine sulfate. Yanni is both RF - 17 (06/22/2009) and CCP - 13.5 (09/11/2007) negative. Her most recent CHRISTINA was positive (09/11/2007). INTERVAL HISTORY Off Plaquenil 200 mg BID since Sep as states could not get a Rheumatology appt. She uses OTC eye drops. Has dentures. Uses biotine rinses, drinks lot of water. Patient-Entered Data RAPID 3 [place] Activities of Daily Living No Data Dress self? - Get in and out of bed? - Walk outdoors? - Wash and dry body? - Get in and out of car? - RAPID 3 Disease Activity Weighed Score Levels: 0 - 1: Near Remission 1.3 - 2.0: Low Severity 2.3 - 4.0: Moderate Severity 4.3 - 10.0: High Severity RAPID-3 Weighed Score 12/24/2017 07/15/2019 RAPID 3 Weighed Score 2.3 0.7 PROMIS Assessments PROMIS Global Health - (T-Scores - the mean of general population = 50. Five points is a clinically meaningful difference.) 08/29/2015 12/24/2017 07/15/2019 Physical T-Score 44.9 50.8 50.8 Mental T-Score 50.8 50.8 56 No flowsheet data found.No flowsheet data found.No flowsheet data found. Impression Diagnoses: (M35.00) Sjogren syndrome (HCC) (primary encounter diagnosis) Hepatitis B Antibody test: Negative (12/30/2017) At today's visit, the patient's disease appears to be: in remission Plan (M35.00) Sjogren syndrome (HCC) (primary encounter diagnosis) Comment: Long standing Sjogrens, controlled on Plauqenil Ok for refill Plan: Plaquenil monitoring Protocol: - CBC at baseline and periodically; liver function; muscle strength (especially proximal, as a symptom of neuromyopathy) during long-term therapy -Ophthalmologic exam at baseline (fundus examination within the first year plus visual mg and spectral-domain optical coherence tomography [SD OCT] if maculopathy is present) to screen for retinal toxicity, followed by annual screening beginning after 5 years of use (or sooner if major risk factors are present) (Nathalia [AAO 2016]). -Due to the risk of retinal toxicity, do not exceed a daily dose of 5 mg/kg/day using actual body weight or 400 mg (AAO [Evelinor 2016]; Plaquenil PI). Return in about 6 months (around 10/05/2023). I spent a total of 20 minutes on the date of the service which included preparing to see the patient, [id number] patient care, completing clinical documentation, obtaining and/or reviewing separately obtained history, performing a medically appropriate examination, and counseling and educating the patient/family/caregiver. Aleksandra Ghotra 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 SEISMOGRAPH cc: PCP: Ray Rivas [id number] [place] [address] Subjective HISTORY OF PRESENT ILLNESS Sjogrens- dry eyes , dry mouth CHRISTINA Positive: Yes Comments: + SSA, +SSB Treatment is Plaquenil 200 mg BID. INTERVAL HISTORY Off Plaquenil 200 mg BID since Sep as states could not get a Rheumatology appt. She uses OTC eye drops. Has dentures. Uses biotine rinses, drinks lot of water. Disease History PAIN EVALUATION No data found in the last 1 encounters. Objective Treatment History Relevant Previous Investigations CBC Latest Ref Rng AND Units 09/02/2019 09/08/2021 02/07/2022 11/16/2022 WBC 3.70 - 11.00 k/uL 4.89 4.38 3.54(L) 4.63 HGB 11.2 - 15.7 g/dL - - - - HEMOGLOBIN 11.5 - 15.5 g/dL 12.1 11.9 12.2 12.9 HEMOGLOBIN, MARLEEN 11.5 - 15.5 g/dL - - - - HEMATOCRIT 36.0 - 46.0 % 39.2 36.3 38.1 41.1 PLATELETS 150 - 400 k/uL 223 186 156 184 ABS NEUT (ANC) 1.45 - 7.50 k/uL - - 2.14 3.01 ABS NEUT, MARLEEN 1.45 - 7.50 k/uL - - - - ABS LYMP, MARLEEN 1.00 - 4.00 k/uL - - - - ABS LYMPH 1.00 - 4.00 k/uL - - 0.97(L) 1.17 CMP Latest Ref Rng AND Units 04/15/2020 09/08/2021 02/07/2022 11/16/2022 SODIUM 136 - 144 mmol/L 140 141 143 142 SODIUM, MARLEEN 132 - 148 mmol/L - - - - SODIUM, MARLEEN 132 - 148 mmol/L - - - - POTASSIUM 3.7 - 5.1 mmol/L 4.5 4.1 4.7 4.9 POTASSIUM, MARLEEN 3.5 - 5.0 mmol/L - - - - CHLORIDE 97 - 105 mmol/L 102 103 104 105 CHLORIDE, MARLEEN 98 - 110 mmol/L - - - - CO2 22 - 30 mmol/L 28 31(H) 27 27 CO2, MARLEEN 23.0 - 32.0 mmol/L - - - - GLUCOSE 74 - 99 mg/dL 71(L) 68(L) 80 80 GLUCOSE (U), MARLEEN NEGAT mg/dL - - - - GLUCOSE, MARLEEN 65 - 100 mg/dL - - - - BUN 7 - 21 mg/dL 11 12 11 11 BUN, MARLEEN 10 - 25 mg/dL - - - - CREATININE 0.58 - 0.96 mg/dL 0.77 0.78 0.77 0.84 CR (more content not included)... [facility] 03-12-2023 Miscellaneous Notes Patient notified of order placed. Instructed to call in to schedule. Carlota Jimenez LPN Order for PT placed. Please let patient she can call and schedule. Carolin Blanca APRN.CNP TC to patient who verbalized understanding of providers message and is agreeable to PT. Please place consult. KRISTY Guerrier ----- Message from Carolin Blanca APRN.CNP sent at 03/12/2023 7:07 AM EDT ----- Please let patient know her xrays shows degenerative ( aging changes) to the thoracic and lumbar spine- worse lumbar. Would recommend referral to PT and id not improving pain management. Carolin Blanca APRN.CNP documented in this encounter [facility] 03-06-2023 Note HNO ID: [id number] Author: RT Boo(R) Service: ? Author Type: [employer] Type: Progress Notes Filed: 03/06/2023 2:05 PM Note Text: Radiology Service Progress Note PATIENT NAME: Yanni Burroughs DATE OF SERVICE: March 06, 2023 TIME: 1:51 PM PATIENT IDENTITY VERIFICATION COMPLETED USING TWO (2) IDENTIFIERS: Name and Date of confirmed by patient verbally. FALL SCREENING: Has the patient had 2 falls in the last year or 1 fall with injury or currently using an Ambulatory Assistive Device (Walker, Cane, Wheelchair, Crutches, etc.)? No PATIENT GENDER DATA: Female. status: : No status: NO. PATIENT RELEVANT IMPLANT DATA REVIEWED: Yes RADIOLOGY DEPARTMENT: General X-ray: Exam(s) Completed: Spine X-Ray(s): Thoracic and Lumbar AP / LAT / L5-S1 PERIPHERAL IV DATA: Not applicable SIGNED BY: RT Boo(R) March 06, 2023 1:51 PM [facility] 03-06-2023 Note HNO ID: [id number] Author: Carolin Blanca 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 SEISMOGRAPH Service: ? Author Type: Nurse Practitioner Type: Progress Notes Filed: 03/06/2023 3:36 PM Note Text: 03/06/2023 Patient presents with: F/U 6 months Low Back Pain: Has had for a while, seems to be getting worse SUBJECTIVE: This is a 72 year old that is here today for Above Complaints. ONSET: low back LOCATION: midline DURATION: constant CHARACTERISTICS: aching AGGRAVATING FEATURES: daily use ALLEVIATING FEATURES: heating pad RADIATION: none Denies hx of back surgery or injury, saddle anaesthesia, extremity numbness, tingling, weakness, urinary/bowel incontinence or inability Improvement in pruritis she was having in left arm. Has stopped the gabapentin. HX of CABG: Follows with [facility] every September. No medication changes. Taking medications as prescribed. Denies SOB, dyspnea, chest pain, palpitations or leg edema Taking Zoloft as prescribed without side effects. 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 Dr. 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 Jose Hernandes Sjogren syndrome ([facility]) 07/25/2005 + SSA, + SSB, low + RF Sjogren's syndrome (HCC) Vaginal dryness, menopausal Seeing Anju Dearborn ALLERGIES Doxycycline MEDICATIONS Current Outpatient Medications Medication Sig sertraline (ZOLOFT) 50 mg tablet Take 0.5 tablets by mouth once daily. fluticasone (FLONASE) 50 mcg/actuation nasal spray Use 2 Sprays in each nostril once daily. Rinse mouth after use. atorvastatin (LIPITOR) 40 mg tablet Take 1 tablet by mouth daily at bedtime. gabapentin (NEURONTIN) 300 mg capsule Take 1 capsule by mouth daily at bedtime for 30 days. levothyroxine (SYNTHROID) 25 mcg tablet Take 1 tablet by mouth daily before breakfast. hydrOXYzine pamoate (VISTARIL) 25 mg capsule May take 1-2 tablets three times a day as needed for itching amLODIPine (NORVASC) 2.5 mg tablet Take by mouth. Take one(1) tablet daily. therapeutic multivitamin w/ iron (THERAGRAN-M) 27-0.4 mg tablet Take 1 tablet by mouth once daily. fluticasone (FLONASE) 50 mcg/actuation nasal spray Use 2 Sprays in each nostril once daily. Rinse mouth after use. loratadine (CLARITIN) 10 mg tablet Take 1 tablet by mouth once daily. aspirin 81 mg chewable tablet Take 1 tablet by mouth once daily. Take 2 tabs of 81 mg for 1 month, then 1 tab there after, thanks. No current facility-administered medications for this visit. Medications and allergies reviewed by this provider. SOCIAL HISTORY Social History Tobacco Use Smoking status: Never Smokeless tobacco: Never Vaping Use Vaping Use: Never used Substance Use Topics Alcohol use: No Comment: occaisional maybe one a year Drug use: No Comment: no tattoos, no transfusions REVIEW OF SYSTEMS All other reviewed and negative other than HPI. OBJECTIVE: BP 130/72 Pulse 84 Resp 18 Wt 66.5 kg (146 lb 9.6 oz) SpO2 100% BMI 24.78 kg/m? . Vital signs reviewed by this provider. APPEARANCE Well appearing, alert, in no acute distress, well-hydrated, well nourished. EYES PERRLA, conjunctiva and sclera normal. HEART RRR with normal S1 and S2, no murmurs, no gallops, no JVD appreciated LUNG clear to auscultation. No wheezes, rhonchi or rales BACK: good flexion and extension, negative SLR test, TTP upper lumbar lower thoracic spine midline. No obvious deformity, erythema or swelling EXTREMITIES Extremities normal, No deformities, No skin discoloration, and No edema NEURO Reflexes symmetrical, Normal gait, No involuntary motions., and negative findings: gait, including heel, toe, and tandem walking normal, muscle tone normal, muscle strength normal, reflexes normal and symmetric, plantar response downgoing bilaterally SKIN Skin color, texture, turgor normal, no suspicious rashes or lesions to exposed skin Component Latest Ref Rng AND Units 11/16/2022 WBC 3.70 - 11.00 k/uL 4.63 RBC 3.90 - 5.20 m/uL 4.58 Hemoglobin 11.5 - 15.5 g/dL 12.9 Hematocrit 36.0 - 46.0 % 41.1 MCV 80.0 - 100.0 fL 89.7 MCH 26.0 - 34.0 pg 28.2 MCHC 30.5 - 36.0 g/dL 31.4 RDW-CV 11.5 - 15.0 % 12.3 Platelet Count 150 - 400 k/uL 184 MPV 9.0 - 12.7 fL 11.3 Neut% % 65.0 Abs Neut (ANC) 1.45 - 7.50 k/uL 3.01 Lymph% % 25.3 Abs Lymph 1.00 - 4.00 k/uL 1.17 [place]% % 6.7 Abs [place] <0.87 k/uL 0.31 Eosin% % 2.4 Abs Eosin <0.46 k/uL 0.11 Baso% % 0.4 Abs Baso <0.11 k/uL <0.03 Immature Gran % (more content not included)... [facility] 03-06-2023 History of Present illness Narrative 03/06/2023 Patient presents with: F/U 6 months Low Back Pain: Has had for a while, seems to be getting worse SUBJECTIVE: This is a 72 year old that is here today for Above Complaints. ONSET: low back LOCATION: midline DURATION: constant CHARACTERISTICS: aching AGGRAVATING FEATURES: daily use ALLEVIATING FEATURES: heating pad RADIATION: none Denies hx of back surgery or injury, saddle anaesthesia, extremity numbness, tingling, weakness, urinary/bowel incontinence or inability Improvement in pruritis she was having in left arm. Has stopped the gabapentin. HX of CABG: Follows with [facility] every September. No medication changes. Taking medications as prescribed. Denies SOB, dyspnea, chest pain, palpitations or leg edema Taking Zoloft as prescribed without side effects. 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 Dr. 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 Jose Hernandes Sjogren syndrome ([facility]) 07/25/2005 + SSA, + SSB, low + RF Sjogren's syndrome ([facility]) Vaginal dryness, menopausal Seeing Anju Nell ALLERGIES Doxycycline MEDICATIONS Current Outpatient Medications Medication Sig sertraline (ZOLOFT) 50 mg tablet Take 0.5 tablets by mouth once daily. fluticasone (FLONASE) 50 mcg/actuation nasal spray Use 2 Sprays in each nostril once daily. Rinse mouth after use. atorvastatin (LIPITOR) 40 mg tablet Take 1 tablet by mouth daily at bedtime. gabapentin (NEURONTIN) 300 mg capsule Take 1 capsule by mouth daily at bedtime for 30 days. levothyroxine (SYNTHROID) 25 mcg tablet Take 1 tablet by mouth daily before breakfast. hydrOXYzine pamoate (VISTARIL) 25 mg capsule May take 1-2 tablets three times a day as needed for itching amLODIPine (NORVASC) 2.5 mg tablet Take by mouth. Take one(1) tablet daily. therapeutic multivitamin w/ iron (THERAGRAN-M) 27-0.4 mg tablet Take 1 tablet by mouth once daily. fluticasone (FLONASE) 50 mcg/actuation nasal spray Use 2 Sprays in each nostril once daily. Rinse mouth after use. loratadine (CLARITIN) 10 mg tablet Take 1 tablet by mouth once daily. aspirin 81 mg chewable tablet Take 1 tablet by mouth once daily. Take 2 tabs of 81 mg for 1 month, then 1 tab there after, thanks. No current facility-administered medications for this visit. Medications and allergies reviewed by this provider. SOCIAL HISTORY Social History Tobacco Use Smoking status: Never Smokeless tobacco: Never Vaping Use Vaping Use: Never used Substance Use Topics Alcohol use: No Comment: occaisional maybe one a year Drug use: No Comment: no tattoos, no transfusions REVIEW OF SYSTEMS All other reviewed and negative other than HPI. OBJECTIVE: BP 130/72 Pulse 84 Resp 18 Wt 66.5 kg (146 lb 9.6 oz) SpO2 100% BMI 24.78 kg/m . Vital signs reviewed by this provider. APPEARANCE Well appearing, alert, in no acute distress, well-hydrated, well nourished. EYES PERRLA, conjunctiva and sclera normal. HEART RRR with normal S1 and S2, no murmurs, no gallops, no JVD appreciated LUNG clear to auscultation. No wheezes, rhonchi or rales BACK: good flexion and extension, negative SLR test, TTP upper lumbar lower thoracic spine midline. No obvious deformity, erythema or swelling EXTREMITIES Extremities normal, No deformities, No skin discoloration, and No edema NEURO Reflexes symmetrical, Normal gait, No involuntary motions., and negative findings: gait, including heel, toe, and tandem walking normal, muscle tone normal, muscle strength normal, reflexes normal and symmetric, plantar response downgoing bilaterally SKIN Skin color, texture, turgor normal, no suspicious rashes or lesions to exposed skin Component Latest Ref Rng & Units 11/16/2022 WBC 3.70 - 11.00 k/uL 4.63 RBC 3.90 - 5.20 m/uL 4.58 Hemoglobin 11.5 - 15.5 g/dL 12.9 Hematocrit 36.0 - 46.0 % 41.1 MCV 80.0 - 100.0 fL 89.7 MCH 26.0 - 34.0 pg 28.2 MCHC 30.5 - 36.0 g/dL 31.4 RDW-CV 11.5 - 15.0 % 12.3 Platelet Count 150 - 400 k/uL 184 MPV 9.0 - 12.7 fL 11.3 Neut% % 65.0 Abs Neut (ANC) 1.45 - 7.50 k/uL 3.01 Lymph% % 25.3 Abs Lymph 1.00 - 4.00 k/uL 1.17 [place]% % 6.7 Abs [place] <0.87 k/uL 0.31 Eosin% % 2.4 Abs Eosin <0.46 k/uL 0.11 Baso% % 0.4 Abs Baso <0.11 k/uL <0.03 Immature Gran % % 0.2 IMMATURE GRANS (ABS) <0.10 k/uL <0.03 NRBC /100 WBC 0.0 Absolute nRBC <0.01 k/uL <0.01 DTYPE Auto Protein, Total 6.3 - 8.0 g/dL 7.7 Albumin 3.9 - 4.9 g/dL 4.4 Calcium 8.5 - 10.2 mg/dL 10.0 Bilirubin, Total 0.2 - 1.3 mg/dL 0.4 Alkaline Phosphatase 34 - 123 U/L 86 AST 13 - 35 U/L 27 ALT 7 - 38 U/L 21 Glucose 74 - 99 mg/dL 80 BUN 7 - 21 mg/dL 11 Creatinine 0.58 - 0.96 mg/dL 0.84 Sodium 136 - 144 mmol/L 142 Potassium 3.7 - 5.1 mmol/L 4.9 Chloride 97 - 105 mmol/L 105 CO2 22 - 30 mmol/L 27 Anion Gap 9 - 18 mmol/L 10 eGFR >=60 mL/min/1.73m 74 Component Latest Ref Rng & Units 03/08/2021 TSH 0.270 - 4.200 uU/mL 3.340 COVID-19 VACCINE(1) Never done SPIROMETRY Never done SHINGRIX VACCINE(2 of 3) due on 11/02/2013 LDL CHOLESTEROL due on 04/15/2021 ADVANCE DIRECTIVE DISCUSSION Never done DTAP,TDAP,TD(2 - Td or Tdap) due on 03/16/2023 COLORECTAL CANCER SCREENING due on 06/22/2023 MAMMOGRAM due on 08/20/2023 ANNUAL PCP TEAM CHRONIC DISEASE VISIT due on 11/21/2023 DIABETES SCREEN due on 11/16/2025 LIPID SCREEN due on 09/08/2026 BONE DENSITY Completed INFLUENZA Completed HEPATITIS C SCREENING Completed PNEUMOCOCCAL: 65+ Completed ASSESSMENT/PLAN: 1. Hypothyroidism, acquired - ICD9: 244.9, ICD10: E03.9 (primary diagnosis) - Instructed patient on importance of taking on an empty stomach either first thing in the morning or at bedtime. - continue current dose of Synthroid 0.025 mg - Follow up in 6 months - TSH BLD 2. Depression, unspecified depression type - ICD9: 311, ICD10: F32.A - stable on current regime - SERTRALINE 25 MG TABLET 3. Coronary artery disease involving stebbins heart without angina pectoris, unspecified vessel or lesion type - ICD9: 414.01, ICD10: I25.10 - stable on current regime - LIPID PANEL BASIC - COMP METABOLIC PANEL - follow-up with cardiology as recommended 4. Acute midline back pain, unspecified back location - ICD9: 724.5, ICD10: M54.9 Mechanical low back pain - Warm moist heat for 20 min three times a day - Xrays- see orders - Patient given instructions use of medications as ordered, intermittent rest, back care exercise program, weight loss, improved posture, proper lifting techniques, intermittent use of heat, and avoiding sleeping on a heating pad - XR THORACIC GENERAL 3V AP/LAT/SWIMMERS - XR LUMBAR GENERAL 3V AP/LAT/L5-S1 5. Sjogren's syndrome with keratoconjunctivitis sicca (HCC) - ICD9: 710.2, ICD10: M35.01 - follow-up with rheumatology as scheduled Carolin Blanca 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 SEISMOGRAPH Prescription instructions reviewed with patient as applicable. Patient advised if symptoms do not improve or if symptoms worsen sooner, to contact their primary care physician. Potential red flag symptoms discussed with the patient. Reviewed appropriate action plan to take if red flag symptoms occur. Patient agreeable to treatment plan. I spent a total of 30 minutes on the date of the service which included preparing to see the patient, [id number] patient care, completing clinical documentation, obtaining and/or reviewing separately obtained history, performing a medically appropriate examination, counseling and educating the patient/family/caregiver, and ordering medications, tests, or procedures. documented in this encounter [facility] 11-21-2022 Note HNO ID: [id number] Author: Carlota Jimenez LPN Service: ? Author Type: LICENSED NURSE Type: Progress Notes Filed: 11/21/2022 12:52 PM Note Text: Patient presents today for flu vaccination. Vaccination received to left deltoid without complications. Carlota Jimenez LPN [facility] 11-21-2022 History of Present illness Narrative Patient presents today for flu vaccination. Vaccination received to left deltoid without complications. Carlota Jimenez LPN documented in this encounter [facility] 11-13-2022 Miscellaneous Notes Patient has been identified by name and date of : Yes, Provider Dr. Rivas Date 11/13/22 Time 1:39 pm Patient phones for refill(s): Requested Prescriptions Pending Prescriptions Disp Refills sertraline (ZOLOFT) 50 mg tablet 45 tablet 1 Sig: Take 0.5 tablets by mouth once daily. Date of last office visit in primary care: 09/05/22 next apt 03/06/23 Last 2 Encounter Wt Readings: Date: Wt: 10/10/2022 65.3 kg (144 lb) 09/05/2022 65.3 kg (144 lb) Previous labs/tests for medication: Not applicable Thank you. Melina Colorado LPN documented in this encounter [facility] 10-10-2022 History of Present illness Narrative Subjective HPI HPI Yanni Burroughs is a 71 year old female who presents today for CC of left ear pain, drainage. This started few weeks ago. Has tried nothing for relief. Symptoms are worsened by nothing. Stuffy nose for few weeks. Reports scratching ear with finger nail. .Patient presents with: Ear Pain: left x couple weeks, drainage PAST MEDICAL HISTORY Diagnosis Date Anxiety Asthma cough variant BPPV (benign paroxysmal positional vertigo) CAD (coronary artery disease) 06/2019 s/p cabg x4. Dr. 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 Jose Hernandes Sjogren syndrome ([facility]) 07/25/2005 + SSA, + SSB, low + RF Sjogren's syndrome ([facility]) Vaginal dryness, menopausal Seeing Anju Camejo PAST SURGICAL HISTORY Procedure Laterality Date CABG (4) VEIN GRAFTS & ARTERIAL GRAFT(S) 06/15/2019 at [facility] by Dr. Blanton COLONOSCOPY 02/2001 COLONOSCOPY FLX DX W/COLLJ SPEC WHEN PFRMD 06/22/13 Colonoscopy CONIZATION CERVIX W/WO D&C RPR ELTRD EXC 09/1999 LEEP-Cervix ESOPHAGOGASTRODUODENOSCOPY TRANSORAL DIAGNOSTIC 03/28/2012 EGD LIG/TRNSXJ FLP TUBE ABDL/VAG APPR UNI/BI Tubal ligation PAST SURGICAL HISTORY OF Right 2016 ganglion cyst removal from thumb ALLERGIES Doxycycline MEDICATIONS hydrOXYchloroQUINE (PLAQUENIL) 200 mg tablet Take 1 tablet by mouth twice daily. atorvastatin (LIPITOR) 40 mg tablet Take 1 tablet by mouth daily at bedtime. gabapentin (NEURONTIN) 300 mg capsule Take 1 capsule by mouth daily at bedtime for 30 days. levothyroxine (SYNTHROID) 25 mcg tablet Take 1 tablet by mouth daily before breakfast. hydrOXYzine pamoate (VISTARIL) 25 mg capsule May take 1-2 tablets three times a day as needed for itching sertraline (ZOLOFT) 50 mg tablet Take 0.5 tablets by mouth once daily. amLODIPine (NORVASC) 2.5 mg tablet Take by mouth. Take one(1) tablet daily. therapeutic multivitamin w/ iron (THERAGRAN-M) 27-0.4 mg tablet Take 1 tablet by mouth once daily. fluticasone (FLONASE) 50 mcg/actuation nasal spray Use 2 Sprays in each nostril once daily. Rinse mouth after use. loratadine (CLARITIN) 10 mg tablet Take 1 tablet by mouth once daily. aspirin 81 mg chewable tablet Take 1 tablet by mouth once daily. Take 2 tabs of 81 mg for 1 month, then 1 tab there after, thanks. ofloxacin (FLOXIN) 0.3 % otic solution Use 10 Drops in both ears once daily for 7 days. fluticasone (FLONASE) 50 mcg/actuation nasal spray Use 2 Sprays in each nostril once daily. Rinse mouth after use. predniSONE (DELTASONE) 10 mg tablet TAKE 6 TABLETS BY MOUTH ON THE FIRST DAY, THEN DECREASE BY 1 TABLET EACH DAY UNTIL GONE (6-5-4-3-2-1) (Patient not taking: Reported on 04/27/2022) diclofenac (VOLTAREN) 1 % topical gel Apply 2 g to affected area four times daily. metoprolol tartrate, short acting, (LOPRESSOR) 25 mg tablet Take 1 tablet by mouth every 12 hours. (Patient not taking: Reported on 02/07/2022 ) aspirin 81 mg chewable tablet Aspirin Aspirin Active 81 MG DAILY July 21, 2019 3:47pm 07-21-2019 [facility] ([id number]) ferrous sulfate 325 mg (65 mg iron) tablet Take 1 tablet by mouth daily with breakfast. acetaminophen (TYLENOL) 325 mg tablet Take 2 tablets by mouth every 6 hours as needed. ascorbic acid, vitamin C, (VITAMIN C) 500 mg tablet Take 1 tablet by mouth once daily. Cholecalciferol, Vitamin D3, 1,000 unit cap Take 1 capsule by mouth once daily. FAMILY HISTORY Problem Relation Age of Onset Stroke Mother 68 Heart Mother Diabetes Father Alcohol/Drug Father Arthritis Sister sjogrens other (chest pain) Sister Breast Cancer Maternal Aunt 72 other (Other) Sister Hypertension Sister Breast Cancer Sister other (smoke) Sister Social History Tobacco Use Smoking status: Never Smokeless tobacco: Never Vaping Use Vaping Use: Never used Substance Use Topics Alcohol use: No Comment: occaisional maybe one a year Drug use: No Comment: no tattoos, no transfusions Review of Systems Constitutional: Negative for fever. HENT: Positive for ear discharge and ear pain. Negative for sinus pain and sore throat. Respiratory: Negative for cough. Cardiovascular: Negative for chest pain. Skin: Negative for itching and rash. Objective Blood pressure 134/72, pulse 94, temperature 36.7 C (98.1 F), resp. rate 16, weight 65.3 kg (144 lb), SpO2 98 %. Physical Exam Constitutional: General: She is not in acute distress. Appearance: She is not toxic-appearing or diaphoretic. HENT: Head: Normocephalic and atraumatic. Right Ear: Hearing, tympanic membrane, ear canal and external ear normal. Left Ear: Hearing and external ear normal. Tenderness present. A middle ear effusion (clear fluid) is present. Ears: Comments: Abrasion noted in base of left canal, no erythema or drainage. Pulmonary: Effort: Pulmonary effort is normal. No accessory muscle usage or respiratory distress. Lymphadenopathy: Cervical: No cervical adenopathy. Right cervical: No superficial cervical adenopathy. Left cervical: No superficial cervical adenopathy. Neurological: Mental Status: She is alert and oriented to person, place, and time. ASSESSMENT/PLAN: 1. ETD (Eustachian tube dysfunction), left - ICD9: 381.81, ICD10: H69.82 (primary diagnosis) -use medication as prescribed -follow up if symptoms persist, worsen, change - FLUTICASONE PROPIONATE 50 MCG/ACTUATION NASAL SPRAY,SUSPENSION 2. Ear canal abrasion, left, initial encounter - ICD9: 910.0, ICD10: S00.412A Discussed proper ear hygiene. F/u for continued/worsening s/s. - OFLOXACIN 0.3 % EAR DROPS Emiliano Acevedo 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 SEISMOGRAPH documented in this encounter [facility] 09-20-2022 Miscellaneous Notes There is no future appointment with Rheumatology. Please advise on Rx for short term (maybe 6 months supply) Pt is advised to schedule Rheumatology Appointment He Mayo Ma Patient has been identified by name and date of : Yes Former Dr Negron Patient. Last OV 01/2022 Requested Prescriptions Pending Prescriptions Disp Refills hydrOXYchloroQUINE (PLAQUENIL) 200 mg tablet 180 tablet 1 Sig: Take 1 tablet by mouth twice daily. RX INSTRUCTIONS: Patient aware RX will be sent to pharmacy. No need to notify patient. Starr Bardales Pss documented in this encounter [facility] 09-05-2022 History of Present illness Narrative 09/05/2022 Patient presents with: F/U 1 month SUBJECTIVE: This is a 71 year old that is here today for Above Complaints. Started on gabapentin for burning, stinging sensation and itching of left arm. Worse in the evening. Taking and tolerating without side effects. Helps at night. Doesn't notice to much during the day. PAST MEDICAL HISTORY Diagnosis Date Anxiety Asthma cough variant BPPV (benign paroxysmal positional vertigo) CAD (coronary artery disease) 06/2019 s/p cabg x4. Dr. 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 Jose Hernandes Sjogren syndrome ([facility]) 07/25/2005 + SSA, + SSB, low + RF Sjogren's syndrome ([facility]) Vaginal dryness, menopausal Seeing Anju Nell ALLERGIES Doxycycline MEDICATIONS Current Outpatient Medications Medication Sig gabapentin (NEURONTIN) 300 mg capsule Take 1 capsule by mouth daily at bedtime for 30 days. predniSONE (DELTASONE) 10 mg tablet TAKE 6 TABLETS BY MOUTH ON THE FIRST DAY, THEN DECREASE BY 1 TABLET EACH DAY UNTIL GONE (6-5-4-3-2-1) (Patient not taking: Reported on 04/27/2022) levothyroxine (SYNTHROID) 25 mcg tablet Take 1 tablet by mouth daily before breakfast. hydrOXYzine pamoate (VISTARIL) 25 mg capsule May take 1-2 tablets three times a day as needed for itching sertraline (ZOLOFT) 50 mg tablet Take 0.5 tablets by mouth once daily. amLODIPine (NORVASC) 2.5 mg tablet Take by mouth. Take one(1) tablet daily. diclofenac (VOLTAREN) 1 % topical gel Apply 2 g to affected area four times daily. metoprolol tartrate, short acting, (LOPRESSOR) 25 mg tablet Take 1 tablet by mouth every 12 hours. (Patient not taking: Reported on 02/07/2022 ) atorvastatin (LIPITOR) 40 mg tablet Take 1 tablet by mouth daily at bedtime. therapeutic multivitamin w/ iron (THERAGRAN-M) 27-0.4 mg tablet Take 1 tablet by mouth once daily. fluticasone (FLONASE) 50 mcg/actuation nasal spray Use 2 Sprays in each nostril once daily. Rinse mouth after use. loratadine (CLARITIN) 10 mg tablet Take 1 tablet by mouth once daily. aspirin 81 mg chewable tablet Aspirin Aspirin Active 81 MG DAILY July 21, 2019 3:47pm 07-21-2019 [facility] ([id number]) ferrous sulfate 325 mg (65 mg iron) tablet Take 1 tablet by mouth daily with breakfast. aspirin 81 mg chewable tablet Take 1 tablet by mouth once daily. Take 2 tabs of 81 mg for 1 month, then 1 tab there after, thanks. acetaminophen (TYLENOL) 325 mg tablet Take 2 tablets by mouth every 6 hours as needed. ascorbic acid, vitamin C, (VITAMIN C) 500 mg tablet Take 1 tablet by mouth once daily. Cholecalciferol, Vitamin D3, 1,000 unit cap Take 1 capsule by mouth once daily. No current facility-administered medications for this visit. Medications and allergies reviewed by this provider. SOCIAL HISTORY Social History Tobacco Use Smoking status: Never Smokeless tobacco: Never Vaping Use Vaping Use: Never used Substance Use Topics Alcohol use: No Comment: occaisional maybe one a year Drug use: No Comment: no tattoos, no transfusions REVIEW OF SYSTEMS All other reviewed and negative other than HPI. OBJECTIVE: BP 136/72 Pulse 83 Resp 16 Wt 65.3 kg (144 lb) SpO2 98% BMI 24.34 kg/m . Vital signs reviewed by this provider. APPEARANCE Well appearing, alert, in no acute distress, well-hydrated, well nourished. EYES conjunctiva and sclera normal. SKIN Skin color, texture, turgor normal, no suspicious rashes or lesions to exposed skin SPIROMETRY Never done SHINGRIX VACCINE(2 of 3) due on 11/02/2013 LDL CHOLESTEROL due on 04/15/2021 ADVANCE DIRECTIVE DISCUSSION Never done INFLUENZA(1) due on 05/31/2022 COVID-19 VACCINE(1) due on 09/08/2022 DTAP,TDAP,TD(2 - Td or Tdap) due on 03/16/2023 ANNUAL PCP TEAM CHRONIC DISEASE VISIT due on 04/27/2023 COLORECTAL CANCER SCREENING due on 06/22/2023 MAMMOGRAM due on 08/20/2023 DIABETES SCREEN due on 02/07/2025 LIPID SCREEN due on 09/08/2026 BONE DENSITY Completed HEPATITIS C SCREENING Completed PNEUMOCOCCAL: 65+ Completed ASSESSMENT/PLAN: 1. Controlled substance agreement signed - ICD9: V58.69, ICD10: Z79.899 (primary diagnosis) - - TOX SCREEN ROUT UR - PAIN PANEL, UR QUANT - GABAPENTIN 300 MG CAPSULE - PAIN PANEL, UR QUANT - SPECIMEN VALIDITY, URINE 2. Pruritus - ICD9: 698.9, ICD10: L29.9 - should also keep skin well hydrated - may use vistaril, OTC benadryl, hydrocortisone and ice as needed for itching - TOX SCREEN ROUT UR - PAIN PANEL, UR QUANT - GABAPENTIN 300 MG CAPSULE - PAIN PANEL, UR QUANT - SPECIMEN VALIDITY, URINE - follow-up in 6 months, sooner if needed 3. Burning sensation - ICD9: 782.0, ICD10: R20.8 - plan as above - TOX SCREEN ROUT UR - PAIN PANEL, UR QUANT - GABAPENTIN 300 MG CAPSULE - PAIN PANEL, UR QUANT - SPECIMEN VALIDITY, URINE Carolin Blanca APRN.ZUHAIR Prescription instructions reviewed with patient as applicable. Patient advised if symptoms do not improve or if symptoms worsen sooner, to contact their primary care physician. Potential red flag symptoms discussed with the patient. Reviewed appropriate action plan to take if red flag symptoms occur. Patient agreeable to treatment plan. I spent a total of 20 minutes on the date of the service which included preparing to see the patient, [id number] patient care, completing clinical documentation, obtaining and/or reviewing separately obtained history, performing a medically appropriate examination, counseling and educating the patient/family/caregiver, and ordering medications, tests, or procedures. documented in this encounter [facility] 08-21-2022 Miscellaneous Notes August 21, 2022 PID: [id number] Yanni Burroughs [address] [place] [address] Dear Ms. Burroughs, We are pleased to inform you that the results of your recent breast imaging exam on 08/20/2022 are normal. Early detection of cancer is very important. We also understand recommendations regarding breast cancer screening are controversial. Please discuss with your primary care provider which strategy is best for you and whether a mammogram is right for you. Your imaging studies and report will be kept on file at [facility] as part of your permanent medical record and are available for your continuing care. Thank you for allowing us to help in meeting your health care needs. Sincerely, Dr. Arroyo Interpreting Radiologist [facility] (Normal over 40) documented in this encounter [facility] 08-20-2022 History of Present illness Narrative Radiology Service Progress Note PATIENT NAME: Yanni Burroughs DATE OF SERVICE: August 20, 2022 TIME: 9:13 AM PATIENT IDENTITY VERIFICATION COMPLETED USING TWO (2) IDENTIFIERS: Name and Date of confirmed by patient verbally. FALL SCREENING: Has the patient had 2 falls in the last year or 1 fall with injury or currently using an Ambulatory Assistive Device (Walker, Cane, Wheelchair, Crutches, etc.)? No PATIENT GENDER DATA: Female. status: : No status: NO. PATIENT RELEVANT IMPLANT DATA REVIEWED: Not Applicable RADIOLOGY DEPARTMENT: Mammography PERIPHERAL IV DATA: Not applicable SIGNED BY: Nelli Jurado August 20, 2022 9:13 AM documented in this encounter [facility] 08-06-2022 Miscellaneous Notes Patient telephoned and made aware of message below. Scheduled for 09/05/22 for one month follow up. Will call in and schedule with dermatology. Carlota Jimenez LPN Please call patient and let her know I sent over prescription for gabapentin. This medication is to be taken before bed. This medication may make her drowsy so she should not drive or operate heavy machinery while taking. I would like her to follow-up with in one in the office. I have placed consult to dermatology so she can schedule at her convenience. Carolin Blanca APRN.ZUHAIR Patient telephoned, made aware of message below. Would like the referral to see if they're able to help with it and would also like a script for gabapentin in the meantime to [facility]. Carlota Jimenez LPN I can either place referral to dermatology or we could trial of gabapentin. This medication may make her drowsy so she shouldn't drive or operate heavy machinery while taking. Thanks, Carolin Blanca APRN.ZUHAIR Pt called in and reports that she has nerve itching and burning and saw Carolin Villafana CABINET FINISHER for it. She reports Carolin had told her to call in with an update. Pt reports she has been using the Vistaril and ice and is miserable. She states that they don't work. Pt is asking if she should have a dermatology consult. Please call and advise. documented in this encounter [facility] 04-27-2022 History of Present illness Narrative 04/27/2022 Patient presents with: Recheck: Seen in urgent care 04/20/22 for rash to left arm SUBJECTIVE: This is a 71 year old that is here today for Above Complaints. Seen In Urgent Care in [place] on 04/20/2022 for burning and stinging of the left upper and lower arm. Given prednisone for six days and vistaril. She doesn't thinks the prednisone helped much. Some relief with vistaril and ice application. Tried some topical benadryl which didn't seem to help much. She reports pain started about three weeks prior after getting a sunburn. Has had shingles in the past on that arm. She thinks this maybe brachioradial pruritis. Admits to chronic neck pain but denies it is any worse from her normal. Also denies fevers, rash, extremity numbness, tingling or weakness. Needs refill of levothyroxine. Taking as prescribed without side effects PAST MEDICAL HISTORY Diagnosis Date Anxiety Asthma cough variant BPPV (benign paroxysmal positional vertigo) CAD (coronary artery disease) 06/2019 s/p cabg x4. Dr. 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 Jose Hernandes Sjogren syndrome ([facility]) 07/25/2005 + SSA, + SSB, low + RF Sjogren's syndrome ([facility]) Vaginal dryness, menopausal Seeing Anju Nell ALLERGIES Doxycycline MEDICATIONS Current Outpatient Medications Medication Sig sertraline (ZOLOFT) 50 mg tablet Take 0.5 tablets by mouth once daily. amLODIPine (NORVASC) 2.5 mg tablet Take by mouth. Take one(1) tablet daily. hydrOXYchloroQUINE (PLAQUENIL) 200 mg tablet Take 1 tablet by mouth twice daily. diclofenac (VOLTAREN) 1 % topical gel Apply 2 g to affected area four times daily. metoprolol tartrate, short acting, (LOPRESSOR) 25 mg tablet Take 1 tablet by mouth every 12 hours. (Patient not taking: Reported on 02/07/2022 ) atorvastatin (LIPITOR) 40 mg tablet Take 1 tablet by mouth daily at bedtime. therapeutic multivitamin w/ iron (THERAGRAN-M) 27-0.4 mg tablet Take 1 tablet by mouth once daily. levothyroxine (SYNTHROID) 25 mcg tablet Take 1 tablet by mouth daily before breakfast. fluticasone (FLONASE) 50 mcg/actuation nasal spray Use 2 Sprays in each nostril once daily. Rinse mouth after use. loratadine (CLARITIN) 10 mg tablet Take 1 tablet by mouth once daily. aspirin 81 mg chewable tablet Aspirin Aspirin Active 81 MG DAILY July 21, 2019 3:47pm 07-21-2019 [facility] ([id number]) ferrous sulfate 325 mg (65 mg iron) tablet Take 1 tablet by mouth daily with breakfast. meclizine (ANTIVERT) 25 mg tab Take 1 tablet by mouth every 6 hours as needed (dizziness). aspirin 81 mg chewable tablet Take 1 tablet by mouth once daily. Take 2 tabs of 81 mg for 1 month, then 1 tab there after, thanks. acetaminophen (TYLENOL) 325 mg tablet Take 2 tablets by mouth every 6 hours as needed. ascorbic acid, vitamin C, (VITAMIN C) 500 mg tablet Take 1 tablet by mouth once daily. Cholecalciferol, Vitamin D3, 1,000 unit cap Take 1 capsule by mouth once daily. No current facility-administered medications for this visit. Medications and allergies reviewed by this provider. SOCIAL HISTORY Social History Tobacco Use Smoking status: Never Smoker Smokeless tobacco: Never Used Vaping Use Vaping Use: Never used Substance Use Topics Alcohol use: No Comment: occaisional maybe one a year Drug use: No Comment: no tattoos, no transfusions REVIEW OF SYSTEMS All other reviewed and negative other than HPI. OBJECTIVE: BP 132/86 Pulse 71 Temp 36.5 C (97.7 F) Resp 16 Wt 63 kg (138 lb 12.8 oz) SpO2 99% BMI 23.46 kg/m . Vital signs reviewed by this provider. APPEARANCE Well appearing, alert, in no acute distress, well-hydrated, well nourished. NECK: FROM without pain UPPER EXTREMITIES: 2+ radial pulse BLE. Hands grasps each and strong. No muscle wasting. Two small scabbed areas to left arm without any skin eruptions, surrounding erythema,swelling or drainage SPIROMETRY Never done SHINGRIX VACCINE(1 of 2) due on 11/02/2013 LDL CHOLESTEROL due on 04/15/2021 ADVANCE DIRECTIVE DISCUSSION Never done COVID-19 VACCINE(1) due on 09/08/2022 INFLUENZA(1) due on 05/31/2022 MAMMOGRAM due on 08/17/2022 DTAP,TDAP,TD(2 - Td or Tdap) due on 03/16/2023 ANNUAL PCP TEAM CHRONIC DISEASE VISIT due on 04/27/2023 COLORECTAL CANCER SCREENING due on 06/22/2023 DIABETES SCREEN due on 02/07/2025 LIPID SCREEN due on 09/08/2026 BONE DENSITY Completed HEPATITIS C SCREENING Completed PNEUMOCOCCAL: 65+ Completed ASSESSMENT/PLAN: 1. Pruritus - ICD9: 698.9, ICD10: L29.9 (primary diagnosis) - possibly related to sunburn which irritated underlying postherpetic neuralgia - no red flag symptoms - red flag symptoms discussed, verbalizes understanding - may use cool compresses. Also recommend OTC menthol lotion as needed. Discussed with patient try to itch area as this may aggravate it more, verbalizes understanding - CAPSAICIN 0.025 % TOPICAL CREAM - HYDROXYZINE PAMOATE 25 MG CAPSULE - follow-up if symptoms fail to improve, to ER with red flag symptoms 2. Acquired hypothyroidism - ICD9: 244.9, ICD10: E03.9 - LEVOTHYROXINE 25 MCG TABLET - TSH BLD Carolin Blanca APRN.ZUHAIR Prescription instructions reviewed with patient as applicable. Patient advised if symptoms do not improve or if symptoms worsen sooner, to contact their primary care physician. Potential red flag symptoms discussed with the patient. Reviewed appropriate action plan to take if red flag symptoms occur. Patient agreeable to treatment plan. I spent a total of 21 minutes on the date of the service which included preparing to see the patient, [id number] patient care, completing clinical documentation, performing a medically appropriate examination and counseling and educating the patient/family/caregiver. documented in this encounter [facility] 04-17-2022 Miscellaneous Notes Patient has been identified by name and date of : Yes Patient phones for refill(s): Pending Prescriptions Disp Refills SERTRALINE 50 MG TABLET 45 tablet 1 Sig: Take 0.5 tablets by mouth once daily. LINDA: No Date of last office visit in primary care: 09/08/21 Please advise. Thank you. Audelia Conrad LPN documented in this encounter [facility] 02-07-2022 History of Present illness Narrative cc; former Dr Garcia patient dx by her with Sjogren She has very dry eyes and uses a gel at night and various drops. She is ssa and ssb positive Doing well otherwise has oa of the hands. PAST MEDICAL HISTORY Diagnosis Date Anxiety Asthma cough variant BPPV (benign paroxysmal positional vertigo) CAD (coronary artery disease) 06/2019 s/p cabg x4. Dr. 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 Jose Hernandes Sjogren syndrome ([facility]) 07/25/2005 + SSA, + SSB, low + RF Sjogren's syndrome ([facility]) Vaginal dryness, menopausal Seeing Anju Camejo PAST SURGICAL HISTORY Procedure Laterality Date CABG (4) VEIN GRAFTS & ARTERIAL GRAFT(S) 06/15/2019 at [facility] by Dr. Blanton COLONOSCOPY 02/2001 COLONOSCOPY FLX DX W/COLLJ SPEC WHEN PFRMD 06/22/13 Colonoscopy CONIZATION CERVIX W/WO D&C RPR ELTRD EXC 09/1999 LEEP-Cervix ESOPHAGOGASTRODUODENOSCOPY TRANSORAL DIAGNOSTIC 03/28/2012 EGD LIG/TRNSXJ FLP TUBE ABDL/VAG APPR UNI/BI Tubal ligation PAST SURGICAL HISTORY OF Right 2016 ganglion cyst removal from thumb Social History Tobacco Use Smoking status: Never Smoker Smokeless tobacco: Never Used Vaping Use Vaping Use: Never used Substance Use Topics Alcohol use: No Comment: occaisional maybe one a year Drug use: No Comment: no tattoos, no transfusions FAMILY HISTORY Problem Relation Age of Onset Stroke Mother 68 Heart Mother Diabetes Father Alcohol/Drug Father Arthritis Sister sjogrens other (chest pain) Sister Breast Cancer Maternal Aunt 72 other (Other) Sister Hypertension Sister Breast Cancer Sister other (smoke) Sister Current Outpatient Medications Medication Sig amLODIPine (NORVASC) 2.5 mg tablet Take by mouth. Take one(1) tablet daily. hydrOXYchloroQUINE (PLAQUENIL) 200 mg tablet Take 1 tablet by mouth twice daily. sertraline (ZOLOFT) 50 mg tablet Take 0.5 tablets by mouth once daily. atorvastatin (LIPITOR) 40 mg tablet Take 1 tablet by mouth daily at bedtime. levothyroxine (SYNTHROID) 25 mcg tablet Take 1 tablet by mouth daily before breakfast. fluticasone (FLONASE) 50 mcg/actuation nasal spray Use 2 Sprays in each nostril once daily. Rinse mouth after use. loratadine (CLARITIN) 10 mg tablet Take 1 tablet by mouth once daily. aspirin 81 mg chewable tablet Aspirin Aspirin Active 81 MG DAILY July 21, 2019 3:47pm 07-21-2019 [facility] ([id number]) acetaminophen (TYLENOL) 325 mg tablet Take 2 tablets by mouth every 6 hours as needed. Cholecalciferol, Vitamin D3, 1,000 unit cap Take 1 capsule by mouth once daily. diclofenac (VOLTAREN) 1 % topical gel Apply 2 g to affected area four times daily. metoprolol tartrate, short acting, (LOPRESSOR) 25 mg tablet Take 1 tablet by mouth every 12 hours. (Patient not taking: Reported on 02/07/2022 ) therapeutic multivitamin w/ iron (THERAGRAN-M) 27-0.4 mg tablet Take 1 tablet by mouth once daily. ferrous sulfate 325 mg (65 mg iron) tablet Take 1 tablet by mouth daily with breakfast. meclizine (ANTIVERT) 25 mg tab Take 1 tablet by mouth every 6 hours as needed (dizziness). aspirin 81 mg chewable tablet Take 1 tablet by mouth once daily. Take 2 tabs of 81 mg for 1 month, then 1 tab there after, thanks. ascorbic acid, vitamin C, (VITAMIN C) 500 mg tablet Take 1 tablet by mouth once daily. No current facility-administered medications for this visit. ROS negative, no fever, no chills, no night sweats, heent sicca, no lacrimal or salivary glands. lungs negative neuro non focal no swollen joints neuro neg BP 143/84 Temp 36.9 C (98.4 F) (Temporal) Wt 62.1 kg (137 lb) BMI 23.15 kg/m Assessment and plan Sjogren syndrome long standing. 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 Will get Sjogren labs. OA of hands,will use voltaren gel. Will see her back in a year. Elsa Negron MD documented in this encounter [facility] 11-20-2021 History of Present illness Narrative Associated Order(s): Large Joint Arthro/Inj: L knee joint Blane Rabago MD Department of Orthopaedics Orthopaedics [address] [facility] [address] Dept: [phone] Dept November 20, 2021 CHIEF COMPLAINT: Established Patient and Pain of the Left Knee HPI Patient here today for 6 month post visit OA left knee with Maggy Vetovitz with injection given. Patient reports some improvement since scheduling the appointment, but would like an injection today. ASSESSMENT: M25.562, G89.29 Chronic pain of left knee (primary encounter diagnosis) M17.12 Primary osteoarthritis of left knee PLAN: Previously with cortisone injection with some help. Yanni Burroughs was advised as to contrast therapies and/or to take analgesics/anti-inflammatories as needed and all contraindications were reviewed. OBJECTIVE: Ms. Yanni Burroughs is a pleasant 71 year old in no apparent distress. Gen:There were no vitals taken for this visit. nl development, non obese, no deformities ENT: Normocephalic, normal hearing, moist mucosa CV: Pulses:DP/PT= 2+ and symmetric, capillary refill < 2 secs, no peripheral edema/varicosities Skin: no rash, bruising or lesions. Good turgor. Psych: cooperative and appropriate, alert and oriented x 3, good mood and affect. Musculoskeletal: Stable exam. Large Joint Arthro/Inj: L knee joint Informed Consent Consent Obtained: Verbal [place] Protocol A moment to CARE was completed. SIGN IN Sign in communication not applicable due to emergent procedure. Personnel directly involved with the procedure wore the appropriate PPE. Special Equipment: N/A Patient/Surrogate Stated/Verified: Patient name, Date of , Relevant allergies and Intended procedure TIME OUT Intended patient and procedure match the source document(s). Relevant labs, photos, and/or imaging studies have been reviewed. Correct side/site marked and visible. Medications required for procedure verified. No fire risk assessment and interventions applicable. No implant(s) inserted. 11/20/2021 2:51 PM The procedure site was prepped in the usual sterile fashion. Site: L knee joint Medications: 6 mg betamethasone acetate-betamethasone sodium phosphate 6 mg/mL Anesthetics: 4 mL lidocaine (PF) 10 mg/mL (1 %) Outcome: Tolerated well, no immediate complications Post-injection instructions were reviewed with the patient and the patient voiced understanding of these instructions. SIGN OUT No specimen collected. All instruments, equipment, possible retained foreign bodies accounted for. Post-procedure follow-up management communicated and Plan of Care Visit completed when applicable Supporting Subjective Information Below: Past Surgical History: PAST SURGICAL HISTORY Procedure Laterality Date CABG (4) VEIN GRAFTS & ARTERIAL GRAFT(S) 06/15/2019 at [facility] by Dr. Blanton COLONOSCOPY 02/2001 COLONOSCOPY FLX DX W/COLLJ SPEC WHEN PFRMD 06/22/13 Colonoscopy CONIZATION CERVIX W/WO D&C RPR ELTRD EXC 09/1999 LEEP-Cervix ESOPHAGOGASTRODUODENOSCOPY TRANSORAL DIAGNOSTIC 03/28/2012 EGD LIG/TRNSXJ FLP TUBE ABDL/VAG APPR UNI/BI Tubal ligation PAST SURGICAL HISTORY OF Right 2016 ganglion cyst removal from thumb Medications: Current Outpatient Medications Medication Sig sertraline (ZOLOFT) 50 mg tablet Take 0.5 tablets by mouth once daily. metoprolol tartrate, short acting, (LOPRESSOR) 25 mg tablet Take 1 tablet by mouth every 12 hours. atorvastatin (LIPITOR) 40 mg tablet Take 1 tablet by mouth daily at bedtime. therapeutic multivitamin w/ iron (THERAGRAN-M) 27-0.4 mg tablet Take 1 tablet by mouth once daily. hydrOXYchloroQUINE (PLAQUENIL) 200 mg tablet Take 1 tablet by mouth twice daily. levothyroxine (SYNTHROID) 25 mcg tablet Take 1 tablet by mouth daily before breakfast. fluticasone (FLONASE) 50 mcg/actuation nasal spray Use 2 Sprays in each nostril once daily. Rinse mouth after use. loratadine (CLARITIN) 10 mg tablet Take 1 tablet by mouth once daily. ascorbic acid, vitamin C, (VITAMIN C) 500 mg tablet Take 1 tablet by mouth once daily. Cholecalciferol, Vitamin D3, 1,000 unit cap Take 1 capsule by mouth once daily. aspirin 81 mg chewable tablet Aspirin Aspirin Active 81 MG DAILY July 21, 2019 3:47pm 07-21-2019 [facility] ([id number]) ferrous sulfate 325 mg (65 mg iron) tablet Take 1 tablet by mouth daily with breakfast. meclizine (ANTIVERT) 25 mg tab Take 1 tablet by mouth every 6 hours as needed (dizziness). aspirin 81 mg chewable tablet Take 1 tablet by mouth once daily. Take 2 tabs of 81 mg for 1 month, then 1 tab there after, thanks. acetaminophen (TYLENOL) 325 mg tablet Take 2 tablets by mouth every 6 hours as needed. No current facility-administered medications for this visit. Allergies: Doxycycline ROS: General (negative for fatigue, malaise, weight loss/gain) HEENT (negative for headache, earache, recent vision changes, sinus pain, sore throat) Respiratory (no recent shortness of breath, hemoptysis) CV (negative for chest tightness, palpitations) Musculoskeletal (see HPI) Psych (no depression, anxiety) Blane Rabago MD documented in this encounter [facility] 09-12-2021 Miscellaneous Notes CLinical information uploaded documented in this encounter [facility] documented as of this encounter (statuses as of 12/17/2021) [facility] History of Past illness Narrative* Problem Noted Date Resolved Date Chest pain 06/11/2019 06/19/2019 Other specified rheumatoid arthritis, multiple s ites 12/15/2015 01/02/2018 Vertigo 11/01/2014 12/13/2016 Primary Sjogren's syndrome 08/24/201112/13 Other acquired deformity of toe 03/31/2010 05/07/2016 Sjogren syndrome 11/04/2009 08/24/2011 Sprain of neck 01/26/2009 05/07/2016 Cough variant asthma 12/16/2008 12/13/2016 documented as of this encounter (statuses as of 02/07/2022) [facility] History of Past illness Narrative* Problem Noted Date Resolved Date Chest pain 06/11/2019 06/19/2019 Other specified rheumatoid arthritis, multiple s ites 12/15/2015 01/02/2018 Vertigo 11/01/2014 12/13/2016 Primary Sjogren's syndrome 08/24/201112/13 Other acquired deformity of toe 03/31/2010 05/07/2016 Sjogren syndrome 11/04/2009 08/24/2011 Sprain of neck 01/26/2009 05/07/2016 Cough variant asthma 12/16/2008 12/13/2016 documented as of this encounter (statuses as of 03/02/2022) [facility] History of Past illness Narrative* Problem Noted Date Resolved Date Chest pain 06/11/2019 06/19/2019 Other specified rheumatoid arthritis, multiple s ites 12/15/2015 01/02/2018 Vertigo 11/01/2014 12/13/2016 Primary Sjogren's syndrome 08/24/201112/13 Other acquired deformity of toe 03/31/2010 05/07/2016 Sjogren syndrome 11/04/2009 08/24/2011 Sprain of neck 01/26/2009 05/07/2016 Cough variant asthma 12/16/2008 12/13/2016 documented as of this encounter (statuses as of 04/17/2022) [facility] History of Past illness Narrative* Problem Noted Date Resolved Date Chest pain 06/11/2019 06/19/2019 Other specified rheumatoid arthritis, multiple s ites 12/15/2015 01/02/2018 Vertigo 11/01/2014 12/13/2016 Primary Sjogren's syndrome 08/24/201112/13 Other acquired deformity of toe 03/31/2010 05/07/2016 Sjogren syndrome 11/04/2009 08/24/2011 Sprain of neck 01/26/2009 05/07/2016 Cough variant asthma 12/16/2008 12/13/2016 documented as of this encounter (statuses as of 04/27/2022) [facility] History of Past illness Narrative* Problem Noted Date Resolved Date Chest pain 06/11/2019 06/19/2019 Other specified rheumatoid arthritis, multiple s ites 12/15/2015 01/02/2018 Vertigo 11/01/2014 12/13/2016 Primary Sjogren's syndrome 08/24/201112/13 Other acquired deformity of toe 03/31/2010 05/07/2016 Sjogren syndrome 11/04/2009 08/24/2011 Sprain of neck 01/26/2009 05/07/2016 Cough variant asthma 12/16/2008 12/13/2016 documented as of this encounter (statuses as of 08/06/2022) [facility] History of Past illness Narrative* Problem Noted Date Resolved Date Chest pain 06/11/2019 06/19/2019 Other specified rheumatoid arthritis, multiple s ites 12/15/2015 01/02/2018 Vertigo 11/01/2014 12/13/2016 Primary Sjogren's syndrome 08/24/201112/13 Other acquired deformity of toe 03/31/2010 05/07/2016 Sjogren syndrome 11/04/2009 08/24/2011 Sprain of neck 01/26/2009 05/07/2016 Cough variant asthma 12/16/2008 12/13/2016 documented as of this encounter (statuses as of 08/23/2022) [facility] History of Past illness Narrative* Problem Noted Date Resolved Date Chest pain 06/11/2019 06/19/2019 Other specified rheumatoid arthritis, multiple s ites 12/15/2015 01/02/2018 Vertigo 11/01/2014 12/13/2016 Primary Sjogren's syndrome 08/24/201112/13 Other acquired deformity of toe 03/31/2010 05/07/2016 Sjogren syndrome 11/04/2009 08/24/2011 Sprain of neck 01/26/2009 05/07/2016 Cough variant asthma 12/16/2008 12/13/2016 documented as of this encounter (statuses as of 09/05/2022) [facility] History of Past illness Narrative* Problem Noted Date Resolved Date Chest pain 06/11/2019 06/19/2019 Other specified rheumatoid arthritis, multiple s ites 12/15/2015 01/02/2018 Vertigo 11/01/2014 12/13/2016 Primary Sjogren's syndrome 08/24/201112/13 Other acquired deformity of toe 03/31/2010 05/07/2016 Sjogren syndrome 11/04/2009 08/24/2011 Sprain of neck 01/26/2009 05/07/2016 Cough variant asthma 12/16/2008 12/13/2016 documented as of this encounter (statuses as of 09/22/2022) [facility] History of Past illness Narrative* Problem Noted Date Resolved Date Chest pain 06/11/2019 06/19/2019 Other specified rheumatoid arthritis, multiple s ites 12/15/2015 01/02/2018 Vertigo 11/01/2014 12/13/2016 Primary Sjogren's syndrome 08/24/201112/13 Other acquired deformity of toe 03/31/2010 05/07/2016 Sjogren syndrome 11/04/2009 08/24/2011 Sprain of neck 01/26/2009 05/07/2016 Cough variant asthma 12/16/2008 12/13/2016 documented as of this encounter (statuses as of 10/10/2022) [facility] of Past illness Narrative* Problem Noted Date Resolved Date Chest pain 06/11/2019 06/19/2019 Other specified rheumatoid arthritis, multiple s ites 12/15/2015 01/02/2018 Vertigo 11/01/2014 12/13/2016 Primary Sjogren's syndrome 08/24/201112/13 Other acquired deformity of toe 03/31/2010 05/07/2016 Sjogren syndrome 11/04/2009 08/24/2011 Sprain of neck 01/26/2009 05/07/2016 Cough variant asthma 12/16/2008 12/13/2016 documented as of this encounter (statuses as of 11/13/2022) [facility] History of Past illness Narrative* Problem Noted Date Resolved Date Chest pain 06/11/2019 06/19/2019 Other specified rheumatoid arthritis, multiple s ites 12/15/2015 01/02/2018 Vertigo 11/01/2014 12/13/2016 Primary Sjogren's syndrome 08/24/201112/13 Other acquired deformity of toe 03/31/2010 05/07/2016 Sjogren syndrome 11/04/2009 08/24/2011 Sprain of neck 01/26/2009 05/07/2016 Cough variant asthma 12/16/2008 12/13/2016 documented as of this encounter (statuses as of 11/21/2022) [facility] History of Past illness Narrative* Problem Noted Date Resolved Date Chest pain 06/11/2019 06/19/2019 Other specified rheumatoid arthritis, multiple s ites 12/15/2015 01/02/2018 Vertigo 11/01/2014 12/13/2016 Primary Sjogren's syndrome 08/24/201112/13 Other acquired deformity of toe 03/31/2010 05/07/2016 Sjogren syndrome 11/04/2009 08/24/2011 Sprain of neck 01/26/2009 05/07/2016 Cough variant asthma 12/16/2008 12/13/2016 documented as of this encounter (statuses as of 03/07/2023) [facility] History of Past illness Narrative* Problem Noted Date Resolved Date Chest pain 06/11/2019 06/19/2019 Other specified rheumatoid arthritis, multiple s ites 12/15/2015 01/02/2018 Vertigo 11/01/2014 12/13/2016 Primary Sjogren's syndrome 08/24/201112/13 Other acquired deformity of toe 03/31/2010 05/07/2016 Sjogren syndrome 11/04/2009 08/24/2011 Sprain of neck 01/26/2009 05/07/2016 Cough variant asthma 12/16/2008 12/13/2016 documented as of this encounter (statuses as of 03/18/2023) [facility] History of Past illness Narrative* Problem Noted Date Diagnosed Date Resolved Date Chest pain 06/11/2019 06/19/2019 Other specified rheumatoid a rthritis, multiple sites 12/15/2015 01/02/2018 Vertigo 11/01/2014 12/13/2016 Primary Sjogren's syndrome 08/24/2011 0 12/13/2016 Other acquired deformity of toe 03/31/2010 05/07/2016 Sjogren syndrome 11/04/2009 08/24/2011 Sprain of neck 01/26/2009 05/07/2016 Cough variant asthma 12/16/2008 017 documented as of this encounter (statuses as of 05/01/2023) [facility] History of Past illness Narrative* Problem Noted Date Diagnosed Date Resolved Date Chest pain 06/11/2019 06/19/2019 Other specified rheumatoid a rthritis, multiple sites 12/15/2015 01/02/2018 Vertigo 11/01/2014 12/13/2016 Primary Sjogren's syndrome 08/24/2011 0 12/13/2016 Other acquired deformity of toe 03/31/2010 05/07/2016 Sjogren syndrome 11/04/2009 08/24/2011 Sprain of neck 01/26/2009 05/07/2016 Cough variant asthma 12/16/2008 017 documented as of this encounter (statuses as of 05/03/2023) [facility] History of Past illness Narrative* Problem Noted Date Diagnosed Date Resolved Date Chest pain 06/11/2019 06/19/2019 Other specified rheumatoid a rthritis, multiple sites 12/15/2015 01/02/2018 Vertigo 11/01/2014 12/13/2016 Primary Sjogren's syndrome 08/24/2011 0 12/13/2016 Other acquired deformity of toe 03/31/2010 05/07/2016 Sjogren syndrome 11/04/2009 08/24/2011 Sprain of neck 01/26/2009 05/07/2016 Cough variant asthma 12/16/2008 017 documented as of this encounter (statuses as of 05/14/2023) [facility] of Past illness Narrative* Problem Noted Date Diagnosed Date Resolved Date Chest pain 06/11/2019 06/19/2019 Other specified rheumatoid a rthritis, multiple sites 12/15/2015 01/02/2018 Vertigo 11/01/2014 12/13/2016 Primary Sjogren's syndrome 08/24/2011 0 12/13/2016 Other acquired deformity of toe 03/31/2010 05/07/2016 Sjogren syndrome 11/04/2009 08/24/2011 Sprain of neck 01/26/2009 05/07/2016 Cough variant asthma 12/16/2008 017 documented as of this encounter (statuses as of 05/16/2023) [facility] History of Past illness Narrative* Problem Noted Date Diagnosed Date Resolved Date Chest pain 06/11/2019 06/19/2019 Other specified rheumatoid a rthritis, multiple sites 12/15/2015 01/02/2018 Vertigo 11/01/2014 12/13/2016 Primary Sjogren's syndrome 08/24/2011 0 12/13/2016 Other acquired deformity of toe 03/31/2010 05/07/2016 Sjogren syndrome 11/04/2009 08/24/2011 Sprain of neck 01/26/2009 05/07/2016 Cough variant asthma 12/16/2008 017 documented as of this encounter (statuses as of 05/20/2023) [facility] of Past illness Narrative* Problem Noted Date Diagnosed Date Resolved Date Chest pain 06/11/2019 06/19/2019 Other specified rheumatoid a rthritis, multiple sites 12/15/2015 01/02/2018 Vertigo 11/01/2014 12/13/2016 Primary Sjogren's syndrome 08/24/2011 0 12/13/2016 Other acquired deformity of toe 03/31/2010 05/07/2016 Sjogren syndrome 11/04/2009 08/24/2011 Sprain of neck 01/26/2009 05/07/2016 Cough variant asthma 12/16/2008 017 documented as of this encounter (statuses as of 05/27/2023) [facility] of Past illness Narrative* Problem Noted Date Diagnosed Date Resolved Date Chest pain 06/11/2019 06/19/2019 Other specified rheumatoid a rthritis, multiple sites 12/15/2015 01/02/2018 Vertigo 11/01/2014 12/13/2016 Primary Sjogren's syndrome 08/24/2011 0 12/13/2016 Other acquired deformity of toe 03/31/2010 05/07/2016 Sjogren syndrome 11/04/2009 08/24/2011 Sprain of neck 01/26/2009 05/07/2016 Cough variant asthma 12/16/2008 017 documented as of this encounter (statuses as of 05/28/2023) [facility] History of Past illness Narrative* Problem Noted Date Diagnosed Date Resolved Date Chest pain 06/11/2019 06/19/2019 Other specified rheumatoid a rthritis, multiple sites 12/15/2015 01/02/2018 Vertigo 11/01/2014 12/13/2016 Primary Sjogren's syndrome 08/24/2011 0 12/13/2016 Other acquired deformity of toe 03/31/2010 05/07/2016 Sjogren syndrome 11/04/2009 08/24/2011 Sprain of neck 01/26/2009 05/07/2016 Cough variant asthma 12/16/2008 017 documented as of this encounter (statuses as of 08/04/2023) [facility] History of Past illness Narrative* Problem Noted Date Diagnosed Date Resolved Date Chest pain 06/11/2019 06/19/2019 Other specified rheumatoid a rthritis, multiple sites 12/15/2015 01/02/2018 Vertigo 11/01/2014 12/13/2016 Primary Sjogren's syndrome 08/24/2011 0 12/13/2016 Other acquired deformity of toe 03/31/2010 05/07/2016 Sjogren syndrome 11/04/2009 08/24/2011 Sprain of neck 01/26/2009 05/07/2016 Cough variant asthma 12/16/2008 017 documented as of this encounter (statuses as of 08/13/2023) [facility] History of Past illness Narrative* Problem Noted Date Diagnosed Date Resolved Date Chest pain 06/11/2019 06/19/2019 Other specified rheumatoid a rthritis, multiple sites 12/15/2015 01/02/2018 Vertigo 11/01/2014 12/13/2016 Primary Sjogren's syndrome 08/24/2011 0 12/13/2016 Other acquired deformity of toe 03/31/2010 05/07/2016 Sjogren syndrome 11/04/2009 08/24/2011 Sprain of neck 01/26/2009 05/07/2016 Cough variant asthma 12/16/2008 017 documented as of this encounter (statuses as of 08/29/2023) [facility] of Past illness Narrative* Problem Noted Date Diagnosed Date Resolved Date Chest pain 06/11/2019 06/19/2019 Other specified rheumatoid a rthritis, multiple sites 12/15/2015 01/02/2018 Vertigo 11/01/2014 12/13/2016 Primary Sjogren's syndrome 08/24/2011 0 12/13/2016 Other acquired deformity of toe 03/31/2010 05/07/2016 Sjogren syndrome 11/04/2009 08/24/2011 Sprain of neck 01/26/2009 05/07/2016 Cough variant asthma 12/16/2008 017 documented as of this encounter (statuses as of 09/03/2023) [facility] History of Past illness Narrative* Problem Noted Date Diagnosed Date Resolved Date Chest pain 06/11/2019 06/19/2019 Other specified rheumatoid a rthritis, multiple sites 12/15/2015 01/02/2018 Vertigo 11/01/2014 12/13/2016 Primary Sjogren's syndrome 08/24/2011 0 12/13/2016 Other acquired deformity of toe 03/31/2010 05/07/2016 Sjogren syndrome 11/04/2009 08/24/2011 Sprain of neck 01/26/2009 05/07/2016 Cough variant asthma 12/16/2008 017 documented as of this encounter (statuses as of 09/09/2023) [facility] of Past illness Narrative* Problem Noted Date Diagnosed Date Resolved Date Chest pain 06/11/2019 06/19/2019 Other specified rheumatoid a rthritis, multiple sites 12/15/2015 01/02/2018 Vertigo 11/01/2014 12/13/2016 Primary Sjogren's syndrome 08/24/2011 0 12/13/2016 Other acquired deformity of toe 03/31/2010 05/07/2016 Sjogren syndrome 11/04/2009 08/24/2011 Sprain of neck 01/26/2009 05/07/2016 Cough variant asthma 12/16/2008 017 documented as of this encounter (statuses as of 09/29/2023) [facility] History of Past illness Narrative* Problem Noted Date Diagnosed Date Resolved Date Chest pain 06/11/2019 06/19/2019 Other specified rheumatoid a rthritis, multiple sites 12/15/2015 01/02/2018 Vertigo 11/01/2014 12/13/2016 Primary Sjogren's syndrome 08/24/2011 0 12/13/2016 Other acquired deformity of toe 03/31/2010 05/07/2016 Sjogren syndrome 11/04/2009 08/24/2011 Sprain of neck 01/26/2009 05/07/2016 Cough variant asthma 12/16/2008 017 RA (rheumatoid arthritis) Overview: EYE EXAM done 10/17/18 normal plaquenil Sjogren's syndrome Plaquenil 09/2018 early glaucoma documented as of this encounter (statuses as of 11/07/2023) [facility] Diagnosis Chronic pain of left knee- Primary Pain in joint, lower leg Primary osteoarthritis of left knee Primary localized osteoarthrosis, lower leg [facility] Diagnosis Long-term use of Plaquenil- Primary Encounter for long-term (current) use of other medications Sicca syndrome (HCC) Sicca syndrome [facility] Depression, unspecified depression type [facility] Diagnosis Pruritus- Primary Unspecified pruritic disorder Acquired hypothyroidism Unspecified hypothyroidism [facility] Diagnosis Pruritus- Primary Unspecified pruritic disorder [facility] Diagnosis Controlled substance agreement signed- Primary Encounter for long-term (current) use of other medications Pruritus Unspecified pruritic disorder Burning sensation Disturbance of skin sensation documented in this encounter [facility] note* Diagnosis Long-term use of Plaquenil- Primary Encounter for long-term (current) use of other medications Sicca syndrome (HCC) Sicca syndrome documented in this encounter [facility] note* Diagnosis ETD (Eustachian tube dysfunction), left- Primary Ear canal abrasion, left, initial encounter documented in this encounter [facility] note* Diagnosis Depression, unspecified depression type documented in this encounter [facility] note* Diagnosis Need for vaccination- Primary Need for prophylactic vaccination and inoculation against unspecified single disease documented in this encounter [facility] note* Diagnosis Hypothyroidism, acquired- Primary Unspecified hypothyroidism Depression, unspecified depression type Coronary artery disease involving stebbins heart without angina pectoris, unspecified vessel or lesion type Acute midline back pain, unspecified back location Sjogren's syndrome with keratoconjunctivitis sicca (HCC) Major depressive disorder, recurrent, in partial remission (HCC) Major depressive disorder, recurrent episode, in partial or unspecified remission [facility] Diagnosis Chronic midline low back pain without sciatica- Primary [facility] Diagnosis Chronic midline low back pain without sciatica- Primary [facility] Diagnosis Chronic midline low back pain without sciatica- Primary [facility] Diagnosis Chronic midline low back pain without sciatica- Primary [facility] Diagnosis Chronic midline low back pain without sciatica- Primary [facility] Diagnosis Chronic midline low back pain without sciatica- Primary documented in this encounter [facility] note* Diagnosis Chronic midline low back pain without sciatica- Primary 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 pectoris, unspecified vessel or lesion type Rheumatoid arthritis, involving unspecified site, unspecified whether rheumatoid factor present (HCC) Major depressive disorder, recurrent, in partial remission (HCC) Major depressive disorder, recurrent episode, in partial or unspecified remission S/P CABG (coronary artery bypass graft) Postsurgical aortocoronary bypass status Pruritus Unspecified pruritic disorder documented in this encounter [facility] for referral (narrative)* Diagnostic Procedure Only (Routine) - Closed Specialty Diagnoses / Procedures Referred By Contac t Referred To Contact XR IMAGING Diagnoses Acute midline back pain, unspecified back location Procedures XR THORACIC GENERAL 3V AP/LAT/SWIMMERS RADEX SPINE THORACIC 3 VIEWS PodlogarCarolin 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 [employer] [address] [place] [address] Xr Imaging Referral ID Status Reason Start Date Expiration Date V isits Requested Visits Authorized [id number] Closed Auto-Generate d Referral 03/06/2023 04/04/2024 1 1 * Diagnostic Procedure Only (Routine) - Closed Specialty Diagnoses / Procedures Referred By Contac t Referred To Contact XR IMAGING Diagnoses Acute midline back pain, unspecified back location Procedures XR LUMBAR GENERAL 3V AP/LAT/L5-S1 RADEX SPINE LUMBOSACRAL 2/3 VIEWS PodlogarCarolin 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 [employer] [address] [place] [address] Xr Imaging Referral ID Status Reason Start Date Expiration Date V isits Requested Visits Authorized [id number] Closed Auto-Generate d Referral 03/06/2023 04/04/2024 1 1 [facility] for referral (narrative)* Diagnostic Procedure Only (Routine) - Authorized Specialty Diagnoses / Procedures Referred By Contac t Referred To Contact BR IMAGING Diagnoses Screening mammogram, encounter for Procedures LUIS ANTONIO SCREENING SCREENING MAMMOGRAPHY BI 2-VIEW BREAST INC CAD Ray Rivas MD [address] [place] [address] [facility] [address] [place] [address] Referral ID Status Reason Start Date Expiration Date Visits Requested Visits Authorized [id number] Authorized Auto-Generat ed Referral 07/31/2023 08/29/2024 1 1 [facility] for referral (narrative)* Outpatient Procedure (Routine) - Pending Review Specialty Diagnoses / Procedures Referred By Frederic rapp Referred To Contact [facility] Diagnoses Screening for colon cancer Procedures COLONOSCOPY SCREENING COLONOSCOPY FLX DX W/COLLJ SPEC WHEN PFRMD Carolin Blanca APRN.CNP [address] [place] [address] [facility] [address] [place] [address] Referral ID Status Reason Start Date Expiration Date Visits Requested Visits Authorized [id number] Pending Review Auto-Generat ed Referral 09/06/2023 09/06/2024 1 1 [facility] for visit Narrative* Diagnostic Procedure Only (Routine) - Closed Specialty Diagnoses / Procedures Referred By Frederic rapp Referred To Contact [facility] IM[facility]ING Diagnoses Visit for screening mammogram Procedures LUIS ANTONIO SCREENING SCREENING MAMMOGRAPHY BI 2-VIEW BREAST INC CAD Ray Rivas MD [address] [place] [address] [facility] [address] [place] [id number] Referral ID Status Reason Start Date Expiration Date V isits Requested Visits Authorized [id number] Closed Auto-Generate d Referral 07/24/2021 08/23/2022 1 1 [facility] Summary Purpose Family History No Family History Records FoundNo Family History Records FoundNo Family History Records FoundNo Family History Records Found Advance Directives Documents on File Type Date 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 Advance Directive(s) 06/11/2019 6:54 PM Advance Directive(s) 12/30/2015 10:41 AM Advance Directive(s) 12/19/2015 9:28 AM Latest Code Status on File Code Status Date Activated Date Inactivated Comments Full Code 06/21/2019 2:42 PM Documents on File Type Date 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 Advance Directive(s) 06/11/2019 6:54 PM Advance Directive(s) 12/30/2015 10:41 AM Advance Directive(s) 12/19/2015 9:28 AM Latest Code Status on File Code Status Date Activated Date Inactivated Comments Full Code 06/21/2019 2:42 PM Latest Code Status on File Code Status Date Activated Date Inactivated Comments Full Code 06/21/2019 2:42 PM Latest Code Status on File Code Status Date Activated Date Inactivated Comments Full Code 06/21/2019 2:42 PM Hospital Course Note HNO ID: [id number] Author: Galina del rio (Zuhair) ZUHAIR Escobar Service: Cardiovascular Surgery Author Type: Nurse Practitioner Type: Discharge Summary Filed: 06/19/2019 10:07 AM Note Text: Attestation signed by Benson Blanton at 06/19/2019 7:20 PM Attending Note I have personally performed a face to face assessment of the patient and have reviewed the PA/[employer] PORTF[employer]IO MANAGER note. My dunbar findings include: Assessment/Plan are as above Other additions or changes: None Signature: Benson Blanton MD Date: 06/19/2019 Time: 7:20 PM DISCHARGE SUMMARY PATIENT NAME: Yanni Burroughs Code Status: Not on file Highest Readmission Risk Score: 18 The 30 day readmissions risk score is derived from an internally validated risk model which evaluates patient level characteristics, utilization history, medication orders and lab results up until the day of discharge (more content not included)... Medications Administered Section Inactive Administered Medications - up to 3 most recent administrations Medication Order MAR Action Action Date Dose Rate Site betamethasone acetate-betamethasone sodium phosphate 6 mg injection (CELESTONE) 6 mg, Injection - FOR ORTHO USE ONLY, ONE TIME INJECTION, 1 dose, Starting on 11/20/21 at 1451, Until 11/20/21 at 1451 Given 11/20/2021 2:51 PM EST 6 mg lidocaine (PF) 10 mg/mL (1 %) 4 mL injection (XYLOCAINE) 4 mL, Injection - FOR ORTHO USE ONLY, ONE TIME INJECTION, 1 dose, Starting on 11/20/21 at 1451, Until 11/20/21 at 1451 Given 11/20/2021 2:51 PM EST 4 mL Reason for Referral Specialty Diagnoses / Procedures Referred By Contac t Referred To Contact Elsa Negron MD [address] [place] [address] Referral ID Status Reason Start Date Expiration Date V isits Requested Visits Authorized [id number] Authorized 09/30/2021 02/07/2023 1 1 Specialty Diagnoses / Procedures Referred By Contac t Referred To Contact Dermatology Diagnoses Pruritus Procedures CONSULT TO DERMATOLOGY Podlog[facility], [facility] Fernandez.RECORDER HELPER [employer] [address] [place] [address] Referral ID Status Reason Start Date Expiration Date Visits Requested Visits Authorized [id number] Ref Not Required PCP Requested Referral 08/06/2022 08/06/2023 1 1 Specialty Diagnoses / Procedures Referred By Contac t Referred To Contact [facility] Diagnoses Chronic midline low back pain without sciatica Procedures CONSULT TO PHYSICAL THERAPY PHYSICAL THERAPY EVALUATION HIGH COMPLEX 45 MINS Podlogar, APRN. CarolinRECORDER HELPER SEISMOGRAPH [address] [place] [address] [facility] [place] [address] [place] [address] Referral ID Status Reason Start Date Expiration Date Visits Requested Visits Authorized [id number] Pending Review Auto-Generat ed Referral 03/12/2023 03/11/2024 1 1 Additional Source Comments INFORMATION SOURCE (unrecogn ized section and content) DATE CREATED AUTHOR AUTHOR'S ORGANIZ ATION 07/27/2019 [facility] DATE CREATED AUTHOR AUTHOR'S ORGANIZ ATION 11/30/2021 [facility] DATE CREATED AUTHOR AUTHOR'S ORGANIZ ATION 10/11/2023 [facility] Source Comments (unrecognize d section and content) In the event this informatio n is protected by the Federal Confidentiality of Alcohol and Drug Abuse Patient Records regulations: The Federal rules restrict any use of the information to criminally investigate or prosecute any alcohol or drug abuse patient.[facility] the event this information is protected by the Federal Confidentiality of Alcohol and Drug Abuse Patient Records regulations: The Federal rules restrict any use of the information to criminally investigate or prosecute any alcohol or drug abuse patient.[facility] HospitalIn the event this information is protected by the Federal Confidentiality of Alcohol and Drug Abuse Patient Records regulations: The Federal rules restrict any use of the information to criminally investigate or prosecute any alcohol or drug abuse patient.[facility] the event this information is protected by the Federal Confidentiality of Alcohol and Drug Abuse Patient Records regulations: The Federal rules restrict any use of the information to criminally investigate or prosecute any alcohol or drug abuse patient.[facility] the event this information is protected by the Federal Confidentiality of Alcohol and Drug Abuse Patient Records regulations: The Federal rules restrict any use of the information to criminally investigate or prosecute any alcohol or drug abuse patient.[facility] the event this information is protected by the Federal Confidentiality of Alcohol and Drug Abuse Patient Records regulations: The Federal rules restrict any use of the information to criminally investigate or prosecute any alcohol or drug abuse patient.[facility] HospitalIn the event this information is protected by the Federal Confidentiality of Alcohol and Drug Abuse Patient Records regulations: The Federal rules restrict any use of the information to criminally investigate or prosecute any alcohol or drug abuse patient.[facility] Hospital[facility] the event this information is protected by the Federal Confidentiality of Alcohol and Drug Abuse Patient Records regulations: The Federal rules restrict any use of the information to criminally investigate or prosecute any alcohol or drug abuse patient.[facility] HospitalIn the event this information is protected by the Federal Confidentiality of Alcohol and Drug Abuse Patient Records regulations: The Federal rules restrict any use of the information to criminally investigate or prosecute any alcohol or drug abuse patient.[facility] the event this information is protected by the Federal Confidentiality of Alcohol and Drug Abuse Patient Records regulations: The Federal rules restrict any use of the information to criminally investigate or prosecute any alcohol or drug abuse patient.[facility]In the event this information is protected by the Federal Confidentiality of Alcohol and Drug Abuse Patient Records regulations: The Federal rules restrict any use of the information to criminally investigate or prosecute any alcohol or drug abuse patient.[facility] HospitalIn the event this information is protected by the Federal Confidentiality of Alcohol and Drug Abuse Patient Records regulations: The Federal rules restrict any use of the information to criminally investigate or prosecute any alcohol or drug abuse patient.[facility] the event this information is protected by the Federal Confidentiality of Alcohol and Drug Abuse Patient Records regulations: The Federal rules restrict any use of the information to criminally investigate or prosecute any alcohol or drug abuse patient.[facility] the event this information is protected by the Federal Confidentiality of Alcohol and Drug Abuse Patient Records regulations: The Federal rules restrict any use of the information to criminally investigate or prosecute any alcohol or drug abuse patient.[facility] HospitalIn the event this information is protected by the Federal Confidentiality of Alcohol and Drug Abuse Patient Records regulations: The Federal rules restrict any use of the information to criminally investigate or prosecute any alcohol or drug abuse patient.[facility] Hospital[facility] the event this information is protected by the Federal Confidentiality of Alcohol and Drug Abuse Patient Records regulations: The Federal rules restrict any use of the information to criminally investigate or prosecute any alcohol or drug abuse patient.[facility] HospitalIn the event this information is protected by the Federal Confidentiality of Alcohol and Drug Abuse Patient Records regulations: The Federal rules restrict any use of the information to criminally investigate or prosecute any alcohol or drug abuse patient.[facility] HospitalIn the event this information is protected by the Federal Confidentiality of Alcohol and Drug Abuse Patient Records regulations: The Federal rules restrict any use of the information to criminally investigate or prosecute any alcohol or drug abuse patient.[facility] HospitalIn the event this information is protected by the Federal Confidentiality of Alcohol and Drug Abuse Patient Records regulations: The Federal rules restrict any use of the information to criminally investigate or prosecute any alcohol or drug abuse patient.[facility] HospitalIn the event this information is protected by the Federal Confidentiality of Alcohol and Drug Abuse Patient Records regulations: The Federal rules restrict any use of the information to criminally investigate or prosecute any alcohol or drug abuse patient.[facility] HospitalIn the event this information is protected by the Federal Confidentiality of Alcohol and Drug Abuse Patient Records regulations: The Federal rules restrict any use of the information to criminally investigate or prosecute any alcohol or drug abuse patient.[facility] HospitalIn the event this information is protected by the Federal Confidentiality of Alcohol and Drug Abuse Patient Records regulations: The Federal rules restrict any use of the information to criminally investigate or prosecute any alcohol or drug abuse patient.[facility] HospitalIn the event this information is protected by the Federal Confidentiality of Alcohol and Drug Abuse Patient Records regulations: The Federal rules restrict any use of the information to criminally investigate or prosecute any alcohol or drug abuse patient.[facility] HospitalIn the event this information is protected by the Federal Confidentiality of Alcohol and Drug Abuse Patient Records regulations: The Federal rules restrict any use of the information to criminally investigate or prosecute any alcohol or drug abuse patient.[facility] HospitalIn the event this information is protected by the Federal Confidentiality of Alcohol and Drug Abuse Patient Records regulations: The Federal rules restrict any use of the information to criminally investigate or prosecute any alcohol or drug abuse patient.[facility] HospitalIn the event this information is protected by the Federal Confidentiality of Alcohol and Drug Abuse Patient Records regulations: The Federal rules restrict any use of the information to criminally investigate or prosecute any alcohol or drug abuse patient.[facility] HospitalIn the event this information is protected by the Federal Confidentiality of Alcohol and Drug Abuse Patient Records regulations: The Federal rules restrict any use of the information to criminally investigate or prosecute any alcohol or drug abuse patient.[facility] HospitalIn the event this information is protected by the Federal Confidentiality of Alcohol and Drug Abuse Patient Records regulations: The Federal rules restrict any use of the information to criminally investigate or prosecute any alcohol or drug abuse patient.[facility] Reason for Visit (unrecogniz ed section and content) Specialty Diagnoses / Procedures Referred By Contac t Referred To Contact PHYSICAL THERAPY Diagnoses Chronic midline low back pain without sciatica Procedures CONSULT TO PHYSICAL THERAPY PHYSICAL THERAPY EVALUATION HIGH COMPLEX 45 MINS Podlogar, [facility] Fernandez.RECORDER HELPER SEISMOGRAPH [address] [place] [address] Pt [facility] [address] [place] [address] Referral ID Status Reason Start Date Expiration Date Visits Requested Visits Authorized [id number] Authorized Auto-Generat ed Referral 09/30/2022 09/29/2023 20 20 Reason Comments Established Patient Pain Specialty Diagnoses / Procedures Referred By Contac t Referred To Contact Orthopedics Diagnoses Synovial cyst of left popliteal space Procedures CONSULT TO ORTHOPAEDICS NEW PATIENT VISIT LEVEL 5 Podlogar, Carolin, 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.RECORDER HELPER SEISMOGRAPH [address] [place] [address] Referral ID Status Reason Start Date Expiration Date V isits Requested Visits Authorized [id number] Closed PCP Requested Referral 03/08/2021 03/08/2022 1 1 Reason Comments Sjogren's Disease Reason Comments Received Outside Medical Records Reason Onset Date Comments Refill Request 04/17/2022 Reason Comments Recheck Seen in urgent care 04/20/22 for rash to left arm Reason Comments Patient Update Orders Reason Comments F/U 1 month Reason Onset Date Comments Refill Request 09/19/2022 Reason Comments Ear Pain left x couple weeks, drainage Reason Onset Date Comments Refill Request 11/13/2022 Reason Comments F/U 6 months Low Back Pain Has had for a while, seems to be getting worse Reason Comments Results Reason Comments Physical Therapy Reason Onset Date Comments Refill Request 05/26/2023 Reason Comments Orders Reason Onset Date Comments Population Health Navigation Outreach 09/03/2023 Manly med adherence Reason Comments F/U 6 months Reason Comments Refill Request Reason Onset Date Comments Refill Request 11/06/2023 Care Teams (unrecognized sec tion and content) Pharmacy Resource Tech Relationship Specialty Start Date End Date Ray Rivas MD [address] [place], [place] [address] PCP - General Family Practice 12/13/16 Benson Blanton MD [address] [facility] [place] [address] Home Care Physician Thoracic Surgery 06/19/19 Yara Farr RN [address] [place], [place] [id number] Benefits Clerk Post Acute Care 06/19/19 Pharmacy Resource Tech Relationship Specialty Start Date End Date Ray Rivas MD [address] [place] [address] PCP - General Family Practice 12/13/16 Benson Blanton MD [address] [place] [address] Home Care Physician Thoracic Surgery 06/19/19 Yara Farr RN [address] [place], [place] [address] Benefits Clerk Post Acute Care 06/19/19 Pharmacy Resource Tech Relationship Specialty Start Date End Date Ray Rivas MD [address] [place] [address] PCP - General Family Practice 12/13/16 Benson Blanton MD [address] [place] [address] Home Care Physician Thoracic Surgery 06/19/19 Yara Farr RN [address] [place] [address] Benefits Clerk Post Acute Care 06/19/19 Pharmacy Resource Tech Relationship Specialty Start Date End Date Ray Rivas MD [address] [place] [address] PCP - General Family Practice 12/13/16 Benson Blanton MD [address] [place] [address] Home Care Physician Thoracic Surgery 06/19/19 Yara Farr RN [address] [place] [address] Benefits Clerk Post Acute Care 06/19/19 Pharmacy Resource Tech Relationship Specialty Start Date End Date Ray Rivas MD [address] [place] [address] PCP - General Family Medicine 12/13/16 Benson Blanton MD [address] [place] [address] Home Care Provider Thoracic Surgery 06/19/19 Yara Farr RN [address] [place] [address] Benefits Clerk Post Acute Care 06/19/19 Pharmacy Resource Tech Relationship Specialty Start Date End Date Ray Rivas MD [address] [place] [address] PCP - General Family Medicine 12/13/16 Benson Blanton MD [address] [address] [place] [address] Home Care Provider Thoracic Surgery 06/19/19 Yara Farr RN [address] [place] [address] Benefits Clerk Post Acute Care 06/19/19 Pharmacy Resource Tech Relationship Specialty Start Date End Date Ray Rivas MD [address] [place] [address] PCP - General Family Medicine 12/13/16 Benson Blanton MD [address] [place] [address] Home Care Provider Thoracic Surgery 06/19/19 Yara Farr RN [address] [place] [address] Benefits Clerk Post Acute Care 06/19/19 Pharmacy Resource Tech Relationship Specialty Start Date End Date Ray Rivas MD [address] [place] [address] PCP - General Family Medicine 12/13/16 Benson Blanton MD [address] [address] [place] [address] Home Care Provider Thoracic Surgery 06/19/19 Yara Farr RN [address] [place] [address] Benefits Clerk Post Acute Care 06/19/19 Pharmacy Resource Tech Relationship Specialty Start Date End Date Ray Rivas MD [address] [place] [address] PCP - General Family Medicine 12/13/16 Benson Blanton MD [address] [address] [place] [address] Home Care Provider Thoracic Surgery 06/19/19 Yara Farr RN [address] [place] [address] Benefits Clerk Post Acute Care 06/19/19 Pharmacy Resource Tech Relationship Specialty Start Date End Date Ray Rivas MD [address] [place] [address] PCP - General Family Medicine 12/13/16 Benson Blanton MD [address] [place] [address] Home Care Provider Thoracic Surgery 06/19/19 Yara Farr RN [address] [place] [address] Benefits Clerk Post Acute Care 06/19/19 Pharmacy Resource Tech Relationship Specialty Start Date End Date Ray Rivas MD [address] [place] [address] PCP - General Family Medicine 12/13/16 Benson Blanton MD [address] [place] [address] Home Care Provider Thoracic Surgery 06/19/19 Yara Farr RN [address] [place] [address] Benefits Clerk Post Acute Care 06/19/19 Pharmacy Resource Tech Relationship Specialty Start Date End Date Ray Rivas MD [address] [place] [address] PCP - General Family Medicine 12/13/16 Benson Blanton MD [address] [place] [address] Home Care Provider Thoracic Surgery 06/19/19 Yara Farr RN [address] [place] [address] Benefits Clerk Post Acute Care 06/19/19 Pharmacy Resource Tech Relationship Specialty Start Date End Date Ray Rivas MD [address] [place] [address] PCP - General Family Medicine 12/13/16 Benson Blanton MD [address] [place] [address] Home Care Provider Thoracic Surgery 06/19/19 Yara Farr RN [address] [place], [place] [id number] Benefits Clerk Post Acute Care 06/19/19 Pharmacy Resource Tech Relationship Specialty Start Date End Date Ray Rivas MD [address] [place] [address] PCP - General Family Medicine 12/13/16 Benson Blanton MD [address] [place] [address] Home Care Provider Thoracic Surgery 06/19/19 Yara Farr RN [address] [place], [place] [id number] Benefits Clerk Post Acute Care 06/19/19 Pharmacy Resource Tech Relationship Specialty Start Date End Date Ray Rivas MD [address] [place] [address] PCP - General Family Medicine 12/13/16 Benson Blanton MD [address] [place] [address] Home Care Provider Thoracic Surgery 06/19/19 Yara Farr RN [address] [place], [place] [id number] Benefits Clerk Post Acute Care 06/19/19 Pharmacy Resource Tech Relationship Specialty Start Date End Date Ray Rivas MD [address] [place] [address] PCP - General Family Medicine 12/13/16 Benson Blanton MD [address] [place] [address] Home Care Provider Thoracic Surgery 06/19/19 Yara Farr RN [address] [place], [place] [id number] Benefits Clerk Post Acute Care 06/19/19 Pharmacy Resource Tech Relationship Specialty Start Date End Date Ray Rivas MD [address] [place] [address] PCP - General Family Medicine 12/13/16 Benson Blanton MD [address] [address] [place] [address] Home Care Provider Thoracic Surgery 06/19/19 Yara Farr RN [address] [place], [place] [id number] Benefits Clerk Post Acute Care 06/19/19 Pharmacy Resource Tech Relationship Specialty Start Date End Date Ray Rivas MD [address] [place] [address] PCP - General Family Medicine 12/13/16 Benson Blanton MD [address] [place] [address] Home Care Provider Thoracic Surgery 06/19/19 Yara Farr RN [address] [place], [place] [id number] Benefits Clerk Post Acute Care 06/19/19 Pharmacy Resource Tech Relationship Specialty Start Date End Date Ray Rivas MD [address] [place] [address] PCP - General Family Medicine 12/13/16 Benson Blanton MD [address] [place] [address] Home Care Provider Thoracic Surgery 06/19/19 Yara Farr RN [address] [place], [place] [id number] Benefits Clerk Post Acute Care 06/19/19 Pharmacy Resource Tech Relationship Specialty Start Date End Date Ray Rivas MD [address] [place] [address] PCP - General Family Medicine 12/13/16 Benson Blanton MD [address] [address] [place] [address] Home Care Provider Thoracic Surgery 06/19/19 Yara Farr RN [address] [place], [place] [id number] Benefits Clerk Post Acute Care 06/19/19 Pharmacy Resource Tech Relationship Specialty Start Date End Date Ray Rivas MD [address] [place] [address] PCP - General Family Medicine 12/13/16 Benson Blanton MD [address] [place] [address] Home Care Provider Thoracic Surgery 06/19/19 Yara Farr RN [address] [place], [place] [address] Benefits Clerk Post Acute Care 06/19/19 Pharmacy Resource Tech Relationship Specialty Start Date End Date Ray Rivas MD [address] [place] [address] PCP - General Family Medicine 12/13/16 Benson Blanton MD [address] [place] [address] Home Care Provider Thoracic Surgery 06/19/19 Yara Farr RN [address] [place], [place] [id number] Benefits Clerk Post Acute Care 06/19/19 Pharmacy Resource Tech Relationship Specialty Start Date End Date Ray Rivas MD [address] [place] [address] PCP - General Family Medicine 12/13/16 Benson Blanton MD [address] [place], [place] [id number] Home Care Provider Thoracic Surgery 06/19/19 Yara Farr RN [address] [place], [place] [id number] Benefits Clerk Post Acute Care 06/19/19 Pharmacy Resource Tech Relationship Specialty Start Date End Date Ray Rivas MD [address] [place] [address] PCP - General Family Medicine 12/13/16 Benson Blanton MD [address] [place] [address] Home Care Provider Thoracic Surgery 06/19/19 Yara Farr RN [address] [place], [place] [id number] Benefits Clerk Post Acute Care 06/19/19 FOR RECORDS PERTAINING TO PATIENTS WHO ARE OR HAVE BEEN ENROLLED IN A CHEMICAL DEPENDENCY/SUBSTANCEABUSE PROGRAM, SOME INFORMATION MAY BE OMITTED. This clinical summary was aggregated from multiple sources. Caution should be exercised in using it in the provision of clinical care. This summary normalizes information from multiple sources, and as a consequence, information in this document may materially change the coding, format and clinical context of patient data. In addition, data may be omitted in some cases. CLINICAL DECISIONS SHOULD BE BASED ON THE PRIMARY CLINICAL RECORDS. [facility]. provides no warranty or guarantee of the accuracy or completeness of information in this document.
--- NOTE | 2023-12-10 17:01 | STRESSREP_ITS ---
Stress Test Report Exercise myocardial perfusion stress test. 73-year-old lady with a history of chest pain Stress protocol: Resting EKG demonstrates normal sinus rhythm with a rate of 68 bpm resting blood pressure is 120/70 mmHg. The patient exercised according to the regular Qunicy protocol for a total duration of 6 minutes and 16 seconds attaining a maximum heart rate of 123 bpm which was 83% of maximum predicted heart rate; the maximum workload was 7.8 metabolic equivalents. At rest there were no ST or T wave changes noted to suggest ischemia and at peak exercise upsloping ST changes only were noted which did not meet the criteria for ischemia. No clinical angina was noted the test was terminated due to the target heart rate being achieved/fatig ue. The peak blood pressure was 134/60 mmHg. Rate-pressure product was 14,000. Myocardial perfusion protocol. 11.3 mCi of technetium 99m sestamibi was injected at rest. The patient exercised according to regular Quincy protocol for total duration of 6 minutes and 16 seconds and at peak exercise 33.9 mCi of technetium 99m sestamibi was injected stress images were obtained stress and rest images were reconstructed in comparing the short axis vertical long and horizontal long axis. Gated images were also obtained. Perfusion SPECT analysis: Review of the stress images demonstrate normal uptake of tracer noted in all areas of the myocardium. The resting images similarly demonstrate normal uptake of tracer noted in all areas of the myocardium. No areas of reversibility are noted to suggest ischemia no previous infarct was noted. Gated SPECT analysis: The gated ejection fraction is 77%. Conclusion: Normal exercise myocardial perfusion stress test at a moderate workload Preserved ejection fraction.
== END | disposition home or self-care (01) ==
PROVIDERS: PCP Family Medicine; Referring Provider Nurse Practitioner Gerontology; Visit Provider Nurse Practitioner Gerontology
DX: I34.0 Nonrheumatic mitral (valve) insufficiency (principal); I25.10 Atherosclerotic heart disease of native coronary artery without angina pectoris; Z95.1 Presence of aortocoronary bypass graft
CPT/HCPCS: 78452; 93017; 93306; A9500; A4216